=== PATIENT | male | born 1935 | race African-American/Black ===

== ENCOUNTER 2019-09-19 15:22 | Inpatient (IN) | payer MEDICARE ==
[~2019-09-19] VITALS: Ht 185.4 cm; Wt 73.5 kg
[2019-09-19] MEDS ORDERED: SODIUM CHLORIDE 0.9% 1000ML 1,000 ML IV STA ×3 (15:25→16:34)
--- NOTE | 2019-09-19 15:36 | NUR ---
WAS IN ED WHEN PT CAME INTO FACILITY, CALLED [facility], WAS TOLD THEY JUST ADMITTED HIM FROM [facility] ON 09-16 AND WAS AT [facility] PRIOR TO ADMITTING THERE. PLAN IS TO STABILIZE AND RETURN TO [facility]
[2019-09-19 16:14] LABS: BASOPHILS # (AUTO) 0.1 (0.0-0.1); BASOPHILS % 0.4 % (0.0-1.0); EOSINOPHILS % 0.2 % (0.0-6.0); HEMATOCRIT 34.4 % (38.2-49.6); LYMPHOCYTES # (AUTO) 2.6 (1.0-3.2); LYMPHOCYTES % 10.2 % (18.0-39.1); MEAN CORPUSCULAR HEMOGLOBIN 28.7 pg (28-32); MEAN CORPUSCULAR HGB CONC 29.1 g/dL (31-35); MEAN CORPUSCULAR VOLUME 98.6 fL (81-99); MONOCYTES # (AUTO) 1.8 (0.2-0.8); MONOCYTES % 7.1 % (4.4-11.3); NEUTROPHILS # (AUTO) 20.3 (2.1-6.9); NEUTROPHILS % 80.4 % (38.7-80.0); PLATELET COUNT 150 x10e3/uL (140-360); RED BLOOD COUNT 3.49 x10e6/uL (4.3-5.7); RED CELL DISTRIBUTION WIDTH 19.7 % (11.7-14.4)
[2019-09-19 16:23] LABS: INR 1.44; PROTHROMBIN TIME 18.5 seconds (11.9-14.5)
[2019-09-19 16:24] LABS: PARTIAL THROMBOPLASTIN TIME 48.7 seconds (23.8-35.5)
--- NOTE | 2019-09-19 16:30 | NUR ---
Changed ranjan hill # 6 before placed pt on ventilator.
[2019-09-19 16:33] LABS: ALANINE AMINOTRANSFERASE 26 IU/L (0-55); ALBUMIN 1.6 g/dL (3.5-5.0); ALBUMIN/GLOBULIN RATIO 0.2 (0.8-2.0); ALKALINE PHOSPHATASE 89 IU/L (40-150); ANION GAP 12.2 mmol/L (8-16); BLOOD UREA NITROGEN 73 mg/dL (7-26); BUN/CREATININE RATIO 60 (6-25); CALCIUM 10.3 mg/dL (8.4-10.2); CARBON DIOXIDE 32 mmol/L (22-29); CHLORIDE 121 mmol/L (98-107); CREATINE KINASE 162 IU/L (30-200); CREATININE, SERUM 1.21 mg/dL (0.72-1.25); EST GLOMERULAR FILTRATION RATE > 60 ML/MIN (60-); GLUCOSE 75 mg/dL (74-118); POTASSIUM 4.2 mmol/L (3.5-5.1)
[2019-09-19] MEDS ORDERED: VANCOMYCIN 1GM/NS 250 ML 250 ML IV STA (16:34)
[2019-09-19 16:37] LABS: SODIUM 161 mmol/L (136-145)
[2019-09-19 16:38] LABS: B-TYPE NATRIURETIC PEPTIDE2 92.1 pg/mL (0-100)
[2019-09-19 16:43] LABS: LEUKOCYTE ESTERASE ,URINE LARGE (NEGATIVE); NITRITE,URINE POSITIVE (NEGATIVE); PROTEIN,URINE DIPSTICK 2+ (NEGATIVE); URINE UROBILINOGEN 0.2 mg/dL (0.2 - 1)
[2019-09-19 16:44] LABS: BACTERIA,URINE MODERATE /HPF; BILIRUBIN,URINE NEGATIVE (NEGATIVE); CLARITY,URINE CLOUDY (CLEAR); COLOR,URINE YELLOW (YELLOW); KETONES,URINE NEGATIVE (NEGATIVE); WBC,URINE (MAN) >50 /HPF (0-5)
[2019-09-19] MEDS ORDERED: CEFEPIME HCL 1 GM VIAL IV SCH (16:45)
[2019-09-19] MEDS ORDERED: LACTATED RINGER'S 1,000 ML INJ STA (17:33)
[2019-09-19] MEDS: CEFEPIME 1GM/NS 0.9% 50 ML 50 ML IV SCH (17:41)
[2019-09-19 17:44] LABS: ABG HCO3 34 mmol/L (22-26); ABG PCO2 50 mmHg (35-45); ABG PH 7.45 (7.35-7.45)
--- NOTE | 2019-09-19 17:50 | NUR ---
per [facility] pt diet fibersource at 575 mL/hr
--- NOTE | 2019-09-19 18:21 | Diagnostic Imaging Report ---
EXAMINATION: CHEST SINGLE (PORTABLE) INDICATION: COMPARISON: None FINDINGS: AP view TUBES and LINES: Tracheostomy tube tube is in place. LUNGS/PLEURA: There are bilateral patchy opacities could represent multifocal pneumonia or edema.. There is a moderate right pleural effusion with associated atelectasis. HEART AND MEDIASTINUM: The cardiomediastinal silhouette is unremarkable. BONES AND SOFT TISSUES: No acute osseous lesion. Soft tissues are unremarkable. UPPER ABDOMEN: No free air under the diaphragm. IMPRESSION: 1. Bilateral patchy opacities could represent multifocal pneumonia or edema. 2. Moderate right pleural effusion with associated atelectasis. Signed by: Jah Salmon MD on 09/19/2019 6:17 PM
--- NOTE | 2019-09-19 19:36 | Consultation ---
DATE OF CONSULTATION: Pulmonary Critical Care Consultation CHIEF COMPLAINT: Leukocytosis, hypotension, and tachypnea in a patient with metastatic lung cancer. HISTORY OF PRESENT ILLNESS: The patient is an 83-year-old man. He has a history of lung cancer and that originated in the right upper lobe. He has associated brain metastases. He was treated with surgery and radiation. He has also had problems with recurrent seizures. He required admission to [facility] in July for status epilepticus. He was intubated. He was then treated with IV antibiotics for aspiration pneumonia. He eventually required a tracheostomy and PEG. He was subsequently sent to LTAC and then to SNF. He now comes from the intermediate facility with worsening dyspnea and low blood pressure. He has no chest pain. PAST SURGICAL HISTORY: 1. Status post feeding tube. 2. Status post tracheostomy. PAST MEDICAL HISTORY: 1. Metastatic lung cancer. 2. Recurrent seizure disorder. 3. Prior CVA. 4. COPD. 5. Aspiration pneumonia. SOCIAL HISTORY: The patient is not actively smoking. He is not an active drinker. He lives at the intermediate facility. FAMILY HISTORY: Family history is noncontributory. ALLERGIES: NO KNOWN DRUG ALLERGIES. REVIEW OF SYSTEMS: There was no reported fever. He did not have headache. He had altered mental status. He did not have neck pain. He was not describing any chest pain or nausea or vomiting. He has no leg edema. PHYSICAL EXAMINATION: VITAL SIGNS: The patient is tachycardiac in the 110 to 120 range. Blood pressure is 102/41 and the saturation is now 97%. He is on a pressure regulated volume control at a rate of 18 with a tidal volume of 400 and FiO2 of 45%. His PEEP is at 5. HEENT: Shows no facial swelling or erythema. He has a tracheostomy in good position. CARDIAC: Reveals tachycardia with normal S1 and S2. LUNGS: Auscultation of lungs reveals decreased breath sounds to bases. There is no wheezing. ABDOMEN: Soft and nontender. There is no rebound or guarding. EXTREMITIES: Shows no leg edema or calf tenderness. There is atrophy and muscle loss. NEUROLOGICAL: Shows the patient not respond well. LABORATORY DATA: White blood cell count is 25.26, hemoglobin is 10, and the platelet count is 150. Today's sodium is 161 and the BUN to creatinine ratio is 73 to 1.21. Lactic acid is 5.7 and the calcium is 10.3. Albumin is 1.6. Urinalysis shows greater than 50 white blood cells. IMPRESSION: 1. Urinary tract infection with septic shock, present on admission. 2. Hypotension and hypovolemia. 3. Acute kidney injury. 4. Hypernatremia. 5. Metastatic colon cancer. 6. Recurrent seizure disorder. PLAN: 1. The patient will receive IV fluids at 30 mL/kg. 2. Broad-spectrum antibiotics. 3. Await culture results. 4. Stat portable chest x-ray. 5. ABG. 6. Continue prior seizure medications. 7. Prognosis is very poor. 8. Try and clarify code status with family. Raman Swenson MD [facility]/MODL /[id number]
[2019-09-19] MEDS: SODIUM CHLORIDE 0.45% 1,000 ML IV SCH (20:55)
[2019-09-19 21:26] LABS: ANISOCYTOSIS SLIGHT; BAND NEUTROPHILS % (MANUAL) 6 %; HYPOCHROMASIA SLIGHT; LYMPHOCYTES % (MANUAL) 12 % (19-48); MONOCYTES % (MANUAL) 6 % (3.4-9.0); NEUTROPHILS % (MANUAL) 76 % (40-74); NUCLEATED RED BLOOD CELLS 1; PLATELET ESTIMATE ADEQUATE; PLATELET MORPHOLOGY COMMENT NORMAL; POIKILOCYTOSIS SLIG; RBC MORPHOLOGY COMMENT NORMAL
[2019-09-19 22:20] LABS: ALANINE AMINOTRANSFERASE 23 IU/L (0-55); ALBUMIN 1.4 g/dL (3.5-5.0); ALBUMIN/GLOBULIN RATIO 0.2 (0.8-2.0); ALKALINE PHOSPHATASE 82 IU/L (40-150); ANION GAP 8.2 mmol/L (8-16); BLOOD UREA NITROGEN 59 mg/dL (7-26); BUN/CREATININE RATIO 66 (6-25); CALCIUM 9.3 mg/dL (8.4-10.2); CARBON DIOXIDE 30 mmol/L (22-29); CHLORIDE 127 mmol/L (98-107); EST GLOMERULAR FILTRATION RATE > 60 ML/MIN (60-); GLUCOSE 93 mg/dL (74-118); POTASSIUM 3.2 mmol/L (3.5-5.1)
[2019-09-19 22:21] LABS: SODIUM 162 mmol/L (136-145)
--- NOTE | 2019-09-19 22:50 | NUR ---
Telephone report received from Dodie Mireles RN in ER.
[2019-09-19 23:00] VITALS: BP 95/74
--- NOTE | 2019-09-19 23:00 | NUR ---
Pt received to ICU room 193 via stretcher from ER. Trach to nicholas. Garcia to gravity. Restrains intact. Full skin assessment and full assessment completed, refer to documentation improvement specialist as needed. Bed in lowest and locked position, call light in reach of the pt.
[2019-09-19] MEDS ORDERED: BUDESONIDE0.5 GM IH (23:58)
[2019-09-19] MEDS ORDERED: DOCUSATE SODIU100 MG PEG (23:58)
[2019-09-19] MEDS ORDERED: CALCIUM CARBON500 MG PEG (23:58)
[2019-09-19] MEDS ORDERED: DULCOLAX SUPP10 MG RC (23:58)
[2019-09-19] MEDS ORDERED: ACETYLCYST100 MG/1 M IH (23:58)
[2019-09-19] MEDS ORDERED: ASCORBIC ACID500 MG PEG (23:58)
[2019-09-20] VITALS (25 sets, daily range): BP systolic 71–124; BP diastolic 38–85
--- NOTE | 2019-09-20 00:03 | Diagnostic Imaging Report ---
History:Altered Comparison studies:None Technique: Axial images were obtained from the skull base to the vertex. Coronal and sagittal images reconstructed from the axial data. Intravenous contrast: None Dose modulation, iterative reconstruction, and/or weight based adjustment of the mA/kV was utilized to reduce the radiation dose to as low as reasonably achievable. Findings: Limited study by motion artifact. Scalp/skull: Left occipital craniectomy changes with overlying mesh. Partial opacification of the left mastoid air cells and left sphenoid sinus. Opacification of the left sphenoid sinus with sclerotic bone changes. Extra-axial spaces: No masses. No fluid collections. Brain sulci: Moderately prominent. Ventricles: Moderate compensatory dilatation. No hydrocephalus. Parenchyma: Scattered hypodensities in the supratentorial white matter are small vessel ischemic changes. Cortical-based hypodensity at the bilateral posterior occipital lobes and left posterior cerebellum with associated volume loss. Chronic lacunar infarct at the right lateral thalamus. No masses, hemorrhage or acute cortical vascular insults. Sellar/suprasellar region: No abnormalities. Craniocervical junction: Patent foramen magnum. No Chiari one malformation. Incidental findings: Atherosclerotic calcifications in the carotid siphons and vertebral arteries . Impression: Limited study by motion artifact. No significant acute abnormalities. Chronic findings: 1. Moderate generalized volume loss. 2. Moderate supratentorial white matter small vessel ischemic changes. 3. Remote insults at the bilateral posterior occipital lobes. 4. Left occipital craniectomy with underlying encephalomalacia of the ipsilateral posterior cerebellum. 5. Chronic inflammatory changes of the left sphenoid sinus. Signed by: DR Ran Gordon M.D. on 09/20/2019 12:00 AM
[2019-09-20] MEDS ORDERED: GUAIFENESI100 MG/5 M PEG (00:05)
[2019-09-20] MEDS ORDERED: FAMOTIDINE20 MG PEG (00:05)
[2019-09-20] MEDS ORDERED: ENOXAPARIN40 MG/0.4 SC (00:05)
[2019-09-20] MEDS ORDERED: IPRAT-ALBUT 0.5-3 ML IH (00:05)
[2019-09-20] MEDS ORDERED: MULTI-VITAMIN1 EACH PEG (00:05)
[2019-09-20] MEDS ORDERED: GLYCOPYRROL PEG (00:05)
[2019-09-20] MEDS ORDERED: FUROSEMIDE40 MG PEG (00:05)
[2019-09-20] MEDS ORDERED: LEVETIRACETAM500 MG PEG (00:05)
[2019-09-20] MEDS ORDERED: VALPROIC A250 MG/5 M PEG (00:06)
[2019-09-20] MEDS ORDERED: QUETIAPINE FUMA25 MG PEG (00:06)
--- NOTE | 2019-09-20 04:38 | NUR ---
Nasal Flu swab collected at this time.
[2019-09-20 05:26] LABS: BASOPHILS # (AUTO) 0.1 (0.0-0.1); BASOPHILS % 0.3 % (0.0-1.0); HEMATOCRIT 25.4 % (38.2-49.6); HEMOGLOBIN 7.5 g/dL (14.0-18.0); LYMPHOCYTES # (AUTO) 1.6 (1.0-3.2); LYMPHOCYTES % 7.5 % (18.0-39.1); MEAN CORPUSCULAR HEMOGLOBIN 28.7 pg (28-32); MEAN CORPUSCULAR HGB CONC 29.5 g/dL (31-35); MEAN CORPUSCULAR VOLUME 97.3 fL (81-99); MONOCYTES # (AUTO) 1.7 (0.2-0.8); MONOCYTES % 7.8 % (4.4-11.3); NEUTROPHILS % 83.8 % (38.7-80.0); PLATELET COUNT 170 x10e3/uL (140-360); RED BLOOD COUNT 2.61 x10e6/uL (4.3-5.7); RED CELL DISTRIBUTION WIDTH 18.6 % (11.7-14.4)
[2019-09-20 05:45] LABS: ALANINE AMINOTRANSFERASE 19 IU/L (0-55); ALBUMIN 1.2 g/dL (3.5-5.0); ALBUMIN/GLOBULIN RATIO 0.3 (0.8-2.0); ALKALINE PHOSPHATASE 70 IU/L (40-150); ANION GAP 8.5 mmol/L (8-16); BLOOD UREA NITROGEN 50 mg/dL (7-26); BUN/CREATININE RATIO 64 (6-25); CALCIUM 8.5 mg/dL (8.4-10.2); CARBON DIOXIDE 28 mmol/L (22-29); CHLORIDE 126 mmol/L (98-107); CREATININE, SERUM 0.78 mg/dL (0.72-1.25); EST GLOMERULAR FILTRATION RATE > 60 ML/MIN (60-); GLUCOSE 75 mg/dL (74-118); POTASSIUM 3.5 mmol/L (3.5-5.1); SODIUM 159 mmol/L (136-145)
[2019-09-20] MEDS: CEFEPIME 1GM/NS 0.9% 50 ML 50 ML IV SCH (06:20)
[2019-09-20] MEDS: SODIUM CHLORIDE 0.45% 1,000 ML IV SCH ×2 (06:20→16:09)
[2019-09-20] MEDS ORDERED: NOREPINEPHRINE 8 MG/D5W 250 ML 250 ML ONE (07:45)
[2019-09-20] MEDS ORDERED: SODIUM CHLORIDE 0.9% 500ML 500 ML IV ONE (08:00)
[2019-09-20] MEDS: NOREPINEPHRINE INJ 4MG/4ML 8 MG in DEXTROSE 5% 250ML 250 ML IV PRN (08:15)
--- NOTE | 2019-09-20 12:39 | Operative Report ---
DATE OF PROCEDURE: SURGEON: Raman Swenson MD PROCEDURE: Central line placement under ultrasound guidance. PREOPERATIVE DIAGNOSIS: Urinary tract infection with septic shock. POSTOPERATIVE DIAGNOSIS: Urinary tract infection with septic shock ANESTHESIA: 1% lidocaine was used for local anesthesia. CONSENT: Consent was deemed emergent and based on the patient's septic shock and hypotension, the patient needed pressors. DESCRIPTION OF PROCEDURE: The patient was placed in a supine position. The right groin was prepped sterilely. A full length gown, full-length sterile drape, mask, and sterile gloves were used. The ultrasound machine was used to locate the right femoral vein. The skin was anesthetized with 1% lidocaine. The right femoral vein was then cannulated under direct visualization with a 16-gauge needle. A wire was placed through the needle. A dilator was used to dilate the skin. A triple-lumen catheter was then placed over the wire by the Seldinger technique. All the ports flushed. COMPLICATIONS: None. ESTIMATED BLOOD LOSS: Minimal. Raman Swenson MD [facility]/MODL /[id number]
--- NOTE | 2019-09-20 14:29 | NUR ---
Nutrition Intervention Note RD Recommendation(s) for Physician: -Continue Vital AF 1.2 @ goal rate of 50 mL/hr (provides 1440 kcal, 90 g protein, and 973 mL water) -Water flush per MD Plan of Care: RD following, monitoring for tolerance and adequacy Nutrition reason for involvement: Nutrition Risk Trigger MST [address] Assessment (09/20/19) Pt is a 83 year old male admitted with acute on chronic respiratory failure, hypernatremia, and septic shock. Pt has a tracheostomy and is currently mechanically ventilated. Vital AF 1.2 tube feedings were started with a goal rate of 50 mL/hr. Recommend to continue current tube feed as ordered. Unable to obtain weight history at this time and there are no previous weights in chart. Will continue to monitor. Principal Problems/Diagnoses: acute on chronic respiratory failure, hypernatremia, and septic shock PMH: metastatic lung cancer, recurrent seizure disorder, prior CVA, COPD, and aspiration pneumonia, feeding tube, and tracheostomy I/O: 900/250 GI: flat, soft, nontender abdomen Skin: unstageable sacral pressure ulcer, multiple suspected deep tissue injuries Labs: (09/20/19) Na 159, K 3.5, Cl 126, BUN 50, Cr 0.78, AST 35 Meds: norepinephrine, cefepime, NaCl @ 100 mL/hr Ht: 73 inches Wt: 157 lbs BMI: 20.7 kg/m2 IBW: 184 lbs Malnutrition Evaluation (09/20/19) Unable to assess. Will re-evaluate at follow-up as appropriate. Nutrition Prescription (Diet Order): Vital AF 1.2 @ goal rate of 50 mL/hr Estimated Nutritional Needs: 6599-6681 calories/day (20-25 kcal/kg CBW) 86-143 g protein/day (1.2-2 g pro/kg CBW) Diet Adequacy: Meeting calorie needs, Meeting protein needs with current tube feed order Tolerance: Tolerance pending Diet Education Needs Assessment: Diet education not indicated Nutrition Care Level: moderate Nutrition Diagnosis: Inadequate oral intake related to medical condition as evidenced by the pt needing mechanical ventilation and need for TF to meet energy and protein needs. Goal: Patient will meet 75-100% of estimated needs by follow up Progress: N/A Interventions: -EN: Composition, Rate, Route Monitoring/Evaluation: -Total energy intake, Total protein intake, Formula/Solution, Weight change Signed: Jennifer Sellers RD, LD
--- NOTE | 2019-09-20 16:55 | Progress Note ---
DATE: Pulmonary Critical Care Progress Note SUBJECTIVE: The patient is still not responding well. He remains on a mechanical ventilator. He had worsening hypotension overnight and had to be started on Levophed. He has received additional fluids, and his Levophed is now down is 3 mcg. PHYSICAL EXAMINATION: VITAL SIGNS: The patient is afebrile. The blood pressure is 102/72 and saturation is 100%. He is on a PRVC mode of ventilation at a rate of 18 with a tidal volume of 400. HEENT: Shows no facial swelling or erythema. CARDIAC: Reveals regular rate and rhythm with normal S1, S2. LUNGS: Auscultation of lungs shows decreased breath sounds at the bases. There is no wheezing. ABDOMEN: Soft, nontender. There is no rebound or guarding. EXTREMITIES: Show no leg edema or calf tenderness. There is no cyanosis or clubbing. SKIN: Shows no rashes. NEUROLOGIC: Shows the patient not be responding well. LABORATORY DATA: White blood cell count is 21.4, hemoglobin is 7.5, and platelet count is 170. BUN to creatinine ratio is 50:0.78. The lactic acid is 1.3. The sodium is 159. Albumin is 1.2. IMPRESSION: 1. Respiratory failure, acute on chronic. 2. Urinary tract infection with septic shock, present on admission. 3. Hypotension and hypovolemia. 4. Acute kidney injury. 5. Metastatic lung cancer. 6. Brain metastases. 7. Seizure disorder. PLAN: 1. Continue antibiotics and await culture results. 2. Continue intravenous fluids and free water. 3. Await culture results. 4. Repeat ABG. 5. Palliative Care consultation. 6. Prognosis remains very poor. 7. Case discussed with Internal Medicine, nursing staff, and Respiratory. Greater than 35 minutes in direct critical care time separate from any procedures performed. Raman Swenson MD [facility]/JOANNE /[id number]
--- NOTE | 2019-09-20 17:29 | NUR ---
WOUND CARE CONSULT FOR 83 YO MALE HX OF MUSCLE ATROPHY. INÉS 11 ON STRICT PUP STATUS AND INTERVENTIONS AND ALTERNATING PRESSURE MATTRESS. LABS: WBC-21.47 HGB-7.5 MICRO- URINE CULTURE / BLOOD CULTURE PENDING. MEDS: CEFEPIME HCL IV AND VANCOMYCIN HCL IV SKIN ASSESSMENT COMPLETE PATIENT PRESENTS WITH: 1)STAGE II PRESSURE ULCER TO SACRUM MEASURING 2 CM X 3 CM X 0.1 CM , AND 80% PINK GRANULATION, 20 % YELLOW SLOUGH AND NON BLANCHABLE DTI PERIWOUND AREA . MINIMAL SEROUSANGUINEOUS DRAINAGE. 2)DTI, DARK PURPLE NON BLANCHEABLE TO POSTERIOR SACRO GLUTEAL AREA; MEASURING 10CM X 14 CM WITH MINIMAL SEROUSANGUINEOUS DRAINAGE. 3)RIGHT 4TH TOE STAGE 1 PRESSURE ULCER MEASURING 0.5CM X 0.5CM. NON BLANCHABLE REDNESS PRESENT. NO DRAINAGE. 4)RIGHT 5TH TOE STAGE 1 PRESSURE ULCER, MEASURING 2CM X 0.8 CM X 0, NON BLANCHABLE REDNESS PRESENT. NO DRAINAGE. 5)RIGHT PROXIMAL LATERAL FOOT UNSTAGABLE ULCER MEASURING 1 CM X 4 CM ; NO DRAINAGE PRESENT. 6)RIGHT DISTAL LATERAL FOOR UNSTAGABLE ULCER MEASURING 1.5 CM X 3 CM; NO DRAINAGE PRESENT. 7)LEFT AXILLAR PINK BLANCHEABLE AREA MEASURING 1CM X 3 CM. 8)PT PRESENTS WITH MULTIPLE HEALING SCABS TO BILATERAL LOWER LEGS. RECOMMENDATIONS: NURSING TO CONTINUE TO MONITOR PATIENT AND TO FOLLOW STRICT PUP INTERVENTIONS NURSING TO CLEAN STAGE II PRESSURE POSTERIOR SACRUM WITH NORMAL SALINE, PAT DRY WITH 4X4 GAUZE, APPLY FIBRACOL TO OPEN WOUND BED, THEN APPLY VENELEX OINTMENT TO DTI AREA PERIWOUND AND COVER WITH ALLEVYN FOAM DRESSING DAILY AND NEEDED. NURSING TO CLEAN RIGHT 4TH AND 5TH TOE WITH NORMAL SALINE, PAT DRY WITH 4X4 GAUZE, PAINT WITH BETADINE, AND LEAVE OPEN TO AIR. NURSING TO CLEAN LATERAL PROXIMAL AND DISTAL UNSTABLE ULCERS TO RIGHT FOOT WITH NORMAL SALINE, PAT DRY WITH 4X4 GAUZE, PAINT WITH BETADINE, AND COVER WITH ALLEVYN FOAM. NURSING TO APPLY ALLEVYN FOAM TO BILATERAL HEELS DAILY TO RELIVE PRESSURE. NURSING TO CONTINUE TO ASSIST PATIENT NEEDED WITH MEALS AND NUTRITIONAL SUPPLEMENTS TO ENSURE PROPER REQUIREMENTS FOR HEALING NURSING TO CONTINUE TO OFFLOAD FEET AND HEELS NEEDED WITH PILLOW SUSPENSION WHEN IN BED. NURSING TO APPLY BILATERAL HEEL PROTECTORS WHILE IN BED. NURING TO APPLY LOTION TO BILATERAL LOWER LEGS. NURSING TO REPOSITION PATIENT SIDE TO SIDE Q2H AND PRN. NURSING TO CONSULT WOUND CARE NEEDED. Addendum: 09/20/19 at 1744 by Kaylee Patel RN Amended: Links added.
--- NOTE | 2019-09-20 18:20 | NUR ---
Dr. Shaila Swenson at bedside this morning to emergently place central line due to hypotension. NS bolus started. CVC placed in R femoral, per Dr. Shaila Swenson ok to use line. Levophed drip started. Lactic acid repeated. Tube feed orders given. ic designer custom came to assess wounds. Consult placed for palliative care per Dr. Ghazala Oconnell.
[2019-09-20] MEDS: MEROPENEM 1GM 100 ML IV SCH (21:03)
[2019-09-21] VITALS (25 sets, daily range): BP systolic 83–127; BP diastolic 41–101
[2019-09-21] MEDS ORDERED: VANCOMYCIN 1GM/NS 250 ML 250 ML IV ONE
[2019-09-21] MEDS ORDERED: DIATRIZOATE MEGL/DIATRIZOA SOD 30 ML BTL PO ONE (00:21)
[2019-09-21] MEDS: SODIUM CHLORIDE 0.45% 1,000 ML IV SCH (01:14)
--- NOTE | 2019-09-21 01:20 | Diagnostic Imaging Report ---
EXAM: Abdomen Radiograph 1 View(s) INDICATION: ^peg tube positon ^[id number] ^0000 COMPARISON: None FINDINGS: Severely limited study due to technique and motion artifact. The bowel gas pattern is nonspecific. A gastrostomy tube projects over the left abdomen. High density material projects over the abdominal left upper quadrant. Partially visualized bilateral lower lobe airspace disease with bilateral pleural effusions. IMPRESSION: Severely limited study due to technique and motion artifact. A gastrostomy tube projects over the left abdomen. High density material, likely contrast media, projects over the abdominal left upper quadrant; however, it is difficult to ascertain whether this material is within or external to the stomach due to the limitations of this examination. Signed by: Ever Chappell MD on 09/21/2019 1:17 AM
--- NOTE | 2019-09-21 02:29 | NUR ---
@2330 attempted to suction the pt, I discovered that the secretions from the trach has the same color and texture as the tube feed. held tube feed. notified Dr. Swenson, he said ok to hold feeding, received an order for ABG,VANCO 1g Q24HRS, and CXR. pt resting, VS stable will continue to monitor
[2019-09-21 05:56] LABS: BASOPHILS # (AUTO) 0.1 (0.0-0.1); BASOPHILS % 0.3 % (0.0-1.0); EOSINOPHILS # (AUTO) 0.2 (0.0-0.4); HEMATOCRIT 27.3 % (38.2-49.6); LYMPHOCYTES % 5.5 % (18.0-39.1); MEAN CORPUSCULAR HGB CONC 29.3 g/dL (31-35); MEAN CORPUSCULAR VOLUME 95.5 fL (81-99); MONOCYTES # (AUTO) 0.9 (0.2-0.8); MONOCYTES % 5.3 % (4.4-11.3); NEUTROPHILS # (AUTO) 15.4 (2.1-6.9); NEUTROPHILS % 87.2 % (38.7-80.0); PLATELET COUNT 177 x10e3/uL (140-360); RED BLOOD COUNT 2.86 x10e6/uL (4.3-5.7); RED CELL DISTRIBUTION WIDTH 18.7 % (11.7-14.4)
[2019-09-21 06:10] LABS: ALANINE AMINOTRANSFERASE 22 IU/L (0-55); ALBUMIN 1.2 g/dL (3.5-5.0); ALBUMIN/GLOBULIN RATIO 0.2 (0.8-2.0); ALKALINE PHOSPHATASE 96 IU/L (40-150); ANION GAP 9.7 mmol/L (8-16); BLOOD UREA NITROGEN 37 mg/dL (7-26); BUN/CREATININE RATIO 48 (6-25); CALCIUM 9.1 mg/dL (8.4-10.2); CARBON DIOXIDE 26 mmol/L (22-29); CHLORIDE 125 mmol/L (98-107); CREATININE, SERUM 0.77 mg/dL (0.72-1.25); EST GLOMERULAR FILTRATION RATE > 60 ML/MIN (60-); SODIUM 158 mmol/L (136-145)
[2019-09-21 06:19] LABS: GLUCOSE 57 mg/dL (74-118)
[2019-09-21 06:20] LABS: POTASSIUM 2.7 mmol/L (3.5-5.1)
--- NOTE | 2019-09-21 06:25 | Diagnostic Imaging Report ---
EXAMINATION: CHEST SINGLE (PORTABLE) INDICATION: ^Infiltrates ^[id number] ^0545 COMPARISON: 09/19/2019 FINDINGS: AP view TUBES and LINES: Unchanged tracheostomy tube. LUNGS: Unchanged bilateral airspace disease. PLEURA: Unchanged moderate right pleural effusion. Probable small left pleural effusion. Unchanged decreased lung markings of the right lateral lung with possible pleural line. HEART AND MEDIASTINUM: The cardiomediastinal silhouette is unchanged. Unchanged fullness of the central pulmonary vasculature. BONES AND SOFT TISSUES: No acute osseous lesion. Soft tissues are unremarkable. IMPRESSION: 1. Unchanged bilateral pulmonary airspace disease suggestive of pulmonary edema. Multifocal pneumonia may appear similar. 2. Unchanged moderate right pleural effusion. Unchanged decreased markings of the right lateral lung with questionable pleural line which may reflect a small pneumothorax. Consider lateral radiography for further evaluation. Signed by: Ever Chappell MD on 09/21/2019 6:22 AM
--- NOTE | 2019-09-21 06:47 | NUR ---
Notified Dr. Swenson about the Low potassium of 2.7, and Low Blood glucose of of 57. received an order for D51/2NS @ 100mL/hr. tube feed still on hold for possible aspiration MD aware. pt resting will continue to monitor
[2019-09-21] MEDS: DEXTROSE 5%/0.45% SOD CHL 1,000 ML IV SCH ×2 (07:06→15:30)
[2019-09-21 08:21] LABS: ANISOCYTOSIS SLIGHT; BAND NEUTROPHILS % (MANUAL) 4 %; EOSINOPHILS % (MANUAL) 1 % (0-7); LYMPHOCYTES % (MANUAL) 5 % (19-48); MONOCYTES % (MANUAL) 3 % (3.4-9.0); NEUTROPHILS % (MANUAL) 83 % (40-74); PLATELET ESTIMATE ADEQUATE; PLATELET MORPHOLOGY COMMENT NORMAL; RBC MORPHOLOGY COMMENT ABNORMAL
[2019-09-21] MEDS: BALSAM PERU/CASTOR OIL 60 GM OINT...G. TP SCH (08:55)
[2019-09-21] MEDS: MEROPENEM 1GM 100 ML IV SCH ×2 (08:55→21:07)
[2019-09-21] MEDS: HYDROCODONE BIT/ACETAMINOPHEN 2.5 MG/108MG PER 5 ML SOLUTION NG PRN (10:10)
[2019-09-21] MEDS ORDERED: POTASSIUM CHLORIDE 20MEQ/100ML 200 ML IV ONE (12:30)
[2019-09-21] MEDS ORDERED: DEPAKENE 500MG/10ML UDC PEG SCH (14:30)
[2019-09-21] MEDS: OYST-CAL-D 500MG TABLET PEG SCH (14:46)
[2019-09-21] MEDS: ASCORBIC ACID 500 MG TAB PEG SCH (14:46)
[2019-09-21] MEDS: LEVETIRACETAM 500 MG TAB PEG SCH (14:47)
[2019-09-21] MEDS: VALPROATE 250MG/5ML ORAL LIQ 5ml PEG SCH (14:54)
--- NOTE | 2019-09-21 15:14 | Progress Note ---
DATE: SUBJECTIVE: The patient remains on mechanical ventilator. He is on a PRVC at a rate of 16 with a tidal volume of 600. He continues on low-dose Levophed. He is not having fevers. PHYSICAL EXAMINATION: VITAL SIGNS: The blood pressure is 93/56 and saturation is 96%. He is on a PRVC at a rate of 16 with a tidal volume of 400 and FiO2 of 45%. HEENT: Shows no facial swelling or erythema. The patient has tracheostomy in place. The site looks clean. CARDIAC: Reveals regular rate and rhythm with normal S1, S2. LUNGS: Auscultation of lungs reveals rhonchorous breath sounds bilaterally. There is no wheezing. ABDOMEN: Soft, nontender. There is no rebound or guarding. EXTREMITIES: Show no leg edema or calf tenderness. LABORATORY DATA: White blood cell count is 17.6 and hemoglobin is 8. The platelet count is 177. The potassium is 2.7 and the sodium is 158. The BUN to creatinine ratio is 37 to 0.77. RADIOGRAPHIC DATA: Chest x-ray shows bilateral airspace disease. IMPRESSION: 1. Acute on chronic respiratory failure. 2. Urinary tract infection with septic shock, present on admission. 3. Acute kidney injury. 4. Metastatic lung cancer. 5. Brain metastases. 6. Seizure disorder. 7. Hypernatremia. PLAN: 1. Continue to give free water as well as intravenous volume. 2. Wean pressures. 3. Continue current antibiotics and await pressor results. 4. Continue mechanical ventilation for now. 5. The prognosis remains very poor. 6. Case discussed with Internal Medicine, nursing staff, and Respiratory. Greater than 35 minutes in direct critical care time. Raman Swenson MD [facility]/MODL /[id number]
--- NOTE | 2019-09-21 17:39 | NUR ---
Dr. Ghazala Oconnell gave orders for potassium replacement. Wound care done. Dr. Shaila Swenson gave orders to restart tube feeds at 10 ml/hr with 200 ml q4 hrs flushes. ABG results called to Dr. Shaila Swenson. Orders given for specialty bed, pt placed on bed. Will continue to monitor.
--- NOTE | 2019-09-21 18:58 | NUR ---
Pt went into a run of afib RVR with HR in 150's. Dr. Shaila Swenson informed orders given for echocardiogram and amiodarone protocol.
[2019-09-21] MEDS ORDERED: AMIODARONE HCL 150 MG/100 ML BAG IV ONE (19:00)
[2019-09-21] MEDS: AMIODARONE HCL 900 MG in DEXTROSE 5% 500ML 500 ML IV SCH (20:00)
[2019-09-21] MEDS: ENOXAPARIN SOD INJ 40 MG/0.4 ML SYR SC SCH (21:07)
[2019-09-21] MEDS: VANCOMYCIN 1GM/NS 250 ML 250 ML IV SCH (23:59)
[2019-09-22] VITALS (25 sets, daily range): BP systolic 75–131; BP diastolic 51–87
[2019-09-22] MEDS: AMIODARONE HCL 900 MG in DEXTROSE 5% 500ML 500 ML IV SCH (02:00)
[2019-09-22] MEDS: OYST-CAL-D 500MG TABLET PEG SCH ×2 (02:21→13:51)
[2019-09-22] MEDS: DEXTROSE 5%/0.45% SOD CHL 1,000 ML IV SCH (02:21)
[2019-09-22] MEDS: LEVETIRACETAM 500 MG TAB PEG SCH ×2 (02:21→13:51)
[2019-09-22] MEDS: ASCORBIC ACID 500 MG TAB PEG SCH ×2 (02:21→13:51)
[2019-09-22] MEDS: VALPROATE 250MG/5ML ORAL LIQ 5ml PEG SCH ×2 (02:21→13:51)
[2019-09-22 05:19] LABS: BASOPHILS % 0.3 % (0.0-1.0); EOSINOPHILS # (AUTO) 0.3 (0.0-0.4); EOSINOPHILS % 2.1 % (0.0-6.0); HEMOGLOBIN 7.5 g/dL (14.0-18.0); LYMPHOCYTES # (AUTO) 1.4 (1.0-3.2); LYMPHOCYTES % 8.9 % (18.0-39.1); MEAN CORPUSCULAR HEMOGLOBIN 28.4 pg (28-32); MEAN CORPUSCULAR VOLUME 94.7 fL (81-99); MONOCYTES # (AUTO) 1.1 (0.2-0.8); MONOCYTES % 6.9 % (4.4-11.3); NEUTROPHILS # (AUTO) 12.3 (2.1-6.9); NEUTROPHILS % 80.8 % (38.7-80.0); PLATELET COUNT 155 x10e3/uL (140-360); RED BLOOD COUNT 2.64 x10e6/uL (4.3-5.7); RED CELL DISTRIBUTION WIDTH 18.7 % (11.7-14.4)
[2019-09-22 05:46] LABS: ALANINE AMINOTRANSFERASE 20 IU/L (0-55); ALBUMIN 1.1 g/dL (3.5-5.0); ALBUMIN/GLOBULIN RATIO 0.2 (0.8-2.0); ALKALINE PHOSPHATASE 101 IU/L (40-150); BLOOD UREA NITROGEN 32 mg/dL (7-26); BUN/CREATININE RATIO 41 (6-25); CALCIUM 8.8 mg/dL (8.4-10.2); CARBON DIOXIDE 26 mmol/L (22-29); CHLORIDE 123 mmol/L (98-107); CREATININE, SERUM 0.78 mg/dL (0.72-1.25); EST GLOMERULAR FILTRATION RATE > 60 ML/MIN (60-); GLUCOSE 105 mg/dL (74-118); SODIUM 153 mmol/L (136-145)
[2019-09-22] MEDS ORDERED: D5/.45NS KCL 40MEQ **PREMIX BAG 1000ML IV SCH (06:45)
[2019-09-22] MEDS: MEROPENEM 1GM 100 ML IV SCH ×2 (08:05→20:38)
[2019-09-22] MEDS: BALSAM PERU/CASTOR OIL 60 GM OINT...G. TP SCH (08:06)
[2019-09-22 09:18] LABS: BAND NEUTROPHILS % (MANUAL) 3 %; EOSINOPHILS % (MANUAL) 1 % (0-7); LYMPHOCYTES % (MANUAL) 4 % (19-48); MONOCYTES % (MANUAL) 2 % (3.4-9.0); NEUTROPHILS % (MANUAL) 88 % (40-74); PLATELET ESTIMATE ADEQUATE
[2019-09-22 09:19] LABS: ANISOCYTOSIS SLIGHT; PLATELET MORPHOLOGY COMMENT NORMAL
[2019-09-22] MEDS: D5/.45NS KCL 40MEQ 1,000 ML IV SCH ×2 (09:22→19:03)
--- NOTE | 2019-09-22 11:01 | Progress Note ---
DATE: SUBJECTIVE: The patient is afebrile. He remains on mechanical ventilation. His hemodynamics have improved. PHYSICAL EXAMINATION: VITAL SIGNS: Stable. The blood pressure is 96/74 and pulse is 73. HEENT: Shows no facial swelling or erythema. There is a tracheostomy in good position. The patient is on a PRVC mode of ventilation. CARDIAC: Reveals regular rate and rhythm with normal S1 and S2. LUNGS: Auscultation of lungs reveals decreased breath sounds at the bases. There is no wheezing. ABDOMEN: Soft and nontender. There is no rebound or guarding. EXTREMITIES: Shows no leg edema or calf tenderness. There is no cyanosis or clubbing. SKIN: Shows no rashes. LABORATORY DATA: Sodium is 153 and the potassium is 3.0. The BUN to creatinine ratio is 32 to 0.79. White blood cell count is 15.2 and the hemoglobin is 7.5. The platelet count is 155. IMPRESSION: 1. Aspiration pneumonia with sepsis, present on admission. 2. [id number] respiratory failure. 3. Urinary tract infection. 4. Acute kidney injury. 5. Metastatic lung cancer. 6. Seizure disorder. 7. Brain metastases. 8. Hypernatremia. PLAN: 1. Continue free water. 2. Replace potassium. 3. Continue current antibiotics. ID will see the patient in consultation. 4. Family is scheduled to visit the patient tomorrow. 5. Prognosis remains very poor. Raman Swenson MD [facility]/MODL /[id number]
--- NOTE | 2019-09-22 11:31 | NUR ---
INFECTIOUS DISEASE CONSULT Thank you for asking me to see patient The patient is an 83-year-old man. He has a history of lung cancer and that originated in the right upper lobe. He has associated brain metastases. He was treated with surgery and radiation. He has also had problems with recurrent seizures. He required admission to [facility] in July for status epilepticus. He was intubated. He was then treated with IV antibiotics for aspiration pneumonia. He eventually required a tracheostomy and PEG. He was subsequently sent to LTAC and then to SNF. [facility] with worsening dyspnea and low blood pressure. He has no chest pain. PAST SURGICAL HISTORY: 1. Status post feeding tube. 2. Status post tracheostomy. PAST MEDICAL HISTORY: 1. Metastatic lung cancer. 2. Recurrent seizure disorder. 3. Prior CVA. 4. COPD. 5. Aspiration pneumonia. SOCIAL HISTORY: The patient is not actively smoking. He is not an active drinker. [facility]. FAMILY HISTORY: Family history is noncontributory. [id number]
[2019-09-22] MEDS: NOREPINEPHRINE INJ 4MG/4ML 8 MG in DEXTROSE 5% 250ML 250 ML IV PRN (12:11)
--- NOTE | 2019-09-22 12:16 | Consultation ---
DATE OF CONSULTATION: HISTORY OF PRESENT ILLNESS: Mr. Hardin is an 83-year-old male, comes in from a skilled care facility. The patient, who has a complicated medical history, has been recently in multiple admission. He does have underlying history of lung cancer with mets. The patient had surgery and radiation treatment. The patient was extremely ill, multiple admissions, had feeding tube, tracheostomy, seizure disorder from brain mets, CVA, COPD, comes in with altered mental status and shortness of breath. The patient was found to be septic. He was on antibiotic. He is currently doing slightly better. I was asked to see him. His urine culture showing yeast. His blood culture was negative. The patient is currently on meropenem, Keppra, and vancomycin. REVIEW OF SYSTEMS: Could not be obtained. PHYSICAL EXAMINATION: GENERAL: He is currently in the intensive care unit, noncommunicative. VITAL SIGNS: His vitals are stable. HEENT: Not icteric. NECK: Supple. CHEST: Few crackles. COR: S1 and S2. No S3, S4, or murmurs. ABDOMEN: Soft. Bowel sounds present. No tenderness. EXTREMITIES: No edema. SKIN: No rashes. LABORATORY DATA: White count on admission was 25. His sodium 153, potassium 3.0 with creatinine of 0.78. IMPRESSION: Sepsis, present on admission; aspiration pneumonia. He is currently on vancomycin and meropenem. Currently doing well. Prognosis is extremely poor. Lung cancer with mets to the brain. We will observe for seizure activity. The patient, who also has multiple admissions before. Agree with evaluating him for comfort care. Family is coming tomorrow to discuss the above. We will follow vancomycin trough. Clinically, he seems to be better. White count is better. Vital signs seems to be stable and his sepsis to be improving, so we will follow with you. MD [facility]/JOANNE /[id number]
[2019-09-22] MEDS: HYDROCODONE BIT/ACETAMINOPHEN 2.5 MG/108MG PER 5 ML SOLUTION NG PRN (13:52)
[2019-09-22] MEDS: AMIODARONE HCL 200 MG TAB PO SCH (17:36)
--- NOTE | 2019-09-22 18:47 | NUR ---
Per Dr. Shaila Swenson pt bridged from amiodarone drip to PO medication. Sputum culture ordered and sent to lab. Wound care performed. Dr. Oconnell planning to speak with daughter tomorrow about pt's prognosis. Will continue to monitor.
[2019-09-22] MEDS: ENOXAPARIN SOD INJ 40 MG/0.4 ML SYR SC SCH (20:38)
[2019-09-22] MEDS: VANCOMYCIN 1GM/NS 250 ML 250 ML IV SCH (23:46)
[2019-09-23] VITALS (16 sets, daily range): BP systolic 79–138; BP diastolic 57–114
[2019-09-23] MEDS: ASCORBIC ACID 500 MG TAB PEG SCH ×2 (02:37→12:35)
[2019-09-23] MEDS: VALPROATE 250MG/5ML ORAL LIQ 5ml PEG SCH ×2 (02:37→12:35)
[2019-09-23] MEDS: OYST-CAL-D 500MG TABLET PEG SCH ×2 (02:37→12:35)
[2019-09-23] MEDS: LEVETIRACETAM 500 MG TAB PEG SCH ×2 (02:37→12:35)
[2019-09-23] MEDS: D5/.45NS KCL 40MEQ 1,000 ML IV SCH ×2 (04:00→14:00)
[2019-09-23 05:43] LABS: BASOPHILS # (AUTO) 0.1 (0.0-0.1); BASOPHILS % 0.3 % (0.0-1.0); EOSINOPHILS # (AUTO) 0.4 (0.0-0.4); EOSINOPHILS % 1.9 % (0.0-6.0); HEMATOCRIT 26.4 % (38.2-49.6); HEMOGLOBIN 8.1 g/dL (14.0-18.0); LYMPHOCYTES # (AUTO) 2.1 (1.0-3.2); LYMPHOCYTES % 9.4 % (18.0-39.1); MEAN CORPUSCULAR HEMOGLOBIN 29.1 pg (28-32); MEAN CORPUSCULAR HGB CONC 30.7 g/dL (31-35); MONOCYTES # (AUTO) 1.6 (0.2-0.8); NEUTROPHILS % 79.9 % (38.7-80.0); PLATELET COUNT 174 x10e3/uL (140-360); RED BLOOD COUNT 2.78 x10e6/uL (4.3-5.7); RED CELL DISTRIBUTION WIDTH 18.7 % (11.7-14.4)
[2019-09-23 05:54] LABS: ALANINE AMINOTRANSFERASE 18 IU/L (0-55); ALBUMIN 1.1 g/dL (3.5-5.0); ALBUMIN/GLOBULIN RATIO 0.2 (0.8-2.0); ALKALINE PHOSPHATASE 119 IU/L (40-150); ANION GAP 7.8 mmol/L (8-16); BLOOD UREA NITROGEN 22 mg/dL (7-26); BUN/CREATININE RATIO 31 (6-25); CALCIUM 8.8 mg/dL (8.4-10.2); CARBON DIOXIDE 25 mmol/L (22-29); CHLORIDE 118 mmol/L (98-107); CREATININE, SERUM 0.71 mg/dL (0.72-1.25); EST GLOMERULAR FILTRATION RATE > 60 ML/MIN (60-); GLUCOSE 102 mg/dL (74-118); POTASSIUM 3.8 mmol/L (3.5-5.1); SODIUM 147 mmol/L (136-145)
[2019-09-23 07:36] LABS: EOSINOPHILS % (MANUAL) 1 % (0-7); LYMPHOCYTES % (MANUAL) 9 % (19-48); MONOCYTES % (MANUAL) 7 % (3.4-9.0); NEUTROPHILS % (MANUAL) 83 % (40-74)
[2019-09-23 07:40] LABS: ANISOCYTOSIS MODERATE; PLATELET ESTIMATE ADEQUATE; PLATELET MORPHOLOGY COMMENT FEW LARGE; RBC MORPHOLOGY COMMENT NORMAL
[2019-09-23 07:41] LABS: POLYCHROMASIA FEW
[2019-09-23] MEDS: AMIODARONE HCL 200 MG TAB PO SCH (09:58)
[2019-09-23] MEDS: BALSAM PERU/CASTOR OIL 60 GM OINT...G. TP SCH (09:58)
[2019-09-23] MEDS: MEROPENEM 1GM 100 ML IV SCH ×2 (09:58→21:00)
--- NOTE | 2019-09-23 10:40 | NUR ---
Dr Boudreaux made aware of consult.
[2019-09-23] MEDS ORDERED: ALBUMIN 25% 25GM 100ML 0.25 GM/ML BTL IV ONE (13:30)
[2019-09-23] MEDS ORDERED: ALBUMIN 25% 25GM 100ML 200 ML IV ONE (14:00)
--- NOTE | 2019-09-23 14:48 | NUR ---
PATIENT IN [facility] [id number] Sepsis, present on admission; aspiration pneumonia. He is currently on vancomycin and meropenem. Currently doing well. Prognosis is extremely poor.
--- NOTE | 2019-09-23 15:34 | NUR ---
WAS CALLED BY PALLIATIVE CARE WHOM SPOKE WITH DAUGHTER LARISSA ZELAYA. SHE TOLD HER I WOULD HAVE DOCTOR CALL HER AND DISCUSS PLAN OF CARE, CODE STATUS. TEXTED DR RAMOS AND ASKED HIM TO CALL THE DAUGHTER.
--- NOTE | 2019-09-23 15:36 | Progress Note ---
DATE: Pulmonary Critical Care Progress Note SUBJECTIVE: The patient is more awake. He has a low blood pressure and had to be started back on Levophed. He does not have any fevers. He remains on mechanical ventilation with a PRVC mode of ventilation. PHYSICAL EXAMINATION: VITAL SIGNS: The blood pressure is 106/72 and the pulse is 86. The patient is on PRVC with a tidal volume of 400 and FiO2 of 40%. His rate is set at 18, but he is breathing 30 times a minute. HEENT: Shows no facial swelling or erythema. He has a tracheostomy in good position. The site looks clean. There is no drainage. CARDIAC: Reveals regular rate and rhythm with normal S1 and S2. There are no murmurs or rubs heard. LUNGS: Auscultation of lungs reveals clear breath sounds bilaterally. There is no wheezing. ABDOMEN: Soft and nontender. There is no rebound or guarding. EXTREMITIES: Shows no leg edema or calf tenderness. There is no cyanosis or clubbing. SKIN: Shows no rashes. NEUROLOGICAL: Shows no focal abnormalities. LABORATORY DATA: White blood cell count of 22.5 and hemoglobin is 8.1. The platelet count is 174. The BUN to creatinine ratio is 22 to 0.71. Potassium is 3.8 and sodium is 147. The total protein is 6.2 and the albumin is 1.1. IMPRESSION: 1. Aspiration pneumonia with severe sepsis, present on admission. 2. Urinary tract infection. 3. Metastatic lung cancer. 4. Brain metastases. 5. Seizure disorder. 6. Acute kidney injury. 7. Gcwju-dv-tajvqwo respiratory failure. PLAN: 1. The patient will receive albumin 50 g now. 2. Wean Levophed. 3. Repeat ABG. 4. Continue current antibiotics. 5. Replace PICC line and remove femoral line. 6. Prognosis remains very poor because of the metastatic cancer and sepsis. 7. Case discussed with nursing, Respiratory, palliative care, and Internal Medicine. Raman Swenson MD [facility]/MODL /[id number]
[2019-09-23] MEDS: HYDROCODONE BIT/ACETAMINOPHEN 2.5 MG/108MG PER 5 ML SOLUTION NG PRN (16:41)
--- NOTE | 2019-09-23 18:02 | Progress Note ---
DATE: SUBJECTIVE: Mr. Hardin remains in intensive care unit, intubated, noncommunicative. OBJECTIVE: VITAL SIGNS: Stable. Afebrile. HEENT: Not icteric. NECK: Supple. CHEST: Few rhonchi. HEART: S1, S2. No S3, S4, or murmur. ABDOMEN: Soft. Bowel sounds present. EXTREMITIES: No edema. LABORATORY DATA: His white count 22.5, hemoglobin 8.1, and potassium 3.8. Protein 6.2, BUN 22. Blood cultures negative. His white count is 22.15 yesterday. MEDICATIONS: The patient is currently on Depakene, Keppra, meropenem, and vancomycin. IMPRESSION: 1. Pneumonia aspiration multilobar, healthcare-associated pneumonia. 2. Respiratory failure. 3. Lung cancer with metastases. 4. History of seizure disorder. 5. History of acute kidney injury. 6. Malnutrition. 7. Prognosis remains very poor. Continue antibiotic. Obtain vancomycin trough, which . We will follow. MD BASHIR Durham/JOANNE /[id number]
--- NOTE | 2019-09-23 19:20 | NUR ---
nurse was busy with a code charge nurse assisted picc nurse pt confused pulling arms cannot perform picc procedure due to pt being combative dr. rincon in ICU stated he would place a central line
[2019-09-23] MEDS: ENOXAPARIN SOD INJ 40 MG/0.4 ML SYR SC SCH (21:00)
[2019-09-24] VITALS (23 sets, daily range): BP systolic 81–130; BP diastolic 54–90
[2019-09-24] MEDS: VANCOMYCIN 1GM/NS 250 ML 250 ML IV SCH
[2019-09-24] MEDS: OYST-CAL-D 500MG TABLET PEG SCH ×2 (03:00→14:00)
[2019-09-24] MEDS: LEVETIRACETAM 500 MG TAB PEG SCH ×2 (03:00→14:00)
[2019-09-24] MEDS: VALPROATE 250MG/5ML ORAL LIQ 5ml PEG SCH (03:00)
[2019-09-24] MEDS: ASCORBIC ACID 500 MG TAB PEG SCH ×2 (03:00→14:00)
[2019-09-24 04:48] LABS: BASOPHILS % 0.2 % (0.0-1.0); EOSINOPHILS # (AUTO) 0.4 (0.0-0.4); EOSINOPHILS % 2.7 % (0.0-6.0); HEMATOCRIT 24.1 % (38.2-49.6); HEMOGLOBIN 7.3 g/dL (14.0-18.0); LYMPHOCYTES # (AUTO) 1.4 (1.0-3.2); LYMPHOCYTES % 8.6 % (18.0-39.1); MEAN CORPUSCULAR HEMOGLOBIN 28.3 pg (28-32); MEAN CORPUSCULAR HGB CONC 30.3 g/dL (31-35); MEAN CORPUSCULAR VOLUME 93.4 fL (81-99); MONOCYTES # (AUTO) 1.1 (0.2-0.8); NEUTROPHILS # (AUTO) 12.6 (2.1-6.9); NEUTROPHILS % 80.5 % (38.7-80.0); PLATELET COUNT 147 x10e3/uL (140-360); RED BLOOD COUNT 2.58 x10e6/uL (4.3-5.7); RED CELL DISTRIBUTION WIDTH 18.5 % (11.7-14.4)
[2019-09-24] MEDS: D5/.45NS KCL 40MEQ 1,000 ML IV SCH ×2 (05:00→17:57)
[2019-09-24 05:05] LABS: ALANINE AMINOTRANSFERASE 14 IU/L (0-55); ALBUMIN 1.5 g/dL (3.5-5.0); ALBUMIN/GLOBULIN RATIO 0.4 (0.8-2.0); ALKALINE PHOSPHATASE 82 IU/L (40-150); BLOOD UREA NITROGEN 13 mg/dL (7-26); BUN/CREATININE RATIO 21 (6-25); CARBON DIOXIDE 24 mmol/L (22-29); CHLORIDE 116 mmol/L (98-107); CREATININE, SERUM 0.61 mg/dL (0.72-1.25); EST GLOMERULAR FILTRATION RATE > 60 ML/MIN (60-); GLUCOSE 87 mg/dL (74-118); SODIUM 145 mmol/L (136-145)
[2019-09-24] MEDS: HYDROCODONE BIT/ACETAMINOPHEN 2.5 MG/108MG PER 5 ML SOLUTION NG PRN (06:54)
--- NOTE | 2019-09-24 09:45 | Diagnostic Imaging Report ---
EXAM: CHEST SINGLE (PORTABLE) DATE: 09/24/2019 5:00 AM INDICATION: Respiratory failure COMPARISON: 09/21/2019 FINDINGS/IMPRESSION: Tracheostomy cannula identified in stable position. Again noted are decreased lung markings overlying the apical/peripheral right lateral lung which was noted on prior examinations and may reflect skinfolds versus small pneumothorax. Findings are grossly unchanged from prior examinations. Consider further evaluation with lateral radiograph if clinically indicated. There is a grossly small to moderate right and small left-sided pleural effusion present. There are unchanged bilateral airspace opacities which may reflect edema or a multifocal infectious process. The cardiac mediastinal silhouette is stable in appearance. No acute osseous abnormality is identified. Signed by: Dr. Carlos Angeles MD on 09/24/2019 9:42 AM
[2019-09-24] MEDS: AMIODARONE HCL 200 MG TAB PO SCH (09:54)
[2019-09-24] MEDS: MEROPENEM 1GM 100 ML IV SCH ×2 (09:54→21:00)
[2019-09-24] MEDS: BALSAM PERU/CASTOR OIL 60 GM OINT...G. TP SCH (09:54)
--- NOTE | 2019-09-24 16:11 | Progress Note ---
DATE: SUBJECTIVE: The patient is still on mechanical ventilation. He is afebrile. He is off pressors. Dr. Oconnell spoke with his stepdaughter regarding hospice and she is considering it. PHYSICAL EXAMINATION: VITAL SIGNS: The blood pressure is 105/71 and saturation is 98%. HEENT: Shows no facial swelling or erythema. CARDIAC: Reveals regular rate and rhythm with normal S1 and S2. ABDOMEN: Soft and nontender. There is no rebound or guarding. EXTREMITIES: Shows no leg edema or calf tenderness. There is no cyanosis or clubbing. SKIN: Shows no rashes. NEUROLOGICAL: Shows no focal abnormalities. The patient is not responding appropriately. He seems a little agitated. LABORATORY DATA: White blood cell count 16.6 and the hemoglobin is 7.3. The platelet count is 147. BUN to creatinine ratio is normal. Albumin is 1.5. RADIOGRAPHIC DATA: Shows a moderate right pleural effusion. There are bilateral airspace opacities. IMPRESSION: 1. Metastatic lung cancer. 2. Aspiration pneumonia with severe sepsis. 3. Urinary tract infection. 4. Seizure disorder. 5. Acute kidney injury. 6. Brain metastases. 7. Uyztq-cr-mcdknaq respiratory failure. PLAN: 1. Continue current antibiotics. 2. Continue to monitor electrolytes, BUN, and creatinine. 3. Continue mechanical ventilation for now. 4. Family is considering hospice. MD BRITTANIE Black/LORIEL /[id number]
--- NOTE | 2019-09-24 17:41 | Progress Note ---
DATE: SUBJECTIVE: Mr. Hardin remains in the Intensive Care Unit, noncommunicative. OBJECTIVE: VITAL SIGNS: Stable. HEENT: Not icteric. NECK: Supple. CHEST: Few crackles bilateral. HEART: S1, S2. No S3, S4, or murmur. ABDOMEN: Soft. IMPRESSION: 1. Recurrent aspiration pneumonia from recurrent sepsis. 2. History of lung cancer with metastases. 3. History of acute kidney injury. 4. History of seizure disorder. 5. Malnutrition. 6. Prognosis remains poor, family is thinking of comfort care, agree with that. 7. Anemia. LABORATORY DATA: Reviewed. White count 15.56 with hemoglobin of 7.5. Sodium 145, potassium 4.0, and creatinine 0.6. He is currently on amiodarone, meropenem, and vancomycin, which were all started on September 20, continue until September 25, but agree with hospice and comfort care. MD BASHIR Durham/JOANNE /[id number]
--- NOTE | 2019-09-24 20:51 | Consultation ---
DATE OF CONSULTATION: Neurology Consultation HISTORY OF PRESENT ILLNESS: Mr. Hardin is an 83-year-old male with a history of lung cancer and associated brain metastases, status post craniotomy and status post surgical intervention. He presented with chronic respiratory failure and dyspnea as well as low blood pressure and hypotension. I was asked to see the patient for confusion, delirium, and neurocognitive issues. No evidence or reports of seizure activity. REVIEW OF SYSTEMS: Cannot be obtained due to clinical status. PHYSICAL EXAMINATION: VITAL SIGNS: Currently, he is tachycardic at 101. His blood pressure is 110/54, he is on pulse ox at about 98%. He is mechanically ventilated. GENERAL: His exam shows he is an awake and elderly, thin gentleman with diffuse muscle atrophy and muscle loss. HEENT: His eyes are looking around the room, but does not appear to be registering visual information. His pupils are reactive, however. Extraocular muscles are intact. Face appears symmetric. No nuchal rigidity. PULMONARY: Clear to auscultation. ABDOMEN: Increased tone and maybe slightly distended. EXTREMITIES: Reflexes were brisk, increased tone in upper and lower extremities including tremors, more prominent on the right than the left. Toes are upgoing bilaterally. He does not really follow commands, but response to even slight sensory stimulation in all four extremities in the face bilaterally. ASSESSMENT AND PLAN: The patient with metastatic lung cancer, possible history of a seizure disorder and brain metastases, delirium and confusion making underlying dementia worse. He is minimally responsive to the examiner, but responds outside stimulation pretty well. Question of possible seizure activity. I would recommend that we initiate or maintain Keppra at 1000 mg p.o. b.i.d. I am going to discontinue Depakote as that can contribute to delirium and agitation. He does have a clinical seizure, should not be an issue. The patient's neurocognitive status will have to monitor, it is likely being confounded and compounded by a metabolic and hypoxemic or infectious delirium. VAHE REED MD [facility]/MODL /[id number]
[2019-09-24] MEDS: ENOXAPARIN SOD INJ 40 MG/0.4 ML SYR SC SCH (21:00)
[2019-09-25] VITALS (25 sets, daily range): BP systolic 69–150; BP diastolic 29–138
[2019-09-25] MEDS: VANCOMYCIN 1GM/NS 250 ML 250 ML IV SCH (00:10)
[2019-09-25] MEDS: D5/.45NS KCL 40MEQ 1,000 ML IV SCH ×3 (01:00→15:42)
[2019-09-25] MEDS: ASCORBIC ACID 500 MG TAB PEG SCH ×2 (01:52→13:18)
[2019-09-25] MEDS: LEVETIRACETAM 500 MG TAB PEG SCH ×2 (01:52→13:17)
[2019-09-25] MEDS: OYST-CAL-D 500MG TABLET PEG SCH ×2 (01:52→13:18)
[2019-09-25] MEDS: AMIODARONE HCL 200 MG TAB PO SCH (08:11)
[2019-09-25] MEDS: BALSAM PERU/CASTOR OIL 60 GM OINT...G. TP SCH (08:11)
[2019-09-25] MEDS: MEROPENEM 1GM 100 ML IV SCH ×2 (08:11→21:55)
--- NOTE | 2019-09-25 11:45 | NUR ---
CALLED DAUGHTER TO SET UP TIME TO COME IN AND SEE PT, SHE WILL BE HERE AT 3PM CALLED ADMIN TO GET FORM TO FRONT TO GET APPROVAL.
--- NOTE | 2019-09-25 12:45 | Progress Note ---
DATE: SUBJECTIVE: Mr. Hardin remains in intensive care unit, noncommunicative on vent and pressors. Family is still taking hospice. We discussed the case with the attending. PHYSICAL EXAMINATION: GENERAL: He is noncommunicative. VITAL SIGNS: Stable, afebrile. HEENT: He is not icteric. NECK: Supple. CHEST: Few crackles. COR: S1 and S2. No S3, S4, or murmurs. ABDOMEN: Soft. IMPRESSION: Respiratory failure, sepsis, lung cancer with mets to the brain, status post craniotomy, status post radiation, postobstructive pneumonia probably aspiration pneumonia, . Continue antibiotic. Prognosis is extremely poor. Agree with hospice care. Continue antibiotic until family making decision. MD BASHIR Durham/JOANNE /[id number]
--- NOTE | 2019-09-25 15:51 | NUR ---
DAUGHTER LARISSA HERE TO SEE HER DAD, AGREED TO DNR, SPOKE WITH HER ABOUT CHOICES FOR HOSPICE COMPANIES. GAVE HER VANTAGE, [facility] AND [facility], SHE IS GOING TO SPEAK WITH [facility] AND LET ME KNOW CHOICE AND DECISION TOMORROW. LET DR RAMOS KNOW HER TIME LINE FOR DECISION.
--- NOTE | 2019-09-25 16:00 | Progress Note ---
DATE: SUBJECTIVE: The patient was weaned off Levophed. He remains on the PRVC mode of ventilation. He has some agitation. He is not having any fever. PHYSICAL EXAMINATION: VITAL SIGNS: The patient is afebrile. The blood pressure is 139/100 and saturation is 99%. He is on a PRVC at a rate of 18 and tidal volume of 400. His tracheostomy site looks clean. CARDIAC: Reveals regular rate and rhythm with normal S1 and S2. LUNGS: Auscultation of lungs reveals decreased breath sounds at the bases. There is no wheezing. ABDOMEN: Soft and nontender. There is no rebound or guarding. EXTREMITIES: Shows no leg edema or calf tenderness. There is no cyanosis or clubbing. SKIN: Shows no rashes. NEUROLOGICAL: Shows no focal abnormalities. LABORATORY DATA: BUN to creatinine ratio is normal. Other electrolytes are within normal limits. The albumin is 1.5. White blood cell count is 15.6 and the hemoglobin is 7.3. IMPRESSION: 1. Aspiration pneumonia and associated sepsis, present on admission. 2. Lung cancer with brain metastases. 3. Seizure disorder. 4. Moderate protein-calorie malnutrition. PLAN: 1. Family is coming to visit the patient today. 2. Family is considering hospice care. 3. Continue antibiotics. 4. Continue enteral feedings. Raman Swenson MD [facility]/MODL /[id number]
--- NOTE | 2019-09-25 16:34 | NUR ---
Nutrition Intervention Note RD Recommendation(s) for Physician: -Recommend Vital AF 1.2 @ goal rate of 50 mL/hr (provides 1440 kcal, 90 g protein, and 973 mL water) -Water flush per MD Plan of Care: RD following, monitoring for tolerance and adequacy Nutrition reason for involvement: follow up RD Assessment (09/25/19) Follow up. Pt remains mechanically ventilated. Pt is tolerating Vital AF 1.2 tube feedings at 20 mL/hr per RN. Recommend increasing tube feeding towards goal rate as medically appropriate. Hospice is being discussed per MD note. Will continue to monitor. (09/20/19) Pt is a 83 year old male admitted with acute on chronic respiratory failure, hypernatremia, and septic shock. Pt has a tracheostomy and is currently mechanically ventilated. Vital AF 1.2 tube feedings were started with a goal rate of 50 mL/hr. Recommend to continue current tube feed as ordered. Unable to obtain weight history at this time and there are no previous weights in chart. Will continue to monitor. Principal Problems/Diagnoses: acute on chronic respiratory failure, hypernatremia, and septic shock PMH: metastatic lung cancer, recurrent seizure disorder, prior CVA, COPD, and aspiration pneumonia, feeding tube, and tracheostomy I/O: 3125/5200 GI: flat, soft, nontender abdomen, last recorded BM 09/23 Skin: stage 2 sacral pressure ulcer, sacro gluteal DTI, right toe stage 1 pressure ulcer, right proximal lateral foot unstageable ulcer per wound care note on 09/19 Labs: (09/24) Na 145, K 4.0, Cl 116, BUN 13, Cr 0.61, Glu 87 (09/20/19) Na 159, K 3.5, Cl 126, BUN 50, Cr 0.78, AST 35 Meds: calcium carbonate, vitamin C, meropenem, vancomycin, norepinephrine, amiodarone, lovenox Ht: 73 inches Wt: 157 lbs BMI: 20.7 kg/m2 IBW: 184 lbs Malnutrition Evaluation (09/20/19) Unable to assess. Will re-evaluate at follow-up as appropriate. Nutrition Prescription (Diet Order): Vital AF 1.2 @ goal rate of 50 mL/hr and water flush of 200 mL q4hrs Estimated Nutritional Needs: 8175-6824 calories/day (20-25 kcal/kg CBW) 86-143 g protein/day (1.2-2 g pro/kg CBW) Diet Adequacy: Not meeting calorie needs, no meeting protein needs at current tube feeding rate Tolerance: Tolerating TF Diet Education Needs Assessment: Diet education not indicated Nutrition Care Level: moderate Nutrition Diagnosis: Inadequate oral intake related to medical condition as evidenced by the pt needing mechanical ventilation and need for TF to meet energy and protein needs. Goal: Patient will meet 75-100% of estimated needs by follow up Progress: goal not met Interventions: -EN: Composition, Rate, Route Monitoring/Evaluation: -Total energy intake, Total protein intake, Formula/Solution, Weight change Signed: Jennifer Sellers RD, LD
[2019-09-25] MEDS: ENOXAPARIN SOD INJ 40 MG/0.4 ML SYR SC SCH (21:55)
[2019-09-26] VITALS (26 sets, daily range): BP systolic 76–148; BP diastolic 48–116
[2019-09-26] MEDS: VANCOMYCIN 1GM/NS 250 ML 250 ML IV SCH (00:55)
[2019-09-26] MEDS ORDERED: NOREPINEPHRINE 8 MG/D5W 250 ML 250 ML ONE (01:08)
[2019-09-26] MEDS: ASCORBIC ACID 500 MG TAB PEG SCH ×2 (02:43→14:19)
[2019-09-26] MEDS: LEVETIRACETAM 500 MG TAB PEG SCH ×2 (02:43→14:19)
[2019-09-26] MEDS: OYST-CAL-D 500MG TABLET PEG SCH ×2 (02:43→14:19)
[2019-09-26] MEDS: AMIODARONE HCL 200 MG TAB PO SCH (08:32)
[2019-09-26] MEDS: MEROPENEM 1GM 100 ML IV SCH ×2 (08:32→20:52)
[2019-09-26] MEDS: BALSAM PERU/CASTOR OIL 60 GM OINT...G. TP SCH (08:32)
--- NOTE | 2019-09-26 10:48 | NUR ---
SPOKE WITH DAUGHTER AND DR RAMOS, SHE DOES NOT WANT TO WITHDRAW FROM [facility] AT THIS TIME, PT WILL RETURN TO SNF TOMORROW. SENDING CLINICALS.
[2019-09-26] MEDS: D5/.45NS KCL 40MEQ 1,000 ML IV SCH ×2 (11:43→20:52)
--- NOTE | 2019-09-26 12:53 | NUR ---
FAXED CLINICALS TO [facility] COMPLETED RTF AND PUT PACKET TOGETHER.
--- NOTE | 2019-09-26 13:25 | NUR ---
v: 96.1 86 120/77 s: confused, mildly agitated eomi, pupils sluggish face symmetric rrr mechanical ventilatory support abd tense increased tone in bue and ble dystonic vs chorioform movements in arms, possigly tardive type movements strength 4/5 in bue and ble A.P seizure - on aed delirium- infectious, and toxic encephalopathy. tx underlying metabolic dysfunction and provide supportive care no acute neuro interventions at this time
--- NOTE | 2019-09-26 14:34 | Progress Note ---
DATE: SUBJECTIVE: Mr. Hardin remains in intensive care unit, noncommunicative. The patient remains on ventilator. The family does not want to do comfort care, even though his prognosis is extremely poor. The patient, who have history of lung cancer with brain mets, seizure disorder, protein malnutrition, comes in with healthcare-associated aspiration pneumonia. Clinically seems to be a little better. Colonization was gram negative. His white count came down to 15.5 with hemoglobin of 7.3. PHYSICAL EXAMINATION: GENERAL: He is intubated, noncommunicative. VITAL SIGNS: Stable. HEENT: Not icteric. NECK: Supple. CHEST: Few crackles. COR: S1 and S2. No S3, S4, or murmur. ABDOMEN: Soft. IMPRESSION: 1. Aspiration pneumonia, healthcare-associated pneumonia, clinically getting better. Continue with IV antibiotic as ordered. The plan for him to go to skilled care facility. He is currently on meropenem. Continue with meropenem at 500 IV q.8. Can discontinue vancomycin and to finish 14 days. 2. Seizure disorder. 3. Lung cancer with metastasis. 4. Prognosis remains poor. 5. We will follow. MD BASHIR Durham/JOANNE /[id number]
--- NOTE | 2019-09-26 17:40 | Progress Note ---
DATE: Pulmonary Critical Care Progress Note SUBJECTIVE: The patient continues to have purulent phlegm. He is off Levophed. He was placed on trach collar trial today. He is tolerating it for about half an hour. Stepdaughter met with hospice yesterday. Although, she will allow the patient to be DNR, she does not want hospice at this time. PHYSICAL EXAMINATION: VITAL SIGNS: The patient is afebrile. The blood pressure is 90/50 and the saturation is 97%. He is on a T-piece breathing 30 times a minute. HEENT: Shows no facial swelling or erythema. CARDIAC: Reveals regular rate and rhythm with normal S1 and S2. There are no murmurs or rubs heard. LUNGS: Auscultation of lungs reveals rhonchorous breath sounds bilaterally. There is no wheezing. ABDOMEN: Soft, nontender. There is no rebound or guarding. EXTREMITIES: Show no leg edema or calf tenderness. There is no cyanosis or clubbing. SKIN: Shows no rashes. NEUROLOGICAL: Shows the patient not to respond. He has some abnormal limb movements. He appears agitated. IMPRESSION: 1. Metastatic lung cancer with brain metastases. 2. Acute on chronic respiratory failure. 3. Aspiration pneumonia. 4. Moderate protein-calorie malnutrition. 5. Acute kidney injury that has resolved. 6. Anemia. 7. Atrial fibrillation. PLAN: 1. Complete antibiotics. 2. Trach collar trials as tolerated. 3. Arrangements are being made to transfer patient back to [facility]. 4. Prognosis remains very poor. 5. Continue anti-seizure regimen. 6. Case discussed with Nursing, Case Management, Respiratory and Internal Medicine. 7. Greater than 35 minutes in direct critical care time. Raman Swenson MD [facility]/LORIEL /[id number]
[2019-09-26] MEDS: ENOXAPARIN SOD INJ 40 MG/0.4 ML SYR SC SCH (20:52)
[2019-09-27] VITALS (8 sets, daily range): BP systolic 77–98; BP diastolic 51–74
[2019-09-27] MEDS: VANCOMYCIN 1GM/NS 250 ML 250 ML IV SCH (00:36)
[2019-09-27] MEDS: LEVETIRACETAM 500 MG TAB PEG SCH (02:15)
[2019-09-27] MEDS: OYST-CAL-D 500MG TABLET PEG SCH (02:15)
[2019-09-27] MEDS: ASCORBIC ACID 500 MG TAB PEG SCH (03:06)
--- NOTE | 2019-09-27 09:07 | NUR ---
CUSTODIAL FACILITY DISCHARGE INFORMATION PATIENT HAS BEEN ACCEPTED TO: NAME: [facility] ADDRESS: [id number] [facility] ACCEPTING CONSULTANT DIETITIAN: JONAH PISANO MD: RICHARD ROOM: 402 NURSE CALL REPORT TO: [phone] IMM SIGNED AND OBTAINED (if applicable): IMM THE FOLLOWING DOCUMENTS MUST ACCOMPANY PATIENT FOR TRANSFER: COPIED CHART: PACKET
[2019-09-27] MEDS: MEROPENEM 1GM 100 ML IV SCH (11:01)
[2019-09-27] MEDS: AMIODARONE HCL 200 MG TAB PO SCH (11:01)
[2019-09-27] MEDS: BALSAM PERU/CASTOR OIL 60 GM OINT...G. TP SCH (11:02)
[2019-09-27] MEDS: D5/.45NS KCL 40MEQ 1,000 ML IV SCH (11:02)
--- NOTE | 2019-09-27 11:12 | Progress Note ---
DATE: SUBJECTIVE: The patient tolerated trach collar for about an hour yesterday. He is back on mechanical ventilation. He still does not respond. He has some abnormal neurological movements. [facility]. PHYSICAL EXAMINATION: VITAL SIGNS: The patient is afebrile. The blood pressure is 90/60. Saturation is 96%. HEENT: Shows no facial swelling or erythema. CARDIAC: Reveals regular rate and rhythm with normal S1, S2. LUNGS: Auscultation of lungs shows decreased breath sounds at the bases. There is no wheezing. ABDOMEN: Soft, nontender. There is a feeding tube in place. There is no leg edema or calf tenderness. IMPRESSION: 1. Wzmqw-po-ftvxsqv respiratory failure. 2. Metastatic lung cancer with brain metastases. 3. Aspiration pneumonia. 4. Moderate protein-calorie malnutrition. 5. Acute kidney injury that has resolved. 6. Anemia. 7. Atrial fibrillation. PLAN: 1. Complete antibiotics. 2. Trach collar trials as tolerated. 3. Continue antiseizure regimen. 4. Prognosis remains poor. The family has agreed to DNR, but does not want hospice. Raman Swenson MD [facility]/JOANNE /[id number]
== END 2019-09-27 12:22 | DRG 870 ==
LOC: ER 15:22 → ERHOLD 16:51 → ICU 23:00
PROC: 5A1955Z Respiratory Ventilation, Greater than 96 Consecutive Hours (ICD-10-PCS; principal; 2019-09-19)
PROC: 02HV33Z Insertion of Infusion Device into Superior Vena Cava, Percutaneous Approach (ICD-10-PCS; 2019-09-19)
PROC: B548ZZA Ultrasonography of Superior Vena Cava, Guidance (ICD-10-PCS; 2019-09-19)
PROC: 3E043XZ Introduction of Vasopressor into Central Vein, Percutaneous Approach (ICD-10-PCS; 2019-09-19)
PROC: 02HV33Z Insertion of Infusion Device into Superior Vena Cava, Percutaneous Approach (ICD-10-PCS; 2019-09-19)
PROC: B548ZZA Ultrasonography of Superior Vena Cava, Guidance (ICD-10-PCS; 2019-09-19)
DX: A41.9 Sepsis, unspecified organism (principal); L89.154 Pressure ulcer of sacral region, stage 4; J69.0 Pneumonitis due to inhalation of food and vomit; R65.21 Severe sepsis with septic shock; J96.21 Acute and chronic respiratory failure with hypoxia; B37.1 Pulmonary candidiasis; G92 Toxic encephalopathy; N17.9 Acute kidney failure, unspecified; E87.0 Hyperosmolality and hypernatremia; C18.9 Malignant neoplasm of colon, unspecified; N30.01 Acute cystitis with hematuria; C34.11 Malignant neoplasm of upper lobe, right bronchus or lung; C79.31 Secondary malignant neoplasm of brain; C78.5 Secondary malignant neoplasm of large intestine and rectum; E44.0 Moderate protein-calorie malnutrition; E86.1 Hypovolemia; G40.909 Epilepsy, unspecified, not intractable, without status epilepticus; G13.1 Other systemic atrophy primarily affecting central nervous system in neoplastic disease; F03.90 Unspecified dementia, unspecified severity, without behavioral disturbance, psychotic disturbance, mood disturbance, and anxiety; Z93.1 Gastrostomy status; Z93.0 Tracheostomy status; D63.8 Anemia in other chronic diseases classified elsewhere; Z86.73 Personal history of transient ischemic attack (TIA), and cerebral infarction without residual deficits; I50.9 Heart failure, unspecified; L89.156 Pressure-induced deep tissue damage of sacral region; L89.891 Pressure ulcer of other site, stage 1; L89.890 Pressure ulcer of other site, unstageable; I48.91 Unspecified atrial fibrillation
CPT/HCPCS: 36415; 36600; 70450; 71045; 74018; 80053; 81001; 82550; 82553; 82805; 82948; 83605; 83880; 84484; 85025; 85610; 85730; 87040; 87070; 87086; 87186; 87205; 87400; 87635; 92950; 93005; 93306; 94002; 94003; 99251; 99285; J0692; J1650; J3370; J3480; J7030; J7040; J7060; J7121; P9047

== ENCOUNTER 2019-10-14 05:34 | Inpatient (IN) | payer MEDICARE, OTHER ==
[~2019-10-14] VITALS: Ht 185.4 cm; Wt 73.5 kg
[~2019-10-14 05:34] MED LIST: ACETYLCYST100 MG/1 M IH; ASCORBIC ACID500 MG PEG; BUDESONIDE0.5 GM IH; CALCIUM CARBON500 MG PEG; DOCUSATE SODIU100 MG PEG; DULCOLAX SUPP10 MG RC; ENOXAPARIN40 MG/0.4 SC; FAMOTIDINE20 MG PEG; FUROSEMIDE40 MG PEG; GLYCOPYRROL PEG; GUAIFENESI100 MG/5 M PEG; IPRAT-ALBUT 0.5-3 ML IH; LEVETIRACETAM500 MG PEG; MULTI-VITAMIN1 EACH PEG; QUETIAPINE FUMA25 MG PEG; VALPROIC A250 MG/5 M PEG
--- NOTE | 2019-10-14 05:37 | NUR ---
[facility] at this time
--- OUTSIDE RECORDS SUMMARY | 2019-10-14 05:37 | XMS REPORT | Continuity of Care Document ---
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 06/20/2019 06/22/2019 [facility] Hemoptysis 06/20/2019 06/22/2019 [facility] Bronchiectasis 06/20/2019 06/22/2019 [facility] Cough 06/2006/22/2019 [facility] COUGH Active 06/20/2019 [facility] SEIZURE Active 08/01/2018 [facility] NEW ONSET SEIZURE Active 08/01/2018 [facility] Discharge Diagnosis: Back pain 05/11/2014 05/13/2014 [facility] 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 [facility] HEMPTYMS Active 04/25/2012 [facility] 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 [facility] Cataracts Resolved Problem 05/02/2012 [facility] Craniotomy Resolved Problem 05/02/2012 [facility] GERD - Gastro-esophageal reflux disease Active Problem 05/02/2012 [facility] Hemoptysis Active Problem 05/02/2012 [facility] Hypertension Active Problem 05/02/2012 [facility] Knee replacement Resolved Problem 05/02/2012 [facility] 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 [facility] Bilateral cataracts (disorder) Resolved Problem 05/2019 [facility] [place] Craniotomy (procedure) Resolved Problem 06/22/2019 [facility] [place] Gastroesophageal reflux disease (disorder) Active Problem 06/22/2019 [facility] Hemoptysis (finding) Active Problem 06/22/2019 [facility] [place] Hypertensive disorder, systemic arterial (disorder) Active Problem 06/22/2019 [facility] Arthroplasty of knee (procedure) Resolved Problem 05/2019 [facility], [place] HEMOPTYSIS NOS Active [facility] UNSPECIFIED CONVULSIONS Active [facility] Medications Medication Details Route Status Patient Instructions Ordering Provider Order Date Source cefdinir 300 MG Oral Capsule 3 00 mg = 1 cap, PO, Q12H, X 7 day, # 14 cap, 0 Refill(s), Pharmacy: [facility] Active 08/09/2018 [facility] azithromycin 500 mg oral tablet 500 mg = 1 tab, PO, Daily, X 7 day, # 7 tab, 0 Refill(s), Pharmacy: [facility] Active 08/09/2018 [facility] doxycycline hyclate 150 MG Oral Tablet 150 mg = 1 tab, PO, BID, X 7 day, # 14 tab, 0 Refill(s), Pharmacy: [facility] Active 08/09/2018 [facility] vancomycin 1 g/150 mL-NaCl 0.9% intravenous solution 1,500 mg, IV, Q12H, # 2 ea, 0 Refill(s) Active 08/08/2018 [facility] Piperacillin 3000 MG / tazobactam 375 MG Injection [Zosyn] 3.375 gm, IV, Q8H, X 1 day, # 3 ea, 0 Re fill(s), Pharmacy: [facility] No Longer Active 08/08/2018 [facility] vancomycin + Sodium Chloride 0.9% IV 250 mL 2001 mg: infuse over 2.5 hours For adult patients only: Round to nearest 250 mg per Medical Staff approval MEDICATION WASTE Product Size: 1000 mg Product Wasted: ___ mg Inactive 08/07/2018 [facility] Zosyn + Sodium Chloride 0.9% IV 100 mL Notes: (Same as: Zosyn) Dosing based on Piperacillin component MEDICATION WASTE Product Size: 3375 mg Product Wasted: ___ mg No Longer Active 08/07/2018 [facility] Zosyn Notes: (Same as: Zosyn) Dosing based on Piperacillin component MEDICATION WASTE Product Size: 3375 mg Product Wasted: ___ mg Inactive 08/06/2018 [facility] Vancomycin Pharmacy Dosing + Sodium Chlo ride 0.9% IV 500 mL 2001 mg: infuse over 2.5 hours For ron lt patients only: Round to nearest 250 mg per Medical Staff approval MEDICATION WASTE Product Size: 1000 mg Product Wasted: ___ mg Inactive 08/06/2018 [facility] Vancomycin 2001 mg: infuse ov er 2.5 hours For adult patients only: Round to nearest 250 mg per Medical Staff approval No Longer Active 08/06/2018 [facility] normal saline 0.9% IV 1,000 mL 1,000 mL, Rate: 100 ml/hr, Infuse over: 10 hr, Route: IV, Dosing Weight 122 kg, Total Volume: 1,000, Start date: 08/06/18 11:36:00 CDT, Duration: 30 day, Stop date: 09/05/18 11:35:00 CDT, 2.57, m2 No Longer Active 08/06/2018 [facility] clopidogrel 75 mg oral tablet 75 mg = 1 tab, PO, Daily, # 30 tab, 1 Refill(s), Pharmacy: [facility] Active 08/06/2018 [facility] atorvastatin 40 mg oral tablet 40 mg = 1 tab, PO, Bedtime, # 30 tab, 1 Refill(s), Pharmacy: [facility] Active 08/06/2018 [facility] Aspirin 81 MG Enteric Coated Tablet 81 mg = 1 tab, PO, Daily, # 30 tab, 2 Refill(s), Pharmacy: [facility] Active 08/06/2018 [facility] Levetiracetam 1000 MG Oral Tablet [Keppra] 1,000 mg = 1 tab, PO, BID, # 60 tab, 1 Refill(s), Pharmacy: [facility] Active 08/06/2018 [facility] cefdinir 300 MG Oral Capsule 3 00 mg = 1 cap, PO, Q12H, X 7 day, # 14 cap, 0 Refill(s), Pharmacy: [facility] No Longer Active 08/06/2018 [facility] azithromycin 500 mg oral tablet 500 mg = 1 tab, PO, Daily, X 7 day, # 7 tab, 0 Refill(s), Pharmacy: [facility] No Longer Active 08/06/2018 [facility] Levofloxacin Notes: (Same as:Shaila espinal) Inactive 08/06/2018 [facility] Acetaminophen Notes: Do not ex ceed 4 gm/day. (Same as: Tylenol) No Longer Active 08/06/2018 [facility] Keppra 1,000 mg, 100 mL, Route : IVPB, Drug form: INJ, Q12H, Dosing Weight 122, kg, Start date: 08/05/18 20:55:00 CDT, Duration: 30 day, Stop date: 09/04/18 9:00:00 CDT No Longer Active 08/06/2018 [facility] Lasix Notes: (Same as: Lasix) MEDICATION WASTE Product Size: 40 mg Product Wasted: ___ mg Inactive 08/04/2018 [facility] Saline Flush 0.9% Notes: (Same as: BD Posiflush) No Longer Active 08/04/2018 [facility] Levetiracetam 1000 MG Oral Tablet [Keppra] Notes: (Same as:Keppra) No Longer Active 08/04/2018 [facility] Saline Flush 0.9% Notes: (Same as: BD Posiflush) No Longer Active 08/03/2018 [facility] Aspirin 81 MG Enteric Coated Tablet Notes: Do not crush or chew. (Same As: Ecotrin) No Longer Active 08/03/2018 [facility] Plavix Notes: (Same As: Plavix) No Longer Active 08/03/2018 [facility] Haldol Notes: (Same as: Haldol) Inactive 08/03/2018 [facility] Trazodone Notes: (Same As: Tye yrel) Inactive 08/03/2018 [facility] atorvastatin Notes: (Same as: Lipitor) No Longer Active 08/03/2018 [facility] Plavix Notes: (Same As: Plavix) Inactive 08/02/2018 [facility] Levetiracetam 1,000 mg, 100 mL , Route: IVPB, Drug form: INJ, Q12H, Dosing Weight 122, kg, Start date: 08/02/18 9:00:00 CDT, Duration: 30 day, Stop date: 08/31/18 21:00:00 CDT No Longer Active 08/02/2018 [facility] D5NS 1,000 mL 1,000 mL, Rate: 100 ml/hr, Infuse over: 10 hr, Route: IV, Dosing Weight 122 kg, Total Volume: 1,000, Start date: 08/02/18 5:02:00 CDT, Duration: 30 day, Stop date: 09/01/18 5:01:00 CDT, 2.57, m2 No Longer Active 08/02/2018 [facility] Aspirin Notes: Refrigerate. No Longer Active 08/01/2018 [facility] normal saline 0.9% IV 1,000 mL 1,000 mL, Rate: 75 ml/hr, Infuse over: 13.3 hr, Route: IV, Dosing Weight 122.727 kg, Total Volume: 1,000, Start date: 08/01/18 18:14:00 CDT, Duration: 30 day, Stop date: 08/31/18 18:13:00 CDT, 2.58, m2 No Longer Active 08/01/2018 [facility] Glucagon 1 mg, Route: IM, Drug form: PDR/INJ, PRN, Dosing Weight 122.727, kg, PRN Blood Glucose Results, Start date: 08/01/18 18:08:00 CDT, Duration: 30 day, Stop date: 08/31/18 18:07:00 CDT No Longer Active 08/01/2018 [facility] Dextrose 50% Syringe 25 gm, 50 mL, Route: IVP, Drug Form: INJ, Dosing Weight 122.727, kg, PRN, PRN Blood Glucose Results, Start date: 08/01/18 18:08:00 CDT, Duration: 30 day, Stop date: 08/31/18 18:07:00 CDT No Longer Active 08/01/2018 [facility] Keppra Notes: Same as Keppra Mix with 100 mL NS, LR or D5W MEDICATION WASTE Product Size: 500 mg Product Wasted: ___ mg Inactive 08/01/2018 [facility] Lorazepam Notes: (Same as: Byron morgan) Inactive 08/01/2018 [facility] Saline Flush 0.9% Notes: (Same as: BD Posiflush) No Longer Active 08/01/2018 [facility] Sodium Chloride 0.9% (Bolus) IV 1,000 mL, 1,000 ml/hr, Infuse Over: 1 hr, Route: IV, 1,000, Drug form: INJ, ONCE, Priority: STAT, Dosing Weight 122.727 kg, Start date: 08/01/18 12:26:00 CDT, Stop date: 08/01/18 12:26:00 CDT Inactive 08/01/2018 [facility] Protonix 40 mg, 1 tab, Route: PO, Drug form: ECTAB, Daily, Dosing Weight 75.909, kg, Start date: 04/30/12 9:00:00, Duration: 30 day, Stop date: 05/29/12 9:00:00 PO No Longer Active [place] 04/30/2012 [facility] lisinopril 10 mg, 1 tab, Route : PO, Drug form: TAB, Daily, Dosing Weight 75.909, kg, Start date: 04/30/12 9:00:00, Duration: 30 day, Stop date: 05/29/12 9:00:00 PO No Longer Active [place] 04/30/2012 [facility] Protonix 40 mg oral enteric coated tablet 40 mg, 1 tab, PO, Daily, 30 tab, Substitution Allowed, ECTAB PO On Hold Chance n 04/28/2012 [facility] lisinopril 10 mg oral tablet 1 0 mg, 1 tab, PO, Daily, 30 tab, Substitution Allowed, TAB PO On Hold [facility] n 04/28/2012 [facility] Allergies, Adverse Reactions, Alerts Substance Category Reaction Severity Reaction type Status Date Reported Comments Source NKFA Assertion Food allergy Active [facility] No Known Medication Allergies Assertion Drug aller gy [facility] Immunizations Immunization Date Given Site Status Last Updated Comments Source pneumococcal 13-valent vaccine 08/07/2018 Not Given [facility] Results Order Name Results Value Reference Range Date Interpretation Comments Source CHEM PANEL Glucose Lvl 85 70 - 99 06/20/2019 [facility] CHEM PANEL BUN 8 7 - 22 06/20/2019 [facility] CHEM PANEL Creatinine Lvl 0.58 0.50 - 1.40 06/20/2019 [facility] CHEM PANEL Sodium Lvl 140 135 - 145 06/20/2019 [facility] CHEM PANEL Potassium Lvl 3.6 3.5 - 5.1 06/20/2019 [facility] CHEM PANEL Chloride Lvl 103 95 - 109 06/20/2019 [facility] CHEM PANEL CO2 33 24 - 32 06/20/2019 [facility] CHEM PANEL Calcium Lvl 9.4 8.5 - 10.5 06/20/2019 [facility] PANEL Total Protein 8.6 6.4 - 8.4 06/20/2019 [facility] CHEM PANEL Albumin Lvl 2.8 3.5 - 5.0 06/20/2019 [facility] CHEM PANEL ALT 10 0 - 65 06/20/2019 [facility] CHEM PANEL AST 16 0 - 37 06/20/2019 [facility] CHEM PANEL Alk Phos 81 39 - 136 06/20/2019 [facility] CHEM PANEL Bili Total 0.7 0.2 - 1.3 06/20/2019 [facility] CHEM PANEL AGAP 7.6 10.0 - 20.0 06/20/2019 [facility] CHEM PANEL B/C Ratio 14 6 - 25 06/20/2019 [facility] PANEL Globulin 5.8 2.7 - 4.2 06/20/2019 [facility] CHEM PANEL A/G Ratio 0.5 0.7 - 1.6 06/20/2019 [facility] CHEM PANEL eGFR 111 06/20/2019 Result Comment: The eGFR is calculated using the CKD-EPI formula. In most young, healthy individuals the eGFR will be >90 mL/min/1.73m2. The eGFR declines with age. An eGFR of 60-89 may be normal in some populations, particularly the elderly, for whom the CKD-EPI formula has not been extensively validated. Use of the eGFR is not recommended in the following populations:

Individuals with unstable creatinine concentrations, including patients and those with serious co-morbid conditions.

Patients with extremes in muscle mass or diet.

The data above are obtained from the National Kidney Disease Education Program (NKDEP) which additionally recommends that when the eGFR is used in patients with extremes of body mass index for purposes of drug dosing, the eGFR should be multiplied by the estimated BMI. [facility] HEMATOLOGY WBC 8.7 3.7 - 10.4 06/20/2019 [facility] HEMATOLOGY RBC 4.00 4.70 - 6.10 06/20/2019 [facility] HEMATOLOGY Hgb 11.6 14.0 - 18.0 06/20/2019 [facility] HEMATOLOGY Hct 35.5 42.0 - 54.0 06/20/2019 [facility] HEMATOLOGY MCV 88.9 80.0 - 94.0 06/20/2019 [facility] MCH 29.1 27.0 - 31.0 06/20/2019 [facility] MCHC 32.8 32.0 - 36.0 06/20/2019 [facility] RDW 15.4 11.5 - 14.5 06/20/2019 [facility] Platelet 255 133 - 450 06/20/2019 [facility] MPV 8.4 7.4 - 10.4 06/20/2019 [facility] PT 14.0 12.0 - 14.7 06/20/2019 [facility] HEMATOLOGY INR 1.08 0.85 - 1.17 06/20/2019 [facility] Segs 69.4 45.0 - 75.0 06/20/2019 [facility] Lymphocytes 17.1 20.0 - 40.0 06/20/2019 [facility] HEMATOLOGY Monocytes 10.1 2.0 - 12.0 06/20/2019 [facility] HEMATOLOGY Eosinophils 2.4 0.0 - 4.0 06/20/2019 [facility] HEMATOLOGY Basophils 1.0 0.0 - 1.0 06/20/2019 [facility] Neutrophils # 6.0 1.5 - 8.1 06/20/2019 [facility] Lymphocytes # 1.5 1.0 - 5.5 06/20/2019 [facility] Monocytes # 0.9 0.0 - 0.8 06/20/2019 [facility] HEMATOLOGY Eosinophils # 0.2 0.0 - 0.5 06/20/2019 [facility] Basophils # 0.1 0.0 - 0.2 06/20/2019 [facility] CHEM PANEL B/C Ratio 43 6 - 25 08/07/2018 [facility] CHEM PANEL Globulin 4.7 2.7 - 4.2 08/07/2018 [facility] CHEM PANEL AGAP 9.8 10.0 - 20.0 08/07/2018 [facility] CHEM PANEL A/G Ratio 0.5 0.7 - 1.6 08/07/2018 [facility] CHEM PANEL eGFR 82 08/07/2018 Result Comment: The eGFR is calculated using the CKD-EPI formula. In most young, healthy individuals the eGFR will be >90 mL/min/1.73m2. The eGFR declines with age. An eGFR of 60-89 may be normal in some populations, particularly the elderly, for whom the CKD-EPI formula has not been extensively validated. Use of the eGFR is not recommended in the following populations:

Individuals with unstable creatinine concentrations, including patients and those with serious co-morbid conditions.

Patients with extremes in muscle mass or diet.

The data above are obtained from the National Kidney Disease Education Program (NKDEP) which additionally recommends that when the eGFR is used in patients with extremes of body mass index for purposes of drug dosing, the eGFR should be multiplied by the estimated BMI. [facility] 75 0 - 37 08/07[facility] ALT 37 0 - 65 08/07/2018 [facility] CHEM PANEL Bili Total 2.3 0.2 - 1.3 08/07/2018 [facility] CHEM PANEL Alk Phos 68 39 - 136 08/07/2018 [facility] CO2 25 24 - 32 08/07/2018 [facility] Chloride Lvl 115 95 - 109 08/07/2018 [facility] Potassium Lvl 3.8 3.5 - 5.1 08/07/2018 [facility] Albumin Lvl 2.2 3.5 - 5.0 08/07/2018 [facility] CHEM PANEL Total Protein 6.9 6.4 - 8.4 08/07/2018 [facility] Calcium Lvl 8.6 8.5 - 10.5 08/07/2018 [facility] BUN 43 7 - 22 08/07/2018 [facility] Sodium Lvl 146 135 - 145 08/07/2018 [facility] CHEM PANEL Creatinine Lvl 1.00 0.50 - 1.40 08/07/2018 [facility] CHEM PANEL Glucose Lvl 81 70 - 99 08/07/2018 [facility] HEMATOLOGY MPV 10.2 7.4 - 10.4 08/07/2018 [facility] HEMATOLOGY Platelet 122 133 - 450 08/07/2018 [facility] HEMATOLOGY RBC 4.05 4.70 - 6.10 08/07/2018 [facility] HEMATOLOGY Hgb 12.5 14.0 - 18.0 08/07/2018 [facility] HEMATOLOGY MCH 30.8 27.0 - 31.0 08/07/2018 [facility] HEMATOLOGY MCV 92.3 80.0 - 94.0 08/07/2018 [facility] Hct 37.4 42.0 - 54.0 08/07/2018 [facility] MCHC 33.4 32.0 - 36.0 08/07/2018 [facility] HEMATOLOGY RDW 13.8 11.5 - 14.5 08/07/2018 [facility] WBC 17.6 3.7 - 10.4 08/07/2018 [facility] Lymphocytes 8.0 20.0 - 40.0 08/07/2018 [facility] HEMATOLOGY Segs 68.0 45.0 - 75.0 08/07/2018 [facility] HEMATOLOGY Bands 11.0 0.0 - 11.0 08/07/2018 [facility] Atypical Lymphs 0.0 <=0.0 % 08/07/2018 [facility] Monocytes 13.0 2.0 - 12.0 08/07/2018 [facility] Plt Morph Brittany l (08/07/18 9:46 AM) 08/07/2018 [facility] RBC Morph Brittany l (08/07/18 9:46 AM) 08/07/2018 [facility] Hypochrom 1+ (08/07/18 9:46 AM) None Seen 08/07/2018 [facility] Neutrophils # 13.9 1.5 - 8.1 08/07/2018 [facility] Monocytes # 2.3 0.0 - 0.8 08/07/2018 [facility] Lymphocytes # 1.4 1.0 - 5.5 08/07/2018 [facility] CHEM PANEL Lactic Acid Lvl 1.5 0.5 - 2.2 08/07/2018 [facility] CHEM PANEL Lactic Acid Lvl 2.9 0.5 - 2.2 08/07/2018 [facility] CHEM PANEL Lactic Acid Lvl 3.3 0.5 - 2.2 08/06/2018 [facility] CHEM PANEL Procalcitonin Lvl 43.12 0.00 - 0.10 08/06/2018 Result Comment: Critical Result(s) anayeli ott at 08/06/2018 13:49 by kr. Read back OK. [facility] MOLECULAR DIAGNOSTIC mecA Methicilli n Resistance Not Detected (08/06/18 10:10 AM) Not Detected 08/06/2018 [facility] MOLECULAR DIAGNOSTIC vanB Vancomycin Resistance Not Detected (08/06/18 10:10 AM) Not Detected 08/06/2018 [facility] DIAGNOSTIC Joanna Vancomycin Resistance Not Detected (08/06/18 10:10 AM) Not Detected 08/06/2018 [facility] DIAGNOSTIC Streptococcus s pp. Not Detected (08/06/18 10:10 AM) Not Detected 08/06/2018 [facility] MOLECULAR DIAGNOSTIC Listeria spp. Not Detected (08/06/18 10:10 AM) Not Detected 08/06/2018 [facility] DIAGNOSTIC S. pyogenes Not Detected (08/06/18 10:10 AM) Not Detected 08/06/2018 [facility] DIAGNOSTIC S. pneumoniae Not Detected (08/06/18 10:10 AM) Not Detected 08/06/2018 [facility] DIAGNOSTIC S. agalactiae Not Detected (08/06/18 10:10 AM) Not Detected 08/06/2018 [facility] DIAGNOSTIC Staphylococcus spp. Detected *ABN* (08/06/18 10:10 AM) Not Detected 08/06/2018 [facility] DIAGNOSTIC E. faecium Not Detected (08/06/18 10:10 AM) Not Detected 08/06/2018 [facility] DIAGNOSTIC E. faecalis Not Detected (08/06/18 10:10 AM) Not Detected 08/06/2018 [facility] DIAGNOSTIC S. epidermidis Not Detected (08/06/18 10:10 AM) Not Detected 08/06/2018 [facility] DIAGNOSTIC S. aureus Not Detected (08/06/18 10:10 AM) Not Detected 08/06/2018 [facility] DIAGNOSTIC S. anginosus gr p Not Detected (08/06/18 10:10 AM) Not Detected 08/06/2018 [facility] DIAGNOSTIC S. lugdunensis Not Detected (08/06/18 10:10 AM) Not Detected 08/06/2018 [facility] CHEM PANEL Phosphorus 3.0 2.5 - 4.5 08/06/2018 [facility] CHEM PANEL Globulin 5.0 2.7 - 4.2 08/06/2018 [facility] CHEM PANEL B/C Ratio 29 6 - 25 08/06/2018 [facility] CHEM PANEL A/G Ratio 0.5 0.7 - 1.6 08/06/2018 [facility] CHEM PANEL AGAP 13.0 10.0 - 20.0 08/06/2018 [facility] CHEM PANEL eGFR 53 08/06/2018 Result Comment: The eGFR is calculated using the CKD-EPI formula. In most young, healthy individuals the eGFR will be >90 mL/min/1.73m2. The eGFR declines with age. An eGFR of 60-89 may be normal in some populations, particularly the elderly, for whom the CKD-EPI formula has not been extensively validated. Use of the eGFR is not recommended in the following populations:

Individuals with unstable creatinine concentrations, including patients and those with serious co-morbid conditions.

Patients with extremes in muscle mass or diet.

The data above are obtained from the National Kidney Disease Education Program (NKDEP) which additionally recommends that when the eGFR is used in patients with extremes of body mass index for purposes of drug dosing, the eGFR should be multiplied by the estimated BMI. [facility] CHEM PANEL BUN 42 7 - 22 08/06/2018 [facility] Creatinine Lvl 1.44 0.50 - 1.40 08/06/2018 [facility] CHEM PANEL Sodium Lvl 139 135 - 145 08/06/2018 [facility] CHEM PANEL Potassium Lvl 4.0 3.5 - 5.1 08/06/2018 [facility] CHEM PANEL Chloride Lvl 106 95 - 109 08/06/2018 [facility] CHEM PANEL Glucose Lvl 110 70 - 99 08/06/2018 [facility] CHEM PANEL Calcium Lvl 8.8 8.5 - 10.5 08/06/2018 [facility] CHEM PANEL CO2 24 24 - 32 08/06/2018 [facility] Albumin Lvl 2.6 3.5 - 5.0 08/06/2018 [facility] CHEM PANEL Total Protein 7.6 6.4 - 8.4 08/06/2018 [facility] CHEM PANEL AST 34 0 - 37 08/06/2018 [facility] ALT 13 0 - 65 08/06/2018 [facility] Alk Phos 76 39 - 136 08/06/2018 [facility] CHEM PANEL Bili Total 2.3 0.2 - 1.3 08/06/2018 [facility] Magnesium Lvl 2.1 1.8 - 2.4 08/06/2018 [facility] HEMATOLOGY RBC Morph Brittany l (3/18/19 4:04 AM) 08/06/2018 [facility] HEMATOLOGY Atypical Lymphs 0.0 <=0.0 % 08/06/2018 [facility] HEMATOLOGY Plt Morph Brittany l (08/06/18 4:04 AM) 08/06/2018 [facility] HEMATOLOGY Myelocytes 3.0 <=0.0 % 08/06/2018 [facility] HEMATOLOGY Monocytes 8.0 2.0 - 12.0 08/06/2018 [facility] [facility] HEMATOLOGY Metamyelocytes 1.0 0.0 - 1.0 08/06/2018 [facility] Monocytes # 1.2 0.0 - 0.8 08/06/2018 [facility] HEMATOLOGY Segs 55.0 45.0 - 75.0 08/06/2018 [facility] HEMATOLOGY Bands 25.0 0.0 - 11.0 08/06/2018 [facility] Lymphocytes 8.0 20.0 - 40.0 08/06/2018 [facility] Neutrophils # 12.2 1.5 - 8.1 08/06/2018 [facility] Lymphocytes # 1.2 1.0 - 5.5 08/06/2018 [facility] HEMATOLOGY Platelet 137 133 - 450 08/06/2018 [facility] HEMATOLOGY MPV 10.0 7.4 - 10.4 08/06/2018 [facility] HEMATOLOGY MCV 93.3 80.0 - 94.0 08/06/2018 [facility] Hct 45.3 42.0 - 54.0 08/06/2018 [facility] MCHC 33.0 32.0 - 36.0 08/06/2018 [facility] MCH 30.8 27.0 - 31.0 08/06/2018 [facility] HEMATOLOGY RDW 14.1 11.5 - 14.5 08/06/2018 [facility] HEMATOLOGY Hgb 15.0 14.0 - 18.0 08/06/2018 [facility] HEMATOLOGY RBC 4.86 4.70 - 6.10 08/06/2018 [facility] WBC 15.2 3.7 - 10.4 08/06/2018 [facility] CHEM PANEL Phosphorus 3.5 2.5 - 4.5 08/04/2018 [facility] CHEM PANEL Magnesium Lvl 1.9 1.8 - 2.4 08/04/2018 [facility] CHEM PANEL eGFR 94 08/04/2018 Result Comment: The eGFR is calculated using the CKD-EPI formula. In most young, healthy individuals the eGFR will be >90 mL/min/1.73m2. The eGFR declines with age. An eGFR of 60-89 may be normal in some populations, particularly the elderly, for whom the CKD-EPI formula has not been extensively validated. Use of the eGFR is not recommended in the following populations:

Individuals with unstable creatinine concentrations, including patients and those with serious co-morbid conditions.

Patients with extremes in muscle mass or diet.

The data above are obtained from the National Kidney Disease Education Program (NKDEP) which additionally recommends that when the eGFR is used in patients with extremes of body mass index for purposes of drug dosing, the eGFR should be multiplied by the estimated BMI. [facility] CHEM PANEL Total Protein 8.0 6.4 - 8.4 08/04/2018 [facility] CHEM PANEL Albumin Lvl 3.0 3.5 - 5.0 08/04/2018 [facility] CHEM PANEL A/G Ratio 0.6 0.7 - 1.6 08/04/2018 [facility] CHEM PANEL Globulin 5.0 2.7 - 4.2 08/04/2018 [facility] CHEM PANEL ALT 21 0 - 65 08/04/2018 [facility] CHEM PANEL AST 14 0 - 37 08/04/2018 [facility] CHEM PANEL Bili Total 0.9 0.2 - 1.3 08/04/2018 [facility] CHEM PANEL Alk Phos 88 39 - 136 08/04/2018 [facility] CHEM PANEL Chloride Lvl 105 95 - 109 08/04/2018 [facility] CHEM PANEL CO2 27 24 - 32 08/04/2018 [facility] CHEM PANEL Creatinine Lvl 0.86 0.50 - 1.40 08/04/2018 [facility] CHEM PANEL Potassium Lvl 3.9 3.5 - 5.1 08/04/2018 [facility] CHEM PANEL Sodium Lvl 138 135 - 145 08/04/2018 [facility] CHEM PANEL BUN 9 7 - 22 08/04/2018 [facility] CHEM PANEL Glucose Lvl 92 70 - 99 08/04/2018 [facility] CHEM PANEL AGAP 9.9 10.0 - 20.0 08/04/2018 [facility] CHEM PANEL B/C Ratio 10 6 - 25 08/04/2018 [facility] CHEM PANEL Calcium Lvl 8.5 8.5 - 10.5 08/04/2018 [facility] HEMATOLOGY Segs 70.1 45.0 - 75.0 08/04/2018 [facility] HEMATOLOGY Basophils # 0.1 0.0 - 0.2 08/04/2018 [facility] HEMATOLOGY Eosinophils # 0.2 0.0 - 0.5 08/04/2018 [facility] HEMATOLOGY Monocytes # 1.1 0.0 - 0.8 08/04/2018 [facility] HEMATOLOGY Lymphocytes # 1.1 1.0 - 5.5 08/04/2018 [facility] Neutrophils # 5.8 1.5 - 8.1 08/04/2018 [facility] Basophils 0.8 0.0 - 1.0 08/04/2018 [facility] Lymphocytes 13.5 20.0 - 40.0 08/04/2018 [facility] HEMATOLOGY Eosinophils 2.1 0.0 - 4.0 08/04/2018 [facility] Monocytes 13.5 2.0 - 12.0 08/04/2018 [facility] HEMATOLOGY Hct 39.9 42.0 - 54.0 08/04/2018 [facility] HEMATOLOGY Hgb 13.6 14.0 - 18.0 08/04/2018 [facility] HEMATOLOGY RBC 4.35 4.70 - 6.10 08/04/2018 [facility] MCH 31.3 27.0 - 31.0 08/04/2018 [facility] MCV 91.8 80.0 - 94.0 08/04/2018 [facility] HEMATOLOGY WBC 8.3 3.7 - 10.4 08/04/2018 [facility] RDW 13.7 11.5 - 14.5 08/04/2018 [facility] HEMATOLOGY Platelet 133 133 - 450 08/04/2018 [facility] MCHC 34.1 32.0 - 36.0 08/04/2018 [facility] MPV 9.9 7.4 - 10.4 08/04/2018 [facility] URINE AND STOOL UA WBC 4 0 - 5 08/03/2018 [facility] URINE AND STOOL UA Sq Epi None Seen (08/03/18 1:02 PM) Few 08/03/2018 [facility] URINE AND STOOL UA Bacteria Occasional /HPF None Seen /HPF 08/03/2018 [facility] URINE AND STOOL UA RBC <1 0 - 2 [facility] Color Yellow *NA* (08/03/18 1:02 PM) Yellow 08/03/2018 [facility] URINE AND STOOL UA pH 8.0 5.0 - 8.0 08/03/2018 [facility] URINE AND STOOL UA Protein Negative (08/03/18 1:02 PM) Negative 08/03/2018 [facility] URINE AND STOOL UA Spec Grav 1.009 <=1.030 08/03/2018 [facility] URINE AND STOOL UA Turbidity Slight *ABN* (08/03/18 1:02 PM) Clear 08/03/2018 [facility] URINE AND STOOL UA Nitrite Negative (08/03/18 1:02 PM) Negative 08/03/2018 [facility] URINE AND STOOL UA Leuk Est Negative (08/03/18 1:02 PM) Negative 08/03/2018 [facility] URINE AND STOOL UA Urobilinogen <=1.0 mg/dL 0.1 - 1.0 08/03/2018 Result Comment: performed on multistix by nm [facility] URINE AND STOOL UA Ketones Negative *NA* (08/03/18 1:02 PM) Negative 08/03/2018 [facility] URINE AND STOOL UA Glucose Negative *NA* (08/03/18 1:02 PM) Negative 08/03/2018 [facility] URINE AND STOOL UA Bili Negative *NA* (08/03/18 1:02 PM) Negative 08/03/2018 [facility] URINE AND STOOL UA Blood Negative (08/03/18 1:02 PM) Negative 08/03/2018 [facility] CHEM PANEL Magnesium Lvl 1.9 1.8 - 2.4 08/03/2018 [facility] CHEM PANEL Phosphorus 3.7 2.5 - 4.5 08/03/2018 [facility] HEMATOLOGY Eosinophils 4.1 0.0 - 4.0 08/03/2018 [facility] HEMATOLOGY Basophils 0.9 0.0 - 1.0 08/03/2018 [facility] HEMATOLOGY Basophils # 0.1 0.0 - 0.2 08/03/2018 [facility] HEMATOLOGY Eosinophils # 0.3 0.0 - 0.5 08/03/2018 [facility] LIPIDS CHD Risk 2.90 4.00 - 7.30 08/03/2018 [facility] LIPIDS VLDL 10 08/03/2018 [facility] LIPIDS LDL (Calculated) 64 <=99 mg/dL 08/03/2018 [facility] LIPIDS HDL 39 >=61 mg/dL 08/03/2018 [facility] LIPIDS Chol 113 <=199 mg/dL 08/03/2018 [facility] LIPIDS Trig 51 <=149 mg/dL 08/03/2018 [facility] SPECIAL CHEMISTRY Hgb A1C 5.2 <=5.6 % 08/03/2018 [facility] DRUG SCREEN UDS Note See Note *NA* (08/01/18 4:20 PM) 08/01/2018 [facility] DRUG SCREEN U Amph Scr Nega tive *NA* (08/01/18 4:20 PM) Negative 08/01/2018 [facility] DRUG SCREEN U Cannab Scr Nega tive *NA* (08/01/18 4:20 PM) Negative 08/01/2018 [facility] DRUG SCREEN U Opiate Scr Nega tive *NA* (08/01/18 4:20 PM) Negative 08/01/2018 [facility] DRUG SCREEN U Renita Scr Nega tive *NA* (08/01/18 4:20 PM) Negative 08/01/2018 [facility] DRUG SCREEN U Cocaine Scr Nega tive *NA* (08/01/18 4:20 PM) Negative 08/01/2018 [facility] DRUG SCREEN U Benzodiaz Scr Nega tive *NA* (08/01/18 4:20 PM) Negative 08/01/2018 [facility] DRUG SCREEN U Phencyclidine Scr Nega tive *NA* (08/01/18 4:20 PM) Negative 08/01/2018 [facility] URINE AND STOOL UA Nitrite Negative (08/01/18 4:20 PM) Negative 08/01/2018 [facility] URINE AND STOOL UA Leuk Est Negative (08/01/18 4:20 PM) Negative 08/01/2018 [facility] URINE AND STOOL UA Bili Negative *NA* (08/01/18 4:20 PM) Negative 08/01/2018 [facility] URINE AND STOOL UA Blood Small *ABN* (08/01/18 4:20 PM) Negative 08/01/2018 [facility] URINE AND STOOL UA Urobilinogen <=1.0 mg/dL 0.1 - 1.0 08/01/2018 [facility] URINE AND STOOL UA Hyal Cast 1 0 - 2 08/01/2018 [facility] URINE AND STOOL UA Mucus Few /LPF None Seen /LPF 08/01/2018 [facility] URINE AND STOOL UA WBC 1 0 - 5 08/01/2018 [facility] URINE AND STOOL UA RBC <1 0 - 2 08/01/2018 [facility] URINE AND STOOL UA Sq Epi None Seen (08/01/18 4:20 PM) Few 08/01/2018 [facility] URINE AND STOOL UA Bacteria Occasional /HPF None Seen /HPF 08/01/2018 [facility] URINE AND STOOL UA Ketones Negative *NA* (08/01/18 4:20 PM) Negative 08/01/2018 [facility] URINE AND STOOL UA Protein Negative (08/01/18 4:20 PM) Negative 08/01/2018 [facility] URINE AND STOOL UA Glucose Negative *NA* (08/01/18 4:20 PM) Negative 08/01/2018 [facility] URINE AND STOOL UA Turbidity Clear (08/01/18 4:20 PM) Clear 08/01/2018 [facility] URINE AND STOOL UA Spec Grav 1.008 <=1.030 08/01/2018 [facility] URINE AND STOOL UA pH 8.0 5.0 - 8.0 08/01/2018 [facility] URINE AND STOOL UA Color STRAW 08/01/2018 [facility] CARDIAC ENZYMES Total CK 161 12 - 191 08/01/2018 [facility] CARDIAC ENZYMES Troponin-I <0.02 0.00 - 0.40 08/01/2018 [facility] CHEM PANEL Ammonia 59.0 <=45.0 uMol/L 08/01/2018 [facility] HEMATOLOGY Basophils 0.8 0.0 - 1.0 08/01/2018 [facility] HEMATOLOGY Eosinophils 1.4 0.0 - 4.0 08/01/2018 [facility] HEMATOLOGY Basophils # 0.1 0.0 - 0.2 08/01/2018 [facility] HEMATOLOGY Eosinophils # 0.1 0.0 - 0.5 08/01/2018 [facility] HEMATOLOGY INR 1.04 0.85 - 1.17 08/01/2018 [facility] HEMATOLOGY PT 13.4 12.0 - 14.7 08/01/2018 [facility] HEMATOLOGY PTT 35.2 22.9 - 35.8 08/01/2018 [facility] TOXICOLOGY Ethanol Lvl <3.0 mg/dL 08/01/2018 [facility] TOXICOLOGY Etoh (%) <0.003 % 08/01/2018 [facility] HEMATOLOGY Segs 62.5 45.0 - 75.0 04/30/2012 Normal [facility] HEMATOLOGY Eosinophils 1.2 0.0 - 4.0 04/30/2012 Normal [facility] HEMATOLOGY Monocytes 11.5 2.0 - 12.0 04/30/2012 Normal [facility] HEMATOLOGY Lymphocytes 24.1 20.0 - 40.0 04/30/2012 Normal [facility] HEMATOLOGY Segs-Bands # 3.6 1.5 - 8.1 04/30/2012 Normal [facility] HEMATOLOGY Basophils 0.7 0.0 - 1.0 04/30/2012 Normal [facility] HEMATOLOGY Lymphocytes # 1.4 1.0 - 5.5 04/30/2012 Normal [facility] HEMATOLOGY Monocytes # 0.7 0.0 - 0.8 04/30/2012 Normal [facility] HEMATOLOGY Eosinophils # 0.1 0.0 - 0.5 04/30/2012 Normal [facility] HEMATOLOGY Basophils # 0.0 0.0 - 0.2 04/30/2012 Normal [facility] HEMATOLOGY PT 13.4 12.0 - 14.7 04/30/2012 Normal [facility] HEMATOLOGY PTT 36.7 22.9 - 35.8 04/30/2012 [facility] <sup>2</sup>Interpretive Data: Heparin T herapeutic Range: 57 - 92 Seconds [facility] HEMATOLOGY INR 1.00 0.85 - 1.17 04/30/2012 Normal <sup>1</sup>Interpretive Data: RECOMMEND ED RANGES FOR PROTIME INR:
2.0-3.0 for most medical and surgical thromboembolic states.
2.5-3.5 for artificial heart valves and recurrent embolism.

INR SHOULD BE USED ONLY FOR PATIENTS ON STABLE ANTICOAGULANT THERAPY. [facility] HEMATOLOGY Platelet 130 133 - 450 04/30/2012 LOW [facility] HEMATOLOGY MPV 10.3 7.4 - 10.4 04/30/2012 Normal [facility] HEMATOLOGY RDW 14.6 11.5 - 14.5 04/30/2012 [facility] HEMATOLOGY Hct 38.3 42.0 - 54.0 04/30/2012 [facility] HEMATOLOGY RBC 3.97 4.70 - 6.10 04/30/2012 [facility] HEMATOLOGY MCV 96.4 80.0 - 94.0 04/30/2012 [facility] HEMATOLOGY Hgb 12.6 14.0 - 18.0 04/30/2012 [facility] HEMATOLOGY MCH 31.6 27.0 - 31.0 04/30/2012 [facility] HEMATOLOGY MCHC 32.8 32.0 - 36.0 04/30/2012 [facility] HEMATOLOGY WBC 5.8 3.7 - 10.4 04/30/2012 Normal [facility] Pathology Reports No Data Provided for This Section Diagnostic Reports Report Value Date Source Chest Pulmonary Embolism CTA Radiation Dose CTDIVOL = 0 (mGy): DLP = 816.02 (mGy-cm) PROCEDURE INFORMATION: Exam: CT Angiography Chest With Contrast Exam date and time: 06/20/2019 6:30 PM Age: 83 years old Clinical indication: /cough, hemoptysis, lung cancer TECHNIQUE: Imaging protocol: Computed tomographic angiography of the chest with intravenous contrast. 3D rendering: MIP and/or 3D reconstructe d images were created by the technologist. Total DLP: 816.02 mGy-cm Radiation optimization: All CT scans at this facility use at least one of these dose optimization techniques: automated exposure control; mA and/or kV adjustment per patient size (includes targeted exams where dose is matched to clinical indication); or iterative reconstruction. Contrast material: OMNI 350; Contrast volume: 100 ml; Contrast route: IV; COMPARISON: CHEST 1VIEW DX 06/20/2019 5:35 PM FINDINGS: Pulmonary arteries: Normal. No pulmonary emboli. Aorta: Thoracic aorta contains atherosclerotic calcifications. No aortic aneurysm. No aortic dissection. Lungs: Lungs show emphysema with right apical bulla and left apical blebs. Right upper lobe posterior segment shows nonspecific bronchiectasis with adjacent parenchymal opacities. Right lower lobe apical segment shows nonspecific consolidation with bronchiectasis. Pleural space: Unremarkable. No pneumothorax. No pleural effusion. Heart: Coronary arteries contain extensive atherosclerotic calcifications. No cardiomegaly. No pericardial effusion. Lymph nodes: Unremarkable. No enlarged lymph nodes. Bones/joints: Unremarkable. No acute fracture. Soft tissues: Incompletely imaged 2.3 x 2.1 cm left renal cortical hypodense lesion shows 8 Hounsfield units average density, compatible with fluid attenuation. IMPRESSION: No acute findings. Emphysema with right apical bulla and left apical blebs. Right upper lobe posterior segment shows nonspecific bronchiectasis with adjacent parenchymal opacities. Right lower lobe apical segment shows nonspecific consolidation with bronchiectasis. Overall findings may be related to post treatment changes. Imaging findings do not exclude residual or recurrent disease. Please correlate with patient history and clinical exam. Noah Philippe MD On 06/20/2019 19:28:19; [id number] 06/20/2019 [facility] 1view DX PROCEDURE INFOR MATION: Exam: XR Chest, 1 View Exam date and time: 06/20/2019 5:35 PM Age: 83 years old Clinical indication: /cough, hemoptysis TECHNIQUE: Imaging protocol: XR of the chest Views: 1 view. COMPARISON: CHEST 1VIEW DX 08/06/2018 2:01 PM FINDINGS: Lungs: There are stable cavitary changes with interstitial scarring in the right apex. If there is clinical concern for fungal infection of a cavity, chest CT may be performed for further assessment. Mild interstitial pulmonary edema. Pleural space: Unremarkable. No pleural effusion. No pneumothorax. Heart/Mediastinum: No cardiomegaly. Bones/joints: Unremarkable. IMPRESSION: 1. Stable cavitary changes with intersti tial scarring in the right apex as detailed above. 2. Mild interstitial pulmonary edema. Victor Hugo Hanson MD On 06/20/2019 17:51:00; [id number] 06/20/2019 [facility] 1view DX Clinical Indica tion: - rule out pneumonia. Comparison: 08/04/2018 FINDINGS: AP chest radiograph was obtained. MEDIASTINUM: The cardiac silhouette is normal in size. The aorta is unremarkable. LUNGS: Reticular opacities in the right perihilar region are unchanged. Right apical blebs. Increased alveolar infiltrate in the right lower lobe. No pleural effusion. OTHER: No acute osseous abnormalities. IMPRESSION: Increased alveolar infiltrate in the right lung base, concerning for pneumonia. SL: [id number] 08/06/2018 [facility] 1view DX Patient Name: Tyrel MAGANA WHITE : 1935; Age: 82 years y/o Male MR: [id number] Study: Chest 1view DX 08/04/2018 10:01 AM CDT Ordering Physician: Salvador Person MD Comparison: Chest radiograph 08/01/2018 Clinical Indication: - short of breath Findings: Stable appearance of the lungs with emphysematous changes most prominent at the right apex. Architectural distortion in the right suprahilar region. No new consolidation or pleural effusion. The cardiac silhouette is within normal limits. Tortuous thoracic aorta. No acute osseous abnormalities. IMPRESSION: Emphysematous changes of the lungs with stable right suprahilar architectural distortion. CT of the chest with contrast is recommended for further evaluation. SL: [id number] 08/04/2018 [facility] Esophagus BA swallow function video DX (Total DAP Gy/cm2). The fluoroscopic time was (K= mGy). One spot image. MODIFIED BARIUM SWALLOW: HISTORY: Stroke, coughing with swallowing. FINDINGS: The patient swallowed multiple various barium laced consistencies with fluoroscopic visualization in the lateral projection. The fluoroscopic time was 2.2 minutes (11.07 mGy). The oral phase was delayed, possibly in part due to cognitive factors. There was a significant delay in initiation of the swallowing reflex, with pooling in the vallecula and subsequent overflow into the pyriform sinuses before swallowing. Thin liquid: Aspiration with delayed cough reflex with the cup swallow. [place]: No aspiration or penetration. Honey: Not done Pudding: No aspiration or penetration. Solid: Attempted, but patient spit out without swallowing See the Speech Pathologist's report for additional comments. MISTY [id number] 08/02/2018 [facility] Brain/Neck CTA EXAM: CTA BRAIN EXAM: CTA NECK DATE: 08/02/2018 9:44 CDT INDICATION: - seizure, possible occipital hypodensity COMPARISON: CT from 08/01/2018 TECHNIQUE: Rapid acquisition spiral CT images of the brain and neck were obtained between the aortic arch and the cranial vertex during intravenous infusion of iodinated contrast for the purposes of CT angiography. 3-D CT angiographic images are created using MIP technique at the acquisition workstation. The source images are also presented for interpretation. IV contrast: 100 mL of intravenous Omnipaque CT imaging performed at this location utilizes radiation dose optimization techniques which include one or more of the following: -Automated exposure control -Adjustment of the mA and/or kV accordin g to patient size -Use of iterative reconstruction Coresonic ue CT Radiation Dose DLP 102 mGy-cm FINDINGS: NECK CTA: Aortic arch: The great vessels originate from the aortic arch in the standard configuration. There are moderate atheromatous calcifications in the aortic arch and at the origin of the vessels without stenosis. The vertebral artery origins are patent bilaterally. Carotid arteries: The common carotid arteries are patent. There are moderate atheromatous changes in the right carotid bulb with approximately 20% short segmental stenosis involving the proximal internal carotid artery. The right external carotid artery is unremarkable. On the left, there are dense atheromatous calcifications in the left carotid bulb with approximately 50% stenosis at the origin of the internal carotid artery. Approximately a centimeter from the origin, there are atheromatous calcifications spanning 1.5 cm of the vessel resulting in 65-70 % focal stenosis. The left external carotid artery is unremarkable.. There is no evidence of vascular injury. Vertebral arteries: Codominant vertebral arteries. Mild atheromatous calcifications without stenosis in the neck. Extensive emphysematous changes are seen in the lung apices. There is right perihilar scarring and traction bronchiectasis to be correlated with prior imaging and treatment history. Partially visualized mild degenerative changes in the cervical spine. Chronic left sphenoid sinusitis. BRAIN CTA: Significant atheromatous calcifications in the intracranial internal carotid arteries without stenosis. The arteries are unremarkable. The anterior commuting arteries unremarkable. There are moderate atheromatous changes with irregularities bilateral vertebral arteries. There is focal 60-70% stenosis of the left V4 segment vertebral artery. A short segment dissection of the proximal basilar artery is seen with moderate stenosis. The rest of the basilar arteries unremarkable. The photographer apprentice, superior cerebellar arteries, anterior inferior cerebellar arteries and posterior Left occipital craniotomy with encephalomalacia in the left cerebellum and small focal hypodensity in the right occipital lobe The deep cerebral veins and major venous sinuses are normal. The brain parenchyma and other incidental structures are unremarkable. IMPRESSION: CTA of the neck: 1. Diffuse atherosclerotic changes. 2. A 20% short segment stenosis at the o rigin of the right internal carotid artery. 3. A 50% stenosis at the origin of the l eft internal carotid artery and a focal 65-70 % stenosis of the proximal internal carotid artery approximately 1.5 cm from the origin. 4. Codominant vertebral arteries without stenosis. 5. Extensive emphysematous changes in th e lung apices with scarring and atelectasis in the right perihilar region. Correlation with prior thoracic imaging and treatment history recommended. CTA of the [place]: Moderate atheromatous changes in bilateral vertebral arteries. A focal 65-70% stenosis of the V4 segment left vertebral artery. 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 Left occipital craniotomy and encephalomalacia in the left cerebellum. Chronic left sphenoid sinusitis. (All qualitative and quantitative assess ments of carotid bifurcation and proximal internal carotid artery stenosis are made referencing the distal internal carotid artery {NASCET criteria}.) 08/02/2018 [facility] Chest 1view DX Clinical Indica tion: - seizure, weakness; Comparison: 05/24/2004 FINDINGS: AP chest. Emphysema, most prominent in the right apex. Architectural distortion in the right upper lung, possibly scarring however recommend CT chest to further evaluate for spiculated lung mass. Mild left base atelectasis. Normal heart size. Aortic arch calcification. No acute osseous abnormality. IMPRESSION: 1. Emphysema, most prominent in the righ t apex. 2. Architectural distortion in the right upper lung, possibly scarring however recommend CT chest to further evaluate for spiculated lung mass. 3. Mild left base atelectasis. SL: [id number] 08/01/2018 [facility] Brain wo contrast CT Clinical Indication: - seizures Comparison: CT head dated 05/11/2014 TECHNIQUE: CT images were obtained from the foramen magnum to the vertex without the use of intravenous contrast on a multidetector CT. Coronal and sagittal reconstructions were obtained. CT imaging performed at this location utilizes radiation dose optimization techniques which include one or more of the following: -Automated exposure control -Adjustment of the mA and/or kV accordin g to patient size -Use of iterative reconstruction technRenovagen ue CT Radiation Dose DLP 2016 mGy-cm FINDINGS: BRAIN PARENCHYMA: There is been interval development of small hypodensities in the right greater than left occipital lobes. Stable appearance of a moderate size region of encephalomalacia and gliosis in the left cerebellar hemisphere. Diffuse cerebral volume loss is noted, appropriate for age. Periventricular and deep white matter hypodensities are noted, consistent with sequelae of chronic microvascular ischemia. There are no focal mass lesions on this noncontrast head CT. There is no mass effect, midline shift or edema. There are no intra-axial or extra-axial fluid collections, intraventricular or intraparenchymal hemorrhage. The pineal, sellar, brainstem, cerebellum and skull base regions appear unremarkable. Intracranial vascular calcifications are noted. VENTRICLES: The lateral ventricles, third and fourth ventricles appear unremarkable for age. The basilar cisterns are normal. ORBITS, MASTOIDS AND PARANASAL SINUSES: Status post left lens replacement. Near complete opacification of the left sphenoid sinus is noted. The visualized orbits and paranasal sinuses are unremarkable. The mastoid air cells are clear. SKULL: Remote cranioplasty changes are noted in the left suboccipital region. If there is further concern for intracranial pathology or acute stroke, MRI of the brain may be performed for complete assessment. IMPRESSION: 1. Interval development of small right greater than left hypodensities within the occipital lobes. Differential includes age indeterminant ischemic insult versus PRES in the appropriate clinical situation. 2. No intracranial hemorrhage or signif icant mass effect. 3. Sequelae of moderate chronic microva scular ischemia. 4. Stable moderate size region of encep halomalacia and gliosis in the left cerebellar hemisphere. These findings were discussed with Dr. Merritt at 1:58 PM on 08/01/2017; he expressed understanding. ----- SL: CAT 08/01/2018 [facility] Spine lumbar wo contrast MRI M RI OF THE LUMBAR SPINE DATE: 05/11/2014 at 7:28 p.m. Comparison studies: CT 05/11/2014 at 4:01 p.m. CLINICAL HISTORY: Backache, history lung cancer. Technique: Limited sagittal MR imaging was performed utilizing T1 and T2 weighting. FINDINGS: The lumbar vertebrae are intact and in normal anatomic alignment. Spondylitic changes noted with anterior marginal osteophytes and fatty endplate change at L3-L4 and L4-L5. There are no marrow replacing lesions to suggest osseous metastasis. There is a severe degree of congenital spinal canal stenosis so-called 'short pedicles.' T11-T12 to L2-L3: The intervertebral discs are well-maintained demonstrating normal height and hydration. There are no disc bulges or disc protrusions. There is no compromise of the spinal canal or neural foramina. L3-L4: There is diminished T2 signal within the intervertebral disc consistent disc degeneration and desiccation. There is a mild disc bulge indenting the ventral thecal sac combining with facet and ligamentum flavum hypertrophy and congenital canal stenosis to cause severe stenosis of the spinal canal, and moderate right, and mild left-sided neural foraminal stenosis. L4-L5: There is diminished T2 signal within the intervertebral disc consistent disc degeneration and desiccation. There is a disc bulge combining with facet and ligamentum flavum hypertrophy and congenital canal stenosis to cause severe stenosis of the spinal canal, and mild to moderate bilateral neural foraminal stenosis. L5-S1: The intervertebral disc is well maintained demonstrating normal height and hydration. There is no disc bulge or disc protrusion. There is no compromise of the spinal canal or neural foramina. The signal within the lower thoracic spinal cord is normal. IMPRESSION: 1. Limited study, no evidence of lumbar metastasis. 2. 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 3. Disc bulge at L3-L4 combining with fa cet and ligamentum flavum hypertrophy to cause severe stenosis spinal canal, moderate right comment mild left-sided neural foraminal stenosis. 4. Disc bulge at L4-L5 combining facet a nd ligamentum flavum hypertrophy to cause severe stenosis spinal canal, and mild to moderate bilateral neural foraminal stenosis. 05/11/2014 [facility] Spine lumbar wo contrast CT EX AM: CT thoracic spine without contrast. EXAM: CT lumbar spine without contrast DATE:2014-05-11 15:32:00 INDICATION: Weakness COMPARISON: CT chest 05/19/2004 Additional data: Patient has history of lung cancer and brain cancer. TECHNIQUE: Axial images of the thoracic and lumbar spine were obtained without IV contrast. FINDINGS: At least moderate lower cervical, thoracic and lumbar spine degenerative disc disease are present. No acute fracture or dislocation is seen. L3-L4 and L4-L5 discs are slightly prominent. Coarse trabeculae is seen at the pelvis, likely secondary to osteopenia. Right hilar mass is again seen, measuring 2.2 cm compared to 3.3 cm previously. There are bronchiectasis with septal thickening in the adjacent lung. Pulmonary emphysema has worsened compared to recent CT, with large the line in the right lung apex. Multiple mediastinal lymph nodes are seen, measuring subcentimeter in size. There are extensive coronary and aortic calcifications. Dense plaques are seen at the origin of superior mesenteric artery. A left renal cyst is identified in 2.3 cm. Numerous diverticuli are present in the partially visualized abdomen. IMPRESSION: 1. No acute fracture or malalignment see n, midsternum defect on the sagittal view likely artifact secondary patient motion. 2. Degenerative disc disease in the lowe r cervical, thoracic and lumbar spine. Mild prominence of the L3-L4 and L4-L5 discs is age indeterminant. MR can be obtained if needed. 3. Fusion of the bilateral SI joints can be secondary to sacroiliitis. 4. Right hilar mass, likely corresponds into patient's known lung cancer. There is bronchiectasis with septal thickening which can be secondary to treatment. Pulmonary emphysema slightly worsened compared to previous exam. 5. Extensive vascular calcifications and coronary calcifications. 6. Left renal cyst. 05/11/2014 [facility] Spine thoracic wo contrast CT EXAM: CT thoracic spine without contrast. EXAM: CT lumbar spine without contrast DATE:2014-05-11 15:32:00 INDICATION: Weakness COMPARISON: CT chest 05/19/2004 Additional data: Patient has history of lung cancer and brain cancer. TECHNIQUE: Axial images of the thoracic and lumbar spine were obtained without IV contrast. FINDINGS: At least moderate lower cervical, thoracic and lumbar spine degenerative disc disease are present. No acute fracture or dislocation is seen. L3-L4 and L4-L5 discs are slightly prominent. Coarse trabeculae is seen at the pelvis, likely secondary to osteopenia. Right hilar mass is again seen, measuring 2.2 cm compared to 3.3 cm previously. There are bronchiectasis with septal thickening in the adjacent lung. Pulmonary emphysema has worsened compared to recent CT, with large the line in the right lung apex. Multiple mediastinal lymph nodes are seen, measuring subcentimeter in size. There are extensive coronary and aortic calcifications. Dense plaques are seen at the origin of superior mesenteric artery. A left renal cyst is identified in 2.3 cm. Numerous diverticuli are present in the partially visualized abdomen. IMPRESSION: 1. No acute fracture or malalignment see n, midsternum defect on the sagittal view likely artifact secondary patient motion. 2. Degenerative disc disease in the lowe r cervical, thoracic and lumbar spine. Mild prominence of the L3-L4 and L4-L5 discs is age indeterminant. MR can be obtained if needed. 3. Fusion of the bilateral SI joints can be secondary to sacroiliitis. 4. Right hilar mass, likely corresponds into patient's known lung cancer. There is bronchiectasis with septal thickening which can be secondary to treatment. Pulmonary emphysema slightly worsened compared to previous exam. 5. Extensive vascular calcifications and coronary calcifications. 6. Left renal cyst. 05/11/2014 [facility] Consultation Notes No Data Provided for This Section Discharge Summaries No Data Provided for This Section History and Physicals No Data Provided for This Section Vital Signs Vital Sign Value Date Comments Source Systolic (mm Hg) 132 06/21/2019 [facility] Diastolic (mm Hg) 79 06/21/2019 [facility] Respitory Rate 16 06/21/2019 [facility] Heart Rate 95 06/21/2019 [facility] Temperature Oral (F) 98 F 06/21/2019 [facility] Heart Rate 96 06/20/2019 [facility] Respitory Rate 20 06/20/2019 [facility] Systolic (mm Hg) 142 06/20/2019 [facility] Diastolic (mm Hg) 94 06/20/2019 [facility] Systolic (mm Hg) 136 06/20/2019 [facility] Diastolic (mm Hg) 98 06/20/2019 [facility] Heart Rate 94 06/20/2019 [facility] Respitory Rate 17 06/20/2019 [facility] Temperature Oral (F) 98.1 F 06/20/2019 [facility] Height 193.04 cm 06/20/2019 [facility] BMI Calculated 21.96 06/20/2019 [facility] Weight 81.818 06/20/2019 [facility] Systolic (mm Hg) 123 08/07/2018 [facility] Diastolic (mm Hg) 77 08/07/2018 [facility] Respitory Rate 16 08/07/2018 [facility] Heart Rate 66 08/07/2018 [facility] Temperature Oral (F) 98.1 F 08/07/2018 [facility] Heart Rate 65 08/07/2018 [facility] Temperature Oral (F) 98.2 F 08/07/2018 [facility] Respitory Rate 16 08/07/2018 [facility] Systolic (mm Hg) 112 08/07/2018 [facility] Diastolic (mm Hg) 61 08/07/2018 [facility] Heart Rate 81 08/07/2018 [facility] Temperature Oral (F) 98.2 F 08/07/2018 [facility] Respitory Rate 17 08/07/2018 [facility] Systolic (mm Hg) 113 08/07/2018 [facility] Diastolic (mm Hg) 65 08/07/2018 [facility] Weight 122 08/02/2018 [facility] Weight 122.727 08/01/2018 [facility] BMI Calculated 32.93 08/01/2018 [facility] Height 193.04 cm 08/01/2018 [facility] Respitory Rate 18 05/12/2014 [facility] Temperature Oral (F) 98.3 F 05/12/2014 [facility] Diastolic (mm Hg) 100 05/12/2014 [facility] Systolic (mm Hg) 145 05/12/2014 [facility] Systolic (mm Hg) 119 05/12/2014 [facility] Diastolic (mm Hg) 79 05/12/2014 [facility] Temperature Oral (F) 98.0 F 05/12/2014 [facility] Respitory Rate 18 05/12/2014 [facility] Diastolic (mm Hg) 83 05/11/2014 [facility] Systolic (mm Hg) 138 05/11/2014 [facility] Heart Rate 72 05/11/2014 [facility] Respitory Rate 18 05/11/2014 [facility] Temperature Oral (F) 98.4 F 05/11/2014 [facility] Weight 91.818 05/11/2014 [facility] Diastolic (mm Hg) 94 04/30/2012 [facility] Systolic (mm Hg) 124 04/30/2012 [facility] Respitory Rate 16 04/30/2012 [facility] Heart Rate 78 04/30/2012 [facility] Systolic (mm Hg) 129 04/30/2012 [facility] Respitory Rate 18 04/30/2012 [facility] Diastolic (mm Hg) 88 04/30/2012 [facility] Systolic (mm Hg) 126 04/30/2012 [facility] Respitory Rate 18 04/30/2012 [facility] Diastolic (mm Hg) 89 04/30/2012 [facility] Heart Rate 70 04/30/2012 [facility] Height 193.04 cm 04/28/2012 [facility] Weight 75.909 04/28/2012 [facility] Encounters Location Location Details Encounter Type Encounter Number Reason For Visit Attending Provider ADM Date DC Date Status Source Verónica BUNNY [id number] KATIA TELLO 04/30/2012 04/30/2012 Active [facility] [id number] Rocco Jalloh 05/11/2014 05/12/2014 [facility] Inpatient [id number] Salvador Person 08/01/2018 08/07/2018 [facility] Emergency [id number] Allyson SepulvedaBrady 06/20/2019 06/21/2019 [facility] Procedures Procedure Code Date Perfomer Comments Source Bronchoscopy [id number] 04/30/2012 [facility] Bronchoscopy [id number] 04/30/2012 [facility] Cataract surgery [id number] 03/28/2012 [facility] Cataract surgery [id number] 03/28/2012 [facility] Craniotomy [id number] 04/27/2007 [facility] Craniotomy [id number] 04/27/2007 [facility] Knee replacement [id number] [facility] Knee replacement [id number] [facility] d Assessment and Plan Assessment and Plan Date Source Extracted from:Title: Progress Note Comp jessica * Author: Salvador Person MD Date: 08/07/18 Impression and Plan new onest seizure new CVA - based on history and clinically patient has a CVA hx of brain 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 hypertension sepsis lactic acidosis pneumonia sepsis due to above resolving day 2/3 IV vanco/zotsn, then complete 7 more days of po doxycylcine/cefdinir c/w all current medicaiotns PT/OT DC for SNF once bed available and can complete one more day of IV abx at facility dvt ppx Extracted from:Title: Discharge Summary * Author: Salvador Person MD Date: 08/07/18 Discharge Information new onest seizure new CVA - based on history and clinically patient has a CVA hx of brain 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 hypertension sepsis lactic acidosis pneumonia sepsis due to above resolving Discharge Plan Discharge Summary Plan Discharge Status: improved. Discharge instructions given: to patient. Discharge disposition: discharge to senior care facility. Prescriptions: e prescribed. Orders time spent > 35 minutes. Extracted from:Title: TELENEUROLOGY CONSULTATION NOTE Author: Liya Hassan MD Date: 08/02/18 TELENEUROLOGY CONSULTATION NOTE: CC: seizures HPI: Details are limited due to patient mental status and no family reacheable 82 yo with h/o lung cancer with metastas is to the brain s/p resection, and HTN, presents with the above complaints. He reportedly had a seizure at home with family the night before presentation, then while at his doctor's appointment he had another seizures and was sent to the ED. In the ED, he was stuporous and not following commands initially, but gradually improved to following commands. This morning, he is alert, disoriented to year and place, answers birthdate correctly, and following commands. His baseline is unknown. PMH: per HPI MEDS: Per list: lisinopril EXAM: Vitals Tmp(F) Pulse BP RR SpO2 FIO2 08/02 03:54 97.9 88 137/75 - - 98 --- 08/01 22:08 98 91 163/100 16 92 --- 08/01 20:09 98.0 88 129/93 1 5 100 --- 08/01 18:55 ---- 84 164/110 12 --- --- 08/01 17:52 ---- 86 156/89 1 4 --- --- 24 Hr Tmax: 98F (36.67c) at 08/01 22:08 Vital Signs are the last 5 in the past 48 hours. Alert, oriented to person, birthdate, not place or year, follows commands, answers some questions, also starts talking about things that are unrelated to the current conversation Language is fluent Mild dysarthria, poor dentition Can count fingers, but appears to have poor vision No gaze abnormality RUE: no drift RLE: no drift LUE: no drift LLE: no drift NIH Stroke Scale (NIHSS) 0 1a. Level of Consciousness; 0-alert 1-dr holly 2-stupor 3-comatose 1 1b. LOC Questions month and age; 0-both 1-one 2-neither 0 1c. LOC Commands open/close eyes, shoe associate/r elease non-paretic hand; 0-both 1-one 2-neither 0 2. Best Gaze; 0-nl 1-partial 2-forced ga ze 1 3. Visual Graham; 0-No visual loss. 1-Pa rtial hemianopia 2-Complete 3-Bilateral 0 4. Facial Palsy; 0-none 1-minor 2-partia l 3-complete 0 5. Motor - R arm; 0-No drift 1-Drift 2-S ome antigravity 3-No antigravity 4-No movement 0 6. Motor - R leg; 0-No drift 1-Drift 2-S ome antigravity 3-No antigravity 4-No movement 0 7. Motor - L arm; 0-No drift 1-Drift 2-S ome antigravity 3-No antigravity 4-No movement 0 8. Motor - L leg; 0-No drift 1-Drift 2-S ome antigravity 3-No antigravity 4-No movement 0 9. Limb Ataxia; 0 absent 1 - 1limb 2 - 2 limbs 0 10. Sensory; 0-nl 1-partial loss 2-dense loss 0 11. Best Language; 0-nl 1-mild/mod 2-sev ere 3-mute 1 12. Dysarthria; 0-nl 1-mild/mod 2-severe x-untestable 0 13. Extinction and Inattention (formerly Neglect); 0-none 1-partial 2-complete TOTAL SCORE 3 Pre-Morbid modified Anthony Scale score: unknown DIAGNOSTIC TESTING: Brain wo contrast CT 08/01/2018 13:46 Impression: 1. Interval development of small right greater than left hypodensities within the occipital lobes. Differential includes age indeterminant ischemic insult versus PRES in the appropriate clinical situation. 2. No intracranial hemorrhage or signif icant mass effect. 3. Sequelae of moderate chronic microva scular ischemia. 4. Stable moderate size region of encep halomalacia and gliosis in the left cerebellar hemisphere. Chest 1view DX 08/01/2018 13:37 Impression: 1. Emphysema, most prominent in the righ t apex. 2. Architectural distortion in the right upper lung, possibly scarring however recommend CT chest to further evaluate for spiculated lung mass. 3. Mild left base atelectasis. NH4: 59 Platelets: 106 IMPRESSION: Details are limited due to patient mental status and no family reacheable 82 yo with h/o lung cancer with metastas is to the brain s/p resection, and HTN, presents with the above complaints. He reportedly had a seizure at home with family the night before presentation, then while at his doctor's appointment he had another seizures and was sent to the ED. In the ED, he was stuporous and not following commands initially, but gradually improved to following commands. This morning, he is alert, disoriented to year and place, answers birthdate correctly, and following commands. His baseline is unknown. First-time seizures Possible hypodensity on CT Elevated ammonia Normal renal function HTN RECOMMENDATIONS: -Continue Keppra 500mg BID, switch to PO when safely taking PO -No MRI due to hardware unable to be pranav ared. -CTA brain/neck to evaluate vasculature -Daily aspirin if no contraindication -If patient does not have an established Neurologist, can follow up with Dr. Anibal Lombardo [facility] Neurology [id number] [facility] Dr. Altman [address] [place] [id number] -Follow up with Oncologist Liya Hassan MD (TC) Vascular Neurology Technical Developer of Neurology Call Center: [phone] Addendum by Liya Hassan MD on 08/02/2018 14:35 Brain/Neck CTA 08/02/2018 12:26 Impression: CTA of the neck: 1. Diffuse atherosclerotic changes. 2. A 20% short segment stenosis at the o rigin of the right internal carotid artery. 3. A 50% stenosis at the origin of the l eft internal carotid artery and a focal 65-70 % stenosis of the proximal internal carotid artery approximately 1.5 cm from the origin. 4. Codominant vertebral arteries without stenosis. 5. Extensive emphysematous changes in th e lung apices with scarring and atelectasis in the right perihilar region. Correlation with prior thoracic imaging and treatment history recommended. CTA of the [place]: Moderate atheromatous changes in bilateral vertebral arteries. A focal 65-70% stenosis of the V4 segment left vertebral artery. 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 Left occipital craniotomy and encephalomalacia in the left cerebellum. Chronic left sphenoid sinusitis. Significant intracranial atherosclerosis, posterior circulation more affected, concern for small proximal basilar dissection Possible occipital infarct -No surgical intervention or anticoagula tion indicated -Aspirin, Plavix, statin -Correction to Neurology follow informat ion: [place] [facility] follow up, have patient/family call [phone] or email [email or web address] for vascular/stroke appointment. 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 Extracted from:Title: General Admission H&P * Author: Salvador Person MD Date: 08/01/18 Impression and Plan possible seizure possible CVA hx of brain mets from primary lung cancer hypertension place in observation IV keppra given in ER, neurology cosnulted MRI Brain ordered, patient does have a metal plate, will need clearance reconicle home medications IVF with normals saline, NPO for now dvt ppx venodynes while in bed 08/07/2018 [facility] Plan of Care No Data Provided for This Section Social History Social History Date Source Social History TypeResponse Smoking Status Never smoker; Exposure to Tobacco Smoke None; Cigarette Smoking Last 365 Days Yes; Reg Smoking Cessation Counseling Yes entered on: 06/20/19 06/21/2019 [facility] Social History TypeResponse Smoking Status Never smoker, Exposure to Tobacco Smoke None, Cigarette Smoking Last 365 Days Yes, Reg Smoking Cessation Counseling Yes 05/11/2014 [facility] Family History No Data Provided for This Section Advance Directives No Data Provided for This Section Functional Status No Data Provided for This Section
--- OUTSIDE RECORDS SUMMARY | 2019-10-14 05:37 | XMS REPORT | Summary of Care ---
Author [facility] Address Unknown Phone Unavailable Encounter FELICIA Stewart(ANNEMARIE) [id number] Date(s): 06/20/19 - 06/20/19 [facility] [address] [place] [address]- [facility] [phone] Encounter Diagnosis History of lung cancer (Discharge Diagnosis) - 06/20/19 Hemoptysis (Discharge Diagnosis) - 06/20/19 Bronchiectasis (Discharge Diagnosis) - 06/20/19 Cough (Discharge Diagnosis) - 06/20/19 Discharge Disposition: Home or Self Care Attending Physician: Allyson Arnold MD Vital Signs 1 2 3 Most recent to oldest [Reference Range]: 193.04 cm (06/20/19 4:55 PM) Height 98 DegF (06/20/19 7:50 PM) 98.1 DegF (06/20/19 4:55 PM) Temperature Oral [96.4-99.1 DegF] 132/79 mmHg (06/20/19 7:50 PM) 142/94 mmHg *HI* (06/20/19 5:45 PM) 136/98 mmHg (06/20/19 4:55 PM) Blood Pressure [90-140/60-90 mmHg] 16 BRMIN (06/20/19 7:50 PM) 20 BRMIN (06/20/19 5:45 PM) 17 BRMIN (06/20/19 4:55 PM) Respiratory Rate [14-20 BRMIN] 95 bpm (06/20/19 7:50 PM) 96 bpm (06/20/19 5:45 PM) 94 bpm (06/20/19 4:55 PM) Peripheral Pulse Rate [60-100 bpm] 81.818 kg (06/20/19 4:55 PM) Weight 21.96 m2 (06/20/19 4:55 PM) Body Mass Index Problem List Condition Effective Dates Status Health Status Informan t Cancer of Resolved respiratory system(Confirmed) Cataracts(Confirmed) Resolved Craniotomy(Confirmed Resolved ) GERD - Active Gastro-esophageal reflux disease(Confirmed) Hemoptysis(Confirmed Active ) Hypertension(Confirm Active ed) Knee Resolved replacement(Confirme d) Allergies, Adverse Reactions, Alerts No Known Medication Allergies Substance Reaction Severity Status NKFA Active Medications No data available for this section Results Most recent to 1 oldest [Reference Range]: Neutrophils # 6.0 K/CMM [1.5-8.1 K/CMM] (06/20/19 5:40 PM) Lymphocytes # 1.5 K/CMM [1.0-5.5 K/CMM] (06/20/19 5:40 PM) Monocytes # [0.0-0.8 0.9 K/CMM K/CMM] *HI* (06/20/19 5:40 PM) Eosinophils # 0.2 K/CMM [0.0-0.5 K/CMM] (06/20/19 5:40 PM) Basophils # [0.0-0.2 0.1 K/CMM K/CMM] (06/20/19 5:40 PM) eGFR 111 mL/min/1.73m2 1 *NA* (06/20/19 5:40 PM) A/G Ratio [0.7-1.6] 0.5 *LOW* (06/20/19 5:40 PM) Albumin Lvl [3.5-5.0 2.8 g/dL g/dL] *LOW* (06/20/19 5:40 PM) Alk Phos [39-136 81 unit/L unit/L] (06/20/19 5:40 PM) ALT [0-65 unit/L] 10 unit/L (06/20/19 5:40 PM) AGAP [10.0-20.0 7.6 mEq/L mEq/L] *LOW* (06/20/19 5:40 PM) AST [0-37 unit/L] 16 unit/L (06/20/19 5:40 PM) B/C Ratio [6-25] 14 (06/20/19 5:40 PM) Basophils [0.0-1.0 1.0 % %] (06/20/19 5:40 PM) BUN [7-22 mg/dL] 8 mg/dL (06/20/19 5:40 PM) Calcium Lvl 9.4 mg/dL [8.5-10.5 mg/dL] (06/20/19 5:40 PM) Chloride Lvl [95-109 103 mEq/L mEq/L] (06/20/19 5:40 PM) CO2 [24-32 mEq/L] 33 mEq/L *HI* (06/20/19 5:40 PM) Creatinine Lvl 0.58 mg/dL [0.50-1.40 mg/dL] (06/20/19 5:40 PM) Eosinophils [0.0-4.0 2.4 % %] (06/20/19 5:40 PM) Globulin [2.7-4.2 5.8 g/dL g/dL] *HI* (06/20/19 5:40 PM) Glucose Lvl [70-99 85 mg/dL mg/dL] (06/20/19 5:40 PM) Hct [42.0-54.0 %] 35.5 % *LOW* (06/20/19 5:40 PM) Hgb [14.0-18.0 g/dL] 11.6 g/dL *LOW* (06/20/19 5:40 PM) INR [0.85-1.17] 1.08 (06/20/19 5:40 PM) Potassium Lvl 3.6 mEq/L [3.5-5.1 mEq/L] (06/20/19 5:40 PM) Lymphocytes 17.1 % [20.0-40.0 %] *LOW* (06/20/19 5:40 PM) MCH [27.0-31.0 pg] 29.1 pg (06/20/19 5:40 PM) MCHC [32.0-36.0 32.8 g/dL g/dL] (06/20/19 5:40 PM) MCV [80.0-94.0 fL] 88.9 fL (06/20/19 5:40 PM) Monocytes [2.0-12.0 10.1 % %] (06/20/19 5:40 PM) MPV [7.4-10.4 fL] 8.4 fL (06/20/19 5:40 PM) Sodium Lvl [135-145 140 mEq/L mEq/L] (06/20/19 5:40 PM) Platelet [133-450 255 K/CMM K/CMM] (06/20/19 5:40 PM) Segs [45.0-75.0 %] 69.4 % (06/20/19 5:40 PM) Total Protein 8.6 g/dL [6.4-8.4 g/dL] *HI* (06/20/19 5:40 PM) PT [12.0-14.7 14.0 seconds seconds] (06/20/19 5:40 PM) RBC [4.70-6.10 4.00 M/CMM M/CMM] *LOW* (06/20/19 5:40 PM) RDW [11.5-14.5 %] 15.4 % *HI* (06/20/19 5:40 PM) Bili Total [0.2-1.3 0.7 mg/dL mg/dL] (06/20/19 5:40 PM) WBC [3.7-10.4 K/CMM] 8.7 K/CMM (06/20/19 5:40 PM) 1Result Comment: The eGFR is calculated using the [...] from the National Kid[employer] Disease Education Program ( NKDEP) which additionally recommends that when the eGFR is used in patients with extremes of body mass index for purposes of drug dosing, the eGFR should be mul tiplied by the estimated BMI. Immunizations Not Given Vaccine Date Status Refusal Reason pneumococcal 13-valent vaccine 08/07/18 Not Given Patient Refuses Procedures Procedure Date Related Diagnosis Body Site Status Bronchoscopy 04/30/12 Completed Cataract surgery 03/28/12 Completed Craniotomy 04/27/07 Completed Knee replacement Completed Social History Social History Type Response Smoking Status Never smoker; Exposure to T obacco Smoke None; Cigarette Smoking Last 365 Days Yes; Reg Smoking Cessation Utility Locator ing Yes entered on: 06/20/19 Assessment and Plan No data available for this section
--- OUTSIDE RECORDS SUMMARY | 2019-10-14 05:38 | XMS REPORT | Summary of Care ---
Author [facility] Address Unknown Phone Unavailable Encounter FELICIA Stewart(ANNEMARIE) [id number] Date(s): 08/01/18 - 08/07/18 [facility] [address] [place] [address]- [facility] [phone] Discharge Disposition: Group Home Facility Attending Physician: Salvador Person MD Admitting Physician: Salvador Person MD Vital Signs 1 2 3 Most recent to oldest [Reference Range]: 193.04 cm (08/01/18 12:10 PM) Height 98.1 DegF (08/07/18 11:34 AM) 98.2 DegF (08/07/18 7:16 AM) 98.2 DegF (08/07/18 3:42 AM) Temperature Oral [96.4-99.1 DegF] 123/77 mmHg (08/07/18 11:34 AM) 112/61 mmHg (08/07/18 7:16 AM) 113/65 mmHg (08/07/18 3:42 AM) Blood Pressure [90-140/60-90 mmHg] 16 BRMIN (08/07/18 11:34 AM) 16 BRMIN (08/07/18 7:16 AM) 17 BRMIN (08/07/18 3:42 AM) Respiratory Rate [14-20 BRMIN] 66 bpm (08/07/18 11:34 AM) 65 bpm (08/07/18 7:16 AM) 81 bpm (08/07/18 3:42 AM) Peripheral Pulse Rate [60-100 bpm] 122 kg (08/01/18 11:34 PM) 122.727 kg (08/01/18 12:10 PM) Weight 32.93 m2 (08/01/18 12:10 PM) Body Mass Index Problem List Condition Effective Dates Status Health Status Informan t Cancer of Resolved respiratory system(Confirmed) Cataracts(Confirmed) Resolved Craniotomy(Confirmed Resolved ) GERD - Active Gastro-esophageal reflux disease(Confirmed) Hemoptysis(Confirmed Active ) Hypertension(Confirm Active ed) Knee Resolved replacement(Confirme d) Allergies, Adverse Reactions, Alerts Substance Reaction Severity Status NKFA Active NKDA Active Medications acetaminophen 650 mg, 2 tab, Route: PO, Drug form: TAB, Q4H, Dosing Weight 122, kg, PRN For Te mp > 100.4 F, Start date: 08/06/18 8:32:00 CDT, Duration: 30 day, Stop date: 09/05/18 8:31:00 CDT Notes: Do not exceed 4 gm/day. (Same as: Tylenol) Start Date: 08/06/18 Stop Date: 08/07/18 Status: Discontinued aspirin 300 mg, 1 supp, Route: GA, Drug form: SUPP, ONCE, Dosing Weight 122.727, kg, Sta rt date: 08/01/18 18:14:00 CDT, Stop date: 08/01/18 18:14:00 CDT Notes: Refrigerate. Start Date: 08/01/18 Stop Date: 08/02/18 Status: Completed aspirin 81 mg tablet, enteric coated 81 mg, 1 tab, Route: PO, Drug form: ECTAB, Daily, Dosing Weight 122, kg, Start d ate: 08/03/18 9:00:00 CDT, Duration: 30 day, Stop date: 09/01/18 9:00:00 CDT Notes: Do not crush or chew.(Same As: Ecotrin) Start Date: 08/03/18 Stop Date: 08/07/18 Status: Discontinued aspirin 81 mg tablet, enteric coated 81 mg = 1 tab, PO, Daily, # 30 tab, 2 Refill(s), Pharmacy: [id number] Start Date: 08/06/18 Stop Date: 11/04/18 Status: Ordered atorvastatin 40 mg, 1 tab, Route: PO, Drug form: TAB, Bedtime, Dosing Weight 122, kg, Start d ate: 08/02/18 21:00:00 CDT, Duration: 30 day, Stop date: 08/31/18 21:00:00 CDT Notes: (Same as: Lipitor) Start Date: 08/02/18 Stop Date: 08/07/18 Status: Discontinued atorvastatin 40 mg oral tablet 40 mg = 1 tab, PO, Bedtime, # 30 tab, 1 Refill(s), Pharmacy: [facility] [id number] Start Date: 08/06/18 Stop Date: 10/05/18 Status: Ordered azithromycin 500 mg oral tablet 500 mg = 1 tab, PO, Daily, X 7 day, # 7 tab, 0 Refill(s), Pharmacy: [place] [id number] Start Date: 08/09/18 Stop Date: 08/16/18 Status: Ordered azithromycin 500 mg oral tablet 500 mg = 1 tab, PO, Daily, X 7 day, # 7 tab, 0 Refill(s), Pharmacy: [place] [id number] Start Date: 08/06/18 Stop Date: 08/07/18 Status: Discontinued cefdinir 300 mg oral capsule 300 mg = 1 cap, PO, Q12H, X 7 day, # 14 cap, 0 Refill(s), Pharmacy: [facility] Start Date: 08/06/18 Stop Date: 08/07/18 Status: Discontinued cefdinir 300 mg oral capsule 300 mg = 1 cap, PO, Q12H, X 7 day, # 14 cap, 0 Refill(s), Pharmacy: [place] [id number] Start Date: 08/09/18 Stop Date: 08/16/18 Status: Ordered clopidogrel 75 mg oral tablet 75 mg = 1 tab, PO, Daily, # 30 tab, 1 Refill(s), Pharmacy: [facility] 271 Start Date: 08/06/18 Stop Date: 10/05/18 Status: Ordered D5NS 1,000 mL 1,000 mL, Rate: 100 ml/hr, Infuse over: 10 hr, Route: IV, Dosing Weight 122 kg, Total Volume: 1,000, Start date: 08/02/18 5:02:00 CDT, Duration: 30 day, Stop da te: 09/01/18 5:01:00 CDT, 2.57, m2 Start Date: 08/02/18 Stop Date: 08/04/18 Status: Discontinued Dextrose 50% Syringe 25 gm, 50 mL, Route: IVP, Drug Form: INJ, Dosing Weight 122.727, kg, PRN, PRN Bl ood Glucose Results, Start date: 08/01/18 18:08:00 CDT, Duration: 30 day, Stop d ate: 08/31/18 18:07:00 CDT Start Date: 08/01/18 Stop Date: 08/07/18 Status: Discontinued Dextrose 50% Syringe 12.5 gm, 25 mL, Route: IVP, Drug Form: INJ, Dosing Weight 122.727, kg, PRN, PRN Blood Glucose Results, Start date: 08/01/18 18:08:00 CDT, Duration: 30 day, Stop date: 08/31/18 18:07:00 CDT Start Date: 08/01/18 Stop Date: 08/07/18 Status: Discontinued doxycycline hyclate 150 mg oral tablet 150 mg = 1 tab, PO, BID, X 7 day, # 14 tab, 0 Refill(s), Pharmacy: [id number] Start Date: 08/09/18 Stop Date: 08/16/18 Status: Ordered glucagon 1 mg, Route: IM, Drug form: PDR/INJ, PRN, Dosing Weight 122.727, kg, PRN Blood G lucose Results, Start date: 08/01/18 18:08:00 CDT, Duration: 30 day, Stop date: 08/31/18 18:07:00 CDT Start Date: 08/01/18 Stop Date: 08/07/18 Status: Discontinued Haldol 2.5 mg, 0.5 mL, Route: IM, Drug form: INJ, ONCE, Dosing Weight 122, kg, PRN Agit ation, Priority: NOW, Start date: 08/02/18 22:47:00 CDT Notes: (Same as: Haldol) Start Date: 08/02/18 Stop Date: 08/02/18 Status: Completed Keppra 1,000 mg, 100 mL, Route: IVPB, Drug form: INJ, Q12H, Dosing Weight 122, kg, Star t date: 08/05/18 20:55:00 CDT, Duration: 30 day, Stop date: 09/04/18 9:00:00 CDT Start Date: 08/05/18 Stop Date: 08/07/18 Status: Discontinued Keppra + Sodium Chloride 0.9% IV 100 mL 1,500 mg, Route: IV, ONCE, Dosing Weight 122.727, kg, Start date: 08/01/18 14:08 :00 CDT, Stop date: 08/01/18 14:08:00 CDT Notes: Same as KeppraMix with 100 mL NS, LR or D5W MEDICATION WASTE Prod uct Size: 500 mgProduct Wasted: ___ mg Start Date: 08/01/18 Stop Date: 08/01/18 Status: Completed Keppra 1000 mg oral tablet 1,000 mg = 1 tab, PO, BID, # 60 tab, 1 Refill(s), Pharmacy: [facility] [phone] Start Date: 08/06/18 Stop Date: 10/05/18 Status: Ordered Keppra 1000 mg oral tablet 1,000 mg, 2 tab, Route: PO, Drug form: TAB, Q12H, Dosing Weight 122, kg, Start d ate: 08/03/18 21:00:00 CDT, Duration: 30 day, Stop date: 09/02/18 9:00:00 CDT Notes: (Same as:Keppra) Start Date: 08/03/18 Stop Date: 08/05/18 Status: Discontinued Lasix 40 mg, 4 mL, Route: IVP, Drug form: INJ, ONCE, Dosing Weight 122, kg, Start date : 08/04/18 10:00:00 CDT, Stop date: 08/04/18 10:00:00 CDT Notes: (Same as: Lasix) MEDICATION WASTE Product Size: 40 mgProduct Was jj: ___ mg Start Date: 08/04/18 Stop Date: 08/04/18 Status: Completed levETIRAcetam 1,000 mg, 100 mL, Route: IVPB, Drug form: INJ, Q12H, Dosing Weight 122, kg, Star t date: 08/02/18 9:00:00 CDT, Duration: 30 day, Stop date: 08/31/18 21:00:00 CDT Start Date: 08/02/18 Stop Date: 08/03/18 Status: Discontinued levofloxacin 750 mg, 150 mL, Route: IVPB, Drug form: SOLN, [id number], Dosing Weight 122, kg, Cr Cl > 49 ml/min, Start date: 08/06/18 9:00:00 CDT, Duration: 7 day, Stop date: 08/12/18 9:00:00 CDT, ABX Indication: Pneumonia Notes: (Same as:Levaquin) Start Date: 08/06/18 Stop Date: 08/06/18 Status: Discontinued LORazepam 1 mg, 0.5 mL, Route: IVP, Drug form: INJ, ONCE, Dosing Weight 122.727, kg, Prior ity: STAT, Start date: 08/01/18 12:26:00 CDT, Stop date: 08/01/18 12:26:00 CDT Notes: (Same as: Ativan) Start Date: 08/01/18 Stop Date: 08/01/18 Status: Completed normal saline 0.9% IV 1,000 mL 1,000 mL, Rate: 100 ml/hr, Infuse over: 10 hr, Route: IV, Dosing Weight 122 kg, Total Volume: 1,000, Start date: 08/06/18 11:36:00 CDT, Duration: 30 day, Stop d ate: 09/05/18 11:35:00 CDT, 2.57, m2 Start Date: 08/06/18 Stop Date: 08/07/18 Status: Discontinued normal saline 0.9% IV 1,000 mL 1,000 mL, Rate: 75 ml/hr, Infuse over: 13.3 hr, Route: IV, Dosing Weight 122.727 kg, Total Volume: 1,000, Start date: 08/01/18 18:14:00 CDT, Duration: 30 day, S top date: 08/31/18 18:13:00 CDT, 2.58, m2 Start Date: 08/01/18 Stop Date: 08/04/18 Status: Discontinued Plavix 75 mg, 1 tab, Route: PO, Drug form: TAB, Daily, Dosing Weight 122, kg, Start key e: 08/03/18 9:00:00 CDT, Duration: 30 day, Stop date: 09/01/18 9:00:00 CDT Notes: (Same As: Plavix) Start Date: 08/03/18 Stop Date: 08/07/18 Status: Discontinued Plavix 75 mg, 1 tab, Route: PO, Drug form: TAB, ONCE, Dosing Weight 122, kg, Priority: NOW, Start date: 08/02/18 14:17:00 CDT, Stop date: 08/02/18 14:17:00 CDT Notes: (Same As: Plavix) Start Date: 08/02/18 Stop Date: 08/02/18 Status: Completed Saline Flush 0.9% 10 mL, Route: IVP, Drug Form: INJ, Dosing Weight 122.727, kg, PRN, PRN Line Flus h, Start date: 08/01/18 12:26:00 CDT, Duration: 30 day, Stop date: 08/31/18 12:2 5:00 CDT Notes: (Same as: BD Posiflush) Start Date: 08/01/18 Stop Date: 08/07/18 Status: Discontinued Saline Flush 0.9% 10 ml, Route: IVP, Drug Form: INJ, Dosing Weight 122, kg, PRN, PRN Line Flush, S tart date: 08/03/18 10:46:00 CDT, Duration: 30 day, Stop date: 09/02/18 10:45:00 CDT Notes: (Same as: BD Posiflush) Start Date: 08/03/18 Stop Date: 08/07/18 Status: Discontinued Saline Flush 0.9% 10 ml, Route: IVP, Drug Form: INJ, Dosing Weight 122, kg, Q12H, Start date: 07/20 10/07 21:00:00 CDT, Duration: 30 day, Stop date: 09/02/18 9:00:00 CDT Notes: (Same as: BD Posiflush) Start Date: 08/03/18 Stop Date: 08/07/18 Status: Discontinued Sodium Chloride 0.9% (Bolus) IV 1,000 mL, 1,000 ml/hr, Infuse Over: 1 hr, Route: IV, 1,000, Drug form: INJ, ONCE , Priority: STAT, Dosing Weight 122.727 kg, Start date: 08/01/18 12:26:00 CDT, S top date: 08/01/18 12:26:00 CDT Start Date: 08/01/18 Stop Date: 08/01/18 Status: Completed trazodone 100 mg, 1 tab, Route: PO, Drug form: TAB, ONCE, Dosing Weight 122, kg, PRN Pain Score 4-6, Priority: NOW, Start date: 08/02/18 21:12:00 CDT Notes: (Same As: Ivonne) Start Date: 08/02/18 Stop Date: 08/02/18 Status: Completed vancomycin + Sodium Chloride 0.9% IV 250 mL 1,500 mg, Route: IVPB, [id number], Start date: 08/07/18 4:00:00 CDT, Duration: 5 da y, Stop date: 08/11/18 16:00:00 CDT, ABX Indication: Pneumonia Notes: TIME CRITICAL MEDICATION(Same As: Vancocin)Infusion rate< 1000 mg: infuse over 1 [id number] - 1500 mg: infuse over 1.5 [id number] - 2000 mg: infuse over 2 hours> 2001 mg: infuse over 2.5 hoursFor adult patients only: Round to nearest 250 mg per Medical Staff approval MEDICATION WASTE Product Size: 1000 mgProduct Wasted: ___ mg Start Date: 08/07/18 Stop Date: 08/07/18 Status: Discontinued vancomycin 1 g/150 mL-NaCl 0.9% intravenous solution 1,500 mg, IV, Q12H, # 2 ea, 0 Refill(s) Start Date: 08/08/18 Stop Date: 08/09/18 Status: Ordered Vancomycin Pharmacy Dosing 1 ea, Route: MISC, Drug form: INJ, ONCALL, Dosing Weight 122, kg, Start date: 14:00:00 CDT, Duration: 5 day, Stop date: 08/11/18 13:59:00 CDT, Pharmacy to dose, ABX Indication: Other (specify in Comments) Notes: TIME CRITICAL MEDICATIONMix with NS 250ml ADVInfusion rate< 1000 mg: infuse over 1 [id number] - 1500 mg: infuse over 1.5 [id number] - 2000 mg: infuse over 2 hours> 2001 mg: infuse over 2.5 hoursFor adult patients only: Round to nearest 250 mg per Medical Staff approval Start Date: 08/06/18 Stop Date: 08/07/18 Status: Discontinued Vancomycin Pharmacy Dosing + Sodium Chloride 0.9% IV 500 mL 2,500 mg, Route: IVPB, ONCE, Start date: 08/06/18 16:00:00 CDT, Stop date: 08/06 16:00:00 CDT, ABX Indication: Other (specify in Comments) Notes: TIME CRITICAL MEDICATION(Same As: Vancocin)Infusion rate< 1000 mg: infuse over 1 [id number] - 1500 mg: infuse over 1.5 [id number] - 2000 mg: infuse over 2 hours> 2001 mg: infuse over 2.5 hoursFor adult patients only: Round to nearest 250 mg per Medical Staff approval MEDICATION WASTE Product Size: 1000 mgProduct Wasted: ___ mg Start Date: 08/06/18 Stop Date: 08/06/18 Status: Completed Zosyn + Sodium Chloride 0.9% IV 100 mL 3.375 gm, Route: IVPB, [id number], Dosing Weight 122, kg, CrCl >= 20 ml/min infuse over 4 hours, Start date: 08/06/18 17:01:00 CDT, Duration: 5 day, Stop date: 08/11/18 9:01:00 CDT, ABX Indication: Pneumonia Notes: (Same as: Zosyn)Dosing based on Piperacillin component MEDICATION WA EKATERINA Product Size: 3375 mgProduct Wasted: ___ mg Start Date: 08/06/18 Stop Date: 08/06/18 Status: Discontinued Zosyn + Sodium Chloride 0.9% IV 100 mL 3.375 gm, Route: IVPB, [id number], Dosing Weight 122, kg, CrCl >= 20 ml/min infuse over 4 hours, Start date: 08/06/18 20:00:00 CDT, Duration: 5 day, Stop date: 08/11/18 12:00:00 CDT, ABX Indication: Pneumonia Notes: (Same as: Zosyn)Dosing based on Piperacillin component MEDICATION WA EKATERINA Product Size: 3375 mgProduct Wasted: ___ mg Start Date: 08/06/18 Stop Date: 08/07/18 Status: Discontinued Zosyn 3.375 g intravenous injection 3.375 gm, IV, Q8H, X 1 day, # 3 ea, 0 Refill(s), Pharmacy: [id number] Start Date: 08/08/18 Stop Date: 08/09/18 Status: Completed Results ELECTROLYTES 1 2 3 Most recent to oldest [Reference Range]: 146 mEq/L *HI* (08/07/18 9:46 AM) 139 mEq/L (08/06/18 4:04 AM) 138 mEq/L (08/04/18 5:34 AM) Sodium Lvl [135-145 mEq/L] 3.8 mEq/L (08/07/18 9:46 AM) 4.0 mEq/L (08/06/18 4:04 AM) 3.9 mEq/L (08/04/18 5:34 AM) Potassium Lvl [3.5-5.1 mEq/L] 115 mEq/L *HI* (08/07/18 9:46 AM) 106 mEq/L (08/06/18 4:04 AM) 105 mEq/L (08/04/18 5:34 AM) Chloride Lvl [95-109 mEq/L] 25 mEq/L (08/07/18 9:46 AM) 24 mEq/L (08/06/18 4:04 AM) 27 mEq/L (08/04/18 5:34 AM) CO2 [24-32 mEq/L] 9.8 mEq/L *LOW* (08/07/18 9:46 AM) 13.0 mEq/L (08/06/18 4:04 AM) 9.9 mEq/L *LOW* (08/04/18 5:34 AM) AGAP [10.0-20.0 mEq/L] CHEM PANEL 1 2 3 Most recent to oldest [Reference Range]: 1.00 mg/dL (08/07/18 9:46 AM) 1.44 mg/dL *HI* (08/06/18 4:04 AM) 0.86 mg/dL (08/04/18 5:34 AM) Creatinine Lvl [0.50-1.40 mg/dL] 82 mL/min/1.73m2 1 *NA* (08/07/18 9:46 AM) 53 mL/min/1.73m2 2 *NA* (08/06/18 4:04 AM) 94 mL/min/1.73m2 3 *NA* (08/04/18 5:34 AM) eGFR 43 mg/dL *HI* (08/07/18 9:46 AM) 42 mg/dL *HI* (08/06/18 4:04 AM) 9 mg/dL (08/04/18 5:34 AM) BUN [7-22 mg/dL] 43 *HI* (08/07/18 9:46 AM) 29 *HI* (08/06/18 4:04 AM) 10 (08/04/18 5:34 AM) B/C Ratio [6-25] 81 mg/dL (08/07/18 9:46 AM) 110 mg/dL *HI* (08/06/18 4:04 AM) 92 mg/dL (08/04/18 5:34 AM) Glucose Lvl [70-99 mg/dL] 6.9 g/dL (08/07/18 9:46 AM) 7.6 g/dL (08/06/18 4:04 AM) 8.0 g/dL (08/04/18 5:34 AM) Total Protein [6.4-8.4 g/dL] 2.2 g/dL *LOW* (08/07/18 9:46 AM) 2.6 g/dL *LOW* (08/06/18 4:04 AM) 3.0 g/dL *LOW* (08/04/18 5:34 AM) Albumin Lvl [3.5-5.0 g/dL] 4.7 g/dL *HI* (08/07/18 9:46 AM) 5.0 g/dL *HI* (08/06/18 4:04 AM) 5.0 g/dL *HI* (08/04/18 5:34 AM) Globulin [2.7-4.2 g/dL] 0.5 *LOW* (08/07/18 9:46 AM) 0.5 *LOW* (08/06/18 4:04 AM) 0.6 *LOW* (08/04/18 5:34 AM) A/G Ratio [0.7-1.6] 8.6 mg/dL (08/07/18 9:46 AM) 8.8 mg/dL (08/06/18 4:04 AM) 8.5 mg/dL (08/04/18 5:34 AM) Calcium Lvl [8.5-10.5 mg/dL] 3.0 mg/dL (08/06/18 4:04 AM) 3.5 mg/dL (08/04/18 5:34 AM) 3.7 mg/dL (08/03/18 3:26 AM) Phosphorus [2.5-4.5 mg/dL] 2.1 mg/dL (08/06/18 4:04 AM) 1.9 mg/dL (08/04/18 5:34 AM) 1.9 mg/dL (08/03/18 3:26 AM) Magnesium Lvl [1.8-2.4 mg/dL] 37 unit/L (08/07/18 9:46 AM) 13 unit/L (08/06/18 4:04 AM) 21 unit/L (08/04/18 5:34 AM) ALT [0-65 unit/L] 75 unit/L *HI* (08/07/18 9:46 AM) 34 unit/L (08/06/18 4:04 AM) 14 unit/L (08/04/18 5:34 AM) AST [0-37 unit/L] 68 unit/L (08/07/18 9:46 AM) 76 unit/L (08/06/18 4:04 AM) 88 unit/L (08/04/18 5:34 AM) Alk Phos [39-136 unit/L] 2.3 mg/dL *HI* (08/07/18 9:46 AM) 2.3 mg/dL *HI* (08/06/18 4:04 AM) 0.9 mg/dL (08/04/18 5:34 AM) Bili Total [0.2-1.3 mg/dL] 59.0 uMol/L *HI* (08/01/18 1:14 PM) Ammonia [<=45.0 uMol/L] 1.5 mMol/L (08/06/18 11:27 PM) 2.9 mMol/L *HI* (08/06/18 7:09 PM) 3.3 mMol/L *HI* (08/06/18 4:47 PM) Lactic Acid Lvl [0.5-2.2 mMol/L] 43.12 ng/mL 4 *CRIT* (08/06/18 10:19 AM) Procalcitonin Lvl [0.00-0.10 ng/mL] 1Result Comment: The eGFR is calculated using [...] be mul tiplied by the estimated BMI. 2Result Comment: The eGFR is calculated using the [...] be mul tiplied by the estimated BMI. 3Result Comment: The eGFR is calculated using the [...] be mul tiplied by the estimated BMI. 4Result Comment: Critical Result(s) called to rickey ott at 08/06/2018 13:49 by kr. Read back OK. CARDIAC ENZYMES 1 2 3 Most recent to oldest [Reference Range]: 161 unit/L (08/01/18 1:14 PM) Total CK [12-191 unit/L] <0.02 ng/mL (08/01/18 1:14 PM) Troponin-I [0.00-0.40 ng/mL] LIPIDS 1 2 3 Most recent to oldest [Reference Range]: 2.90 *LOW* (08/03/18 3:26 AM) CHD Risk [4.00-7.30] 113 mg/dL (08/03/18 3:26 AM) Chol [<=199 mg/dL] 51 mg/dL (08/03/18 3:26 AM) Trig [<=149 mg/dL] 39 mg/dL *LOW* (08/03/18 3:26 AM) HDL [>=61 mg/dL] 64 mg/dL (08/03/18 3:26 AM) LDL (Calculated) [<=99 mg/dL] 10 *NA* (08/03/18 3:26 AM) VLDL SPECIAL CHEMISTRY 1 2 3 Most recent to oldest [Reference Range]: 5.2 % (08/03/18 3:26 AM) Hgb A1C [<=5.6 %] DRUG SCREEN 1 2 3 Most recent to oldest [Reference Range]: Negative *NA* (08/01/18 4:20 PM) U Amph Scr [Negative] Negative *NA* (08/01/18 4:20 PM) U Renita Scr [Negative] Negative *NA* (08/01/18 4:20 PM) U Benzodiaz Scr [Negative] Negative *NA* (08/01/18 4:20 PM) U Cannab Scr [Negative] Negative *NA* (08/01/18 4:20 PM) U Cocaine Scr [Negative] Negative *NA* (08/01/18 4:20 PM) U Opiate Scr [Negative] Negative *NA* (08/01/18 4:20 PM) U Phencyclidine Scr [Negative] See Note *NA* (08/01/18 4:20 PM) UDS Note TOXICOLOGY 1 2 3 Most recent to oldest [Reference Range]: <0.003 % (08/01/18 1:14 PM) Etoh (%) <3.0 mg/dL (08/01/18 1:14 PM) Ethanol Lvl URINE AND STOOL 1 2 3 Most recent to oldest [Reference Range]: Slight *ABN* (08/03/18 1:02 PM) Clear (08/01/18 4:20 PM) UA Turbidity [Clear] Yellow *NA* (08/03/18 1:02 PM) UA Color [Yellow] STRAW *NA* (08/01/18 4:20 PM) UA Color 8.0 (08/03/18 1:02 PM) 8.0 (08/01/18 4:20 PM) UA pH [5.0-8.0] 1.009 (08/03/18 1:02 PM) 1.008 (08/01/18 4:20 PM) UA Spec Grav [<=1.030] Negative *NA* (08/03/18 1:02 PM) Negative *NA* (08/01/18 4:20 PM) UA Glucose [Negative] Negative (08/03/18 1:02 PM) Small *ABN* (08/01/18 4:20 PM) UA Blood [Negative] Negative *NA* (08/03/18 1:02 PM) Negative *NA* (08/01/18 4:20 PM) UA Ketones [Negative] Negative (08/03/18 1:02 PM) Negative (08/01/18 4:20 PM) UA Protein [Negative] <=1.0 mg/dL 1 (08/03/18 1:02 PM) <=1.0 mg/dL *NA* (08/01/18 4:20 PM) UA Urobilinogen [0.1-1.0 mg/dL] Negative *NA* (08/03/18 1:02 PM) Negative *NA* (08/01/18 4:20 PM) UA Bili [Negative] Negative (08/03/18 1:02 PM) Negative (08/01/18 4:20 PM) UA Leuk Est [Negative] Negative (08/03/18 1:02 PM) Negative (08/01/18 4:20 PM) UA Nitrite [Negative] 4 /HPF (08/03/18 1:02 PM) 1 /HPF (08/01/18 4:20 PM) UA WBC [0-5 /HPF] <1 /HPF (08/03/18 1:02 PM) <1 /HPF (08/01/18 4:20 PM) UA RBC [0-2 /HPF] Occasional /HPF *NA* (08/03/18 1:02 PM) Occasional /HPF *NA* (08/01/18 4:20 PM) UA Bacteria [None Seen /HPF] None Seen (08/03/18 1:02 PM) None Seen (08/01/18 4:20 PM) UA Sq Epi [Few] 1 /LPF (08/01/18 4:20 PM) UA Hyal Cast [0-2 /LPF] Few /LPF *NA* (08/01/18 4:20 PM) UA Mucus [None Seen /LPF] 1Result Comment: performed on multistix by nm HEMATOLOGY 1 2 3 Most recent to oldest [Reference Range]: 17.6 K/CMM *HI* (08/07/18 9:46 AM) 15.2 K/CMM *HI* (08/06/18 4:04 AM) 8.3 K/CMM (08/04/18 5:34 AM) WBC [3.7-10.4 K/CMM] 4.05 M/CMM *LOW* (08/07/18 9:46 AM) 4.86 M/CMM (08/06/18 4:04 AM) 4.35 M/CMM *LOW* (08/04/18 5:34 AM) RBC [4.70-6.10 M/CMM] 12.5 g/dL *LOW* (08/07/18 9:46 AM) 15.0 g/dL (08/06/18 4:04 AM) 13.6 g/dL *LOW* (08/04/18 5:34 AM) Hgb [14.0-18.0 g/dL] 37.4 % *LOW* (08/07/18 9:46 AM) 45.3 % (08/06/18 4:04 AM) 39.9 % *LOW* (08/04/18 5:34 AM) Hct [42.0-54.0 %] 92.3 fL (08/07/18 9:46 AM) 93.3 fL (08/06/18 4:04 AM) 91.8 fL (08/04/18 5:34 AM) MCV [80.0-94.0 fL] 30.8 pg (08/07/18 9:46 AM) 30.8 pg (08/06/18 4:04 AM) 31.3 pg *HI* (08/04/18 5:34 AM) MCH [27.0-31.0 pg] 33.4 g/dL (08/07/18 9:46 AM) 33.0 g/dL (08/06/18 4:04 AM) 34.1 g/dL (08/04/18 5:34 AM) MCHC [32.0-36.0 g/dL] 13.8 % (08/07/18 9:46 AM) 14.1 % (08/06/18 4:04 AM) 13.7 % (08/04/18 5:34 AM) RDW [11.5-14.5 %] 10.2 fL (08/07/18 9:46 AM) 10.0 fL (08/06/18 4:04 AM) 9.9 fL (08/04/18 5:34 AM) MPV [7.4-10.4 fL] 122 K/CMM *LOW* (08/07/18 9:46 AM) 137 K/CMM (08/06/18 4:04 AM) 133 K/CMM (08/04/18 5:34 AM) Platelet [133-450 K/CMM] 68.0 % (08/07/18 9:46 AM) 55.0 % (08/06/18 4:04 AM) 70.1 % (08/04/18 5:34 AM) Segs [45.0-75.0 %] 11.0 % (08/07/18 9:46 AM) 25.0 % *HI* (08/06/18 4:04 AM) Bands [0.0-11.0 %] 8.0 % *LOW* (08/07/18 9:46 AM) 8.0 % *LOW* (08/06/18 4:04 AM) 13.5 % *LOW* (08/04/18 5:34 AM) Lymphocytes [20.0-40.0 %] 0.0 % (08/07/18 9:46 AM) 0.0 % (08/06/18 4:04 AM) Atypical Lymphs [<=0.0 %] 13.0 % *HI* (08/07/18 9:46 AM) 8.0 % (08/06/18 4:04 AM) 13.5 % *HI* (08/04/18 5:34 AM) Monocytes [2.0-12.0 %] 2.1 % (08/04/18 5:34 AM) 4.1 % *HI* (08/03/18 3:26 AM) 1.4 % (08/01/18 1:14 PM) Eosinophils [0.0-4.0 %] 0.8 % (08/04/18 5:34 AM) 0.9 % (08/03/18 3:26 AM) 0.8 % (08/01/18 1:14 PM) Basophils [0.0-1.0 %] 1.0 % (08/06/18 4:04 AM) Metamyelocytes [0.0-1.0 %] 3.0 % *HI* (08/06/18 4:04 AM) Myelocytes [<=0.0 %] 13.9 K/CMM *HI* (08/07/18 9:46 AM) 12.2 K/CMM *HI* (08/06/18 4:04 AM) 5.8 K/CMM (08/04/18 5:34 AM) Neutrophils # [1.5-8.1 K/CMM] 1.4 K/CMM (08/07/18 9:46 AM) 1.2 K/CMM (08/06/18 4:04 AM) 1.1 K/CMM (08/04/18 5:34 AM) Lymphocytes # [1.0-5.5 K/CMM] 2.3 K/CMM *HI* (08/07/18 9:46 AM) 1.2 K/CMM *HI* (08/06/18 4:04 AM) 1.1 K/CMM *HI* (08/04/18 5:34 AM) Monocytes # [0.0-0.8 K/CMM] 0.2 K/CMM (08/04/18 5:34 AM) 0.3 K/CMM (08/03/18 3:26 AM) 0.1 K/CMM (08/01/18 1:14 PM) Eosinophils # [0.0-0.5 K/CMM] 0.1 K/CMM (08/04/18 5:34 AM) 0.1 K/CMM (08/03/18 3:26 AM) 0.1 K/CMM (08/01/18 1:14 PM) Basophils # [0.0-0.2 K/CMM] Normal (08/07/18 9:46 AM) Normal (08/06/18 4:04 AM) RBC Morph 1+ (08/07/18 9:46 AM) Hypochrom [None Seen] Normal (08/07/18 9:46 AM) Normal (08/06/18 4:04 AM) Plt Morph 13.4 seconds (08/01/18 1:14 PM) PT [12.0-14.7 seconds] 1.04 (08/01/18 1:14 PM) INR [0.85-1.17] 35.2 seconds (08/01/18 1:14 PM) PTT [22.9-35.8 seconds] MOLECULAR DIAGNOSTIC 1 2 3 Most recent to oldest [Reference Range]: Not Detected (08/06/18 10:10 AM) S. aureus [Not Detected] Not Detected (08/06/18 10:10 AM) S. epidermidis [Not Detected] Not Detected (08/06/18 10:10 AM) S. lugdunensis [Not Detected] Not Detected (08/06/18 10:10 AM) S. anginosus grp [Not Detected] Not Detected (08/06/18 10:10 AM) S. agalactiae [Not Detected] Not Detected (08/06/18 10:10 AM) S. pneumoniae [Not Detected] Not Detected (08/06/18 10:10 AM) S. pyogenes [Not Detected] Not Detected (08/06/18 10:10 AM) E. faecalis [Not Detected] Not Detected (08/06/18 10:10 AM) E. faecium [Not Detected] Detected *ABN* (08/06/18 10:10 AM) Staphylococcus spp. [Not Detected] Not Detected (08/06/18 10:10 AM) Streptococcus spp. [Not Detected] Not Detected (08/06/18 10:10 AM) Listeria spp. [Not Detected] Not Detected (08/06/18 10:10 AM) mecA Methicillin Resistance [Not Detected] Not Detected (08/06/18 10:10 AM) Joanna Vancomycin Resistance [Not Detected] Not Detected (08/06/18 10:10 AM) vanB Vancomycin Resistance [Not Detected] Immunizations Not Given Vaccine Date Status Refusal Reason pneumococcal 13-valent vaccine 08/07/18 Not Given Patient Refuses Procedures Procedure Date Related Diagnosis Body Site Status Bronchoscopy 04/30/12 Completed Cataract surgery 03/28/12 Completed Craniotomy 04/27/07 Completed Knee replacement Completed Social History Social History Type Response Smoking Status Never smoker; Exposure to T obacco Smoke None; Cigarette Smoking Last 365 Days Yes; Reg Smoking Cessation [employer] Chair ing Yes entered on: 08/01/18 Assessment and Plan Extracted from: Title: Progress Note Complex * Author: Salvador Person Date: 08/07/18 MD Impression and Plan new onest seizure new [...] IV abx at facility dvt ppx Extracted from: Title: Discharge Summary * Author: Salvador Person Date: 08/07/18 Discharge Information new onest seizure new CVA - based on history and clinically patient has a CVA hx of brain 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 hypertension sepsis lactic acidosis pneumonia sepsis due to above resolving Discharge Plan Discharge Summary Plan Discharge Status: improved. Discharge instructions given: to patient. Discharge disposition: discharge to longterm facility. Prescriptions: e prescribed. Orders time spent > 35 minutes. Extracted from: Title: TELENEUROLOGY CONSULTATION Author: Liya Hassan MD Date: 08/02/18 NOTE TELENEUROLOGY CONSULTATION NOTE: CC: seizures HPI: Details [...] per HPI MEDS: Per list: lisinopril EXAM: VitalsTmp(F)[id number] 08/02 03:[id number]--- 08/01 22:[id number]--- 08/01 20:[id number]--- 08/01 18:55----[id number]------ 08/01 17:52----[id number]------ 24 Hr Tmax: 98F (36.67c) at 08/01 22:08V ital Signs are the last 5 in the [...] (NIHSS) 0 1a. Level of Consciousness; 0-alert 1- drowsy 2-stupor 3-comatose 1 1b. LOC Questions month and age; 0-b oth 1-one 2-neither 0 1c. LOC Commands open/close eyes, gr ip/release non-paretic hand; 0-both 1- one 2-neither 0 2. Best Gaze; 0-nl 1-partial 2-forced gaze 1 3. Visual Graham; 0-No visual loss. 1-Pa rtial hemianopia 2-Complete 3-Bilateral 0 4. Facial Palsy; 0-none 1-minor 2-pa rtial 3-complete 0 5. Motor - R arm; 0-No drift 1-Drift 2-Some antigravity 3-No antigravity 4-No movement 0 6. Motor - R leg; 0-No drift 1-Drift 2-Some antigravity 3-No antigravity 4-No movement 0 7. Motor - L arm; 0-No drift 1-Drift 2-Some antigravity 3-No antigravity 4-No movement 0 8. Motor - L leg; 0-No drift 1-Drift 2-Some antigravity 3-No antigravity 4-No movement 0 9. Limb Ataxia; 0 absent 1 - 1limb 2 - 2 limbs 0 10. Sensory; 0-nl 1-partial lo ss 2-dense loss 0 11. Best Language; 0-nl 1-mild/m od 2-severe 3-mute 1 12. Dysarthria; 0-nl 1-mild/mod 2-severe x-untestable 0 13. Extinction and Inattention (formerly Neglect); 0-none 1-partial 2-complete TOTAL SCORE 3 Pre-Morbid modified Lasalle Scale score: unknown DIAGNOSTIC TESTING: Brain wo [...] can follow up with Dr. Anibal Lombardo [facility] Neurology [id number] [place] [address] Dr. Altman [address] [place] [address] -Follow up with Oncologist Liya GonzalezMick Hassan MD Vascular Neurology Drill Operator of Neurology Call Center: [phone] Addendum by Mo Brain/Neck CARLOS Nickerson 08/02/2018 12:26 Impression : Betty CTA of the neck: on 1. Diffuse atherosclerotic changes. 08/02/2018 2. A 20% short segment sten osis at the origin of the right internal carotid artery. 14:35 3. A 50% stenosis at the or igin of the left internal carotid artery and a focal 65-70 % stenosis of the proximal internal carot id artery approximately 1.5 cm from the origin. 4. Codominant vertebral arteries withou t stenosis. 5. Extensive emphysematous changes in t he lung apices with scarring and atelectasis in the right perihilar region. Correlation wit h prior thoracic imaging and treatment history recommended. CTA of the [place]: Moderate atheromatous changes in bilate ral vertebral arteries. A focal 65-70% stenosis of the V4 segment left vertebral artery. 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 Chronic left sphenoid sinusitis. Significant intracranial atherosclerosi s, posterior circulation more affected, concern for small proximal basilar dissection Possible occipital infarct -No surgical intervention or anticoagul ation indicated -Aspirin, Plavix, statin -Correction to Neurology follow informa tion: [place] Neurology follow up, have patient/family call [phone] or email [email or web address] for vascular/stroke appointment. 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
--- OUTSIDE RECORDS SUMMARY | 2019-10-14 05:38 | XMS REPORT | CCD ---
Author Author Auto YELITZA Motley [facility] Address Unknown Phone Unavailable Care Team Providers Care Jacquard Lace Weaver Name Role Phone Claude Ford RP Allergies, Adverse Reactions, Alerts Substance Reaction Status NKDA Active NKFA Active Problem List Condition Effective Dates Status Cancer of respiratory system Resolved Cataracts Resolved Craniotomy Resolved GERD - Gastro-esophageal reflux disease Active Hemoptysis Active Hypertension Active Knee replacement Resolved Medications Medication Instructions Start Date End Date Status Protonix 40 mg oral 40 mg, 1 tab, PO, Daily, 30 tab, 04/27/20 Suspended enteric coated Substitution Allowed, ECTAB tablet lisinopril 10 mg 10 mg, 1 tab, PO, Daily, 30 tab, 04/27/2012 Suspended oral tablet Substitution Allowed, TAB Protonix 40 mg, 1 tab, Route: PO, Drug form: 04/30/201202/2012 Discontinued ECTAB, Daily, Dosing Weight 75.909, kg, Start date: 04/30/12 9:00:00, Duration: 30 day, Stop date: 05/29/12 9:00:00 lisinopril 10 mg, 1 tab, Route: PO, Drug form: 04/30/201202/2012 Discontinued TAB, Daily, Dosing Weight 75.909, kg, Start date: 04/30/12 9:00:00, Duration: 30 day, Stop date: 05/29/12 9:00:00 Vital Signs Most recent to oldest [Reference Range]: 1 2 3 Height 193.04 cm (04/27/2012 20:46:00) Systolic Blood Pressure [90-140 mmHg] 124 mmHg (04/30/2012 08:50:00) 129 mmHg (04/30/2012 08:45:00) 126 mmHg (04/30/2012 08:30:00) Diastolic Blood Pressure [60-90 mmHg] 94 mmHg *HI* (04/30/2012 08:50:00) 88 mmHg (04/30/2012 08:45:00) 89 mmHg (04/30/2012 08:30:00) Respiratory Rate [14-20 BRMIN] 16 BRMIN (04/30/2012 08:50:00) 18 BRMIN (04/30/2012 08:45:00) 18 BRMIN (04/30/2012 08:30:00) Peripheral Pulse Rate [60-100 bpm] 78 bpm (04/30/2012 08:50:00) 70 bpm (04/30/2012 06:41:00) Weight 75.909 kg (04/27/2012 20:46:00) Results HEMATOLOGY Most recent to oldest [Reference Range]: 1 WBC [3.7-10.4 K/CMM] 5.8 K/CMM (04/30/2012 06:15:00) RBC [4.70-6.10 M/CMM] 3.97 M/CMM *LOW* (04/30/2012 06:15:00) Hgb [14.0-18.0 g/dL] 12.6 g/dL *LOW* (04/30/2012 06:15:00) Hct [42.0-54.0 %] 38.3 % *LOW* (04/30/2012 06:15:00) MCV [80.0-94.0 fL] 96.4 fL *HI* (04/30/2012 06:15:00) MCH [27.0-31.0 pg] 31.6 pg *HI* (04/30/2012 06:15:00) MCHC [32.0-36.0 g/dL] 32.8 g/dL (04/30/2012 06:15:00) RDW [11.5-14.5 %] 14.6 % *HI* (04/30/2012 06:15:00) Platelet [133-450 K/CMM] 130 K/CMM *LOW* (04/30/2012 06:15:00) MPV [7.4-10.4 fL] 10.3 fL (04/30/2012 06:15:00) Segs [45.0-75.0 %] 62.5 % (04/30/2012 06:15:00) Lymphocytes [20.0-40.0 %] 24.1 % (04/30/2012 06:15:00) Monocytes [2.0-12.0 %] 11.5 % (04/30/2012 06:15:00) Eosinophils [0.0-4.0 %] 1.2 % (04/30/2012 06:15:00) Basophils [0.0-1.0 %] 0.7 % (04/30/2012 06:15:00) Segs-Bands # [1.5-8.1 K/CMM] 3.6 K/CMM (04/30/2012 06:15:00) Lymphocytes # [1.0-5.5 K/CMM] 1.4 K/CMM (04/30/2012 06:15:00) Monocytes # [0.0-0.8 K/CMM] 0.7 K/CMM (04/30/2012 06:15:00) Eosinophils # [0.0-0.5 K/CMM] 0.1 K/CMM (04/30/2012 06:15:00) Basophils # [0.0-0.2 K/CMM] 0.0 K/CMM (04/30/2012 06:15:00) PT [12.0-14.7 seconds] 13.4 seconds (04/30/2012 06:15:00) INR [0.85-1.17] 1.00 1 (04/30/2012 06:15:00) PTT [22.9-35.8 seconds] 36.7 seconds 2 *HI* (04/30/2012 06:15:00) 1Interpretive Data: RECOMMENDED RANGES FOR PROTIME INR: 2.0-3.0 for most medical and surgical thromboembolic states. 2.5-3.5 for artificial heart valves and recurrent embolism. INR SHOULD BE USED ONLY FOR PATIENTS ON STABLE ANTICOAGULANT THERAPY. 2Interpretive Data: Heparin Therapeutic Range: 57 - 92 Seconds Procedures Procedures Date Related Diagnosis Bronchoscopy 04/30/2012 00:00:00 Cataract surgery 03/28/2012 00:00:00 Craniotomy 04/27/2007 00:00:00 Knee replacement
--- OUTSIDE RECORDS SUMMARY | 2019-10-14 05:38 | XMS REPORT | Summary of Care ---
Author Organization Unknown Address Unknown Phone Unavailable Encounter FELICIA Stewart(ANNEMARIE) [id number] Date(s): 05/11/14 - 05/11/14 [facility] [address] [place] [address] Discharge Diagnosis: Back pain Discharge Disposition: Home Physician Attending: Rodney Conteh MD Physician Admitting: Rocco Jalloh MD Reason for Visit HERNIATED L4-L5 Vital Signs 1 2 3 Most recent to oldest [Reference Range]: 98.3 DegF (05/11/14 8:34 PM) 98.0 DegF (05/11/14 6:43 PM) 98.4 DegF (05/11/14 1:28 PM) Temperature Oral [96.4-99.1 DegF] 145 mmHg *HI* (05/11/14 8:34 PM) 119 mmHg (05/11/14 6:43 PM) 138 mmHg (05/11/14 5:43 PM) Systolic Blood Pressure [90-140 mmHg] 100 mmHg *HI* (05/11/14 8:34 PM) 79 mmHg (05/11/14 6:43 PM) 83 mmHg (05/11/14 5:43 PM) Diastolic Blood Pressure [60-90 mmHg] 18 BRMIN (05/11/14 8:34 PM) 18 BRMIN (05/11/14 6:43 PM) 18 BRMIN (05/11/14 1:28 PM) Respiratory Rate [14-20 BRMIN] 72 bpm (05/11/14 1:28 PM) Peripheral Pulse Rate [60-100 bpm] 91.818 kg (05/11/14 1:28 PM) Weight Problem List Condition Effective Dates Status Health Status Informan t Cancer of Resolved respiratory system(Confirmed) Cataracts(Confirmed) Resolved Craniotomy(Confirmed Resolved ) GERD - Active Gastro-esophageal reflux disease(Confirmed) Hemoptysis(Confirmed Active ) Hypertension(Confirm Active ed) Knee Resolved replacement(Confirme d) Allergies, Adverse Reactions, Alerts Substance Reaction Severity Status NKDA Active NKFA Active Medications No data available for this section Medications Administered During Your Visit No data available for this section Immunizations No data available for this section Social History Social History Type Response Smoking Status Never smoker, Exposure to T obacco Smoke None, Cigarette Smoking Last 365 Days Yes, Reg 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
--- NOTE | 2019-10-14 05:50 | NUR ---
Please see Code Blue sheet.
[2019-10-14] MEDS ORDERED: NOREPINEPHRINE 8 MG/D5W 250 ML 250 ML ONE (05:55)
[2019-10-14] MEDS ORDERED: CEFEPIME 2 GM/NS 0.9% 100 ML 100 ML IV ONE (06:00)
[2019-10-14] MEDS ORDERED: SODIUM CHLORIDE 0.9% 1000ML 1,000 ML IV ONE ×2 (06:00→06:15)
[2019-10-14] MEDS ORDERED: NOREPINEPHRINE INJ 4MG/4ML 8 MG in DEXTROSE 5% 250ML 250 ML IV PRN (06:00)
[2019-10-14] MEDS ORDERED: SODIUM CHLORIDE 0.9% 500ML 500 ML IV ONE (06:15)
[2019-10-14] MEDS ORDERED: SODIUM CHLORIDE 0.9% 1000ML 2,000 ML ONE (06:21)
[2019-10-14 06:24] LABS: HEMATOCRIT 25.1 % (38.2-49.6); HEMOGLOBIN 7.8 g/dL (14.0-18.0); LYMPHOCYTES # (AUTO) 0.5 (1.0-3.2); LYMPHOCYTES % 26.3 % (18.0-39.1); MEAN CORPUSCULAR HEMOGLOBIN 26.9 pg (28-32); MEAN CORPUSCULAR HGB CONC 31.1 g/dL (31-35); MEAN CORPUSCULAR VOLUME 86.6 fL (81-99); MONOCYTES % 1.6 % (4.4-11.3); NEUTROPHILS # (AUTO) 1.4 (2.1-6.9); PLATELET COUNT 55 x10e3/uL (140-360); RED CELL DISTRIBUTION WIDTH 17.3 % (11.7-14.4)
[2019-10-14] MEDS ORDERED: AZITHROMYCIN 500MG/NS 250 ML 250 ML IV STA (06:27)
[2019-10-14] MEDS ORDERED: VANCOMYCIN 1GM/NS 250 ML 250 ML IV STA (06:27)
[2019-10-14 06:41] LABS: INR 1.74; PROTHROMBIN TIME 21.6 seconds (11.9-14.5)
[2019-10-14 06:43] LABS: PARTIAL THROMBOPLASTIN TIME 93.6 seconds (23.8-35.5)
[2019-10-14 06:48] LABS: ALANINE AMINOTRANSFERASE 78 IU/L (0-55); ALBUMIN 1.3 g/dL (3.5-5.0); ALBUMIN/GLOBULIN RATIO 0.3 (0.8-2.0); ALKALINE PHOSPHATASE 85 IU/L (40-150); ANION GAP 14.3 mmol/L (8-16); BLOOD UREA NITROGEN 28 mg/dL (7-26); BUN/CREATININE RATIO 42 (6-25); CALCIUM 8.9 mg/dL (8.4-10.2); CARBON DIOXIDE 18 mmol/L (22-29); CHLORIDE 93 mmol/L (98-107); CREATINE KINASE 151 IU/L (30-200); CREATININE, SERUM 0.67 mg/dL (0.72-1.25); EST GLOMERULAR FILTRATION RATE > 60 ML/MIN (60-); GLUCOSE 121 mg/dL (74-118); POTASSIUM 4.3 mmol/L (3.5-5.1); SODIUM 121 mmol/L (136-145)
[2019-10-14 06:53] VITALS: BP 64/42
--- NOTE | 2019-10-14 06:56 | Emergency Department Note ---
History of Present Illnes History of Present Illness Chief Complaint: S/P CPR History of Present Illness This is a 83 year old male who presents via ems s/p cpr. per ems they were called for sob and agitation, ems reports he lost pulse when they were loading him on the stretcher for transport, ems reports epi times 4 and had return of pulse at 0520. on arrival at 0527 pt did not have a pulse, acls initiated, after epi times 2 here in er rosc achieved again. pt core body temp is 80.5 on arrival. . Historian: Dye Machine Tender/EMS Arrival Mode: [place] History limited by: other (pt is unresponsive) Onset (how long ago): minute(s) (30) Location: chest Quality: sob and then loss of pulse Severity: unable to specify Onset quality: sudden Duration (how long): hour(s) (30 minutes travel pta) Timing of current episode: unable to specify Chronicity: new Context: recent illness (was admitted to this facility september 26 for respiratory failure and pneumonia) Past Medical/Family History Physician Review I have reviewed the patient's past medical and family history. Any updates have been documented here. 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 Physical Exam Related Data Allergies: Coded Allergies: No Known Allergies (Unverified , 09/19/19) Triage Vital Signs Vital Signs Date Time Temp Pulse Resp B/P (MAP) Pulse Ox O2 Delivery O2 Flow Rate FiO2 10/14/19 05:48 63 22 100 22.0 Vital signs reviewed: Yes Physical Exam CONSTITUTIONAL Constitutional: cachectic HENT HENT: normocephalic, atraumatic, oropharynx clear/moist, nose normal HENT L/R: left ext ear normal, right ext ear normal EYES Eyes: PERRL, conjunctivae normal NECK Neck: other (trach present with copious amounts of sputum present, being ventilated with a bvm to trach) PULMONARY Pulmonary: other (bvm, bs decreased bilateral) CARDIOVASCULAR Cardiovascular: other (no pulse on arrival) GASTROINTESTINAL Abdominal: soft, nontender, bowel sounds normal GENITOURINARY Genitourinary: exam deferred SKIN Skin: warm, dry MUSCULOSKELETAL Musculoskeletal: ROM normal NEUROLOGICAL Neurological: no gross motor or sensory deficits, other (unresponsive) PSYCHOLOGICAL Psychological: other (cant determine unresponsive) Results Laboratory Laboratory Laboratory Tests Test 10/14/19 05:55 White Blood Count 1.90 x10e3/uL (4.8-10.8) Red Blood Count 2.90 x10e6/uL (4.3-5.7) Hemoglobin 7.8 g/dL (14.0-18.0) Hematocrit 25.1 % (38.2-49.6) Mean Corpuscular Volume 86.6 fL (81-99) Mean Corpuscular Hemoglobin 26.9 pg (28-32) Mean Corpuscular Hemoglobin Concent 31.1 g/dL (31-35) Red Cell Distribution Width 17.3 % (11.7-14.4) Platelet Count 55 x10e3/uL (140-360) Neutrophils (%) (Auto) 71.0 % (38.7-80.0) Lymphocytes (%) (Auto) 26.3 % (18.0-39.1) Monocytes (%) (Auto) 1.6 % (4.4-11.3) Eosinophils (%) (Auto) 0.0 % (0.0-6.0) Basophils (%) (Auto) 0.0 % (0.0-1.0) Neutrophils # (Auto) 1.4 (2.1-6.9) Lymphocytes # (Auto) 0.5 (1.0-3.2) Monocytes # (Auto) 0.0 (0.2-0.8) Eosinophils # (Auto) 0.0 (0.0-0.4) Basophils # (Auto) 0.0 (0.0-0.1) Absolute Immature Granulocyte (auto 0.02 x10e3/uL (0-0.1) Prothrombin Time 21.6 seconds (11.9-14.5) Prothromb Time International Ratio 1.74 Activated Partial Thromboplast Time 93.6 seconds (23.8-35.5) Sodium Level 121 mmol/L (136-145) Potassium Level 4.3 mmol/L (3.5-5.1) Chloride Level 93 mmol/L (98-107) Carbon Dioxide Level 18 mmol/L (22-29) Anion Gap 14.3 mmol/L (8-16) Blood Urea Nitrogen 28 mg/dL (7-26) Creatinine 0.67 mg/dL (0.72-1.25) Estimat Glomerular Filtration Rate > 60 ML/MIN (60-) BUN/Creatinine Ratio 42 (6-25) Glucose Level 121 mg/dL (74-118) Lactic Acid Level 9.1 mmol/L (0.5-2.0) Calcium Level 8.9 mg/dL (8.4-10.2) Total Bilirubin 0.3 mg/dL (0.2-1.2) Aspartate Amino Transf (AST/SGOT) 183 IU/L (5-34) Alanine Aminotransferase (ALT/SGPT) 78 IU/L (0-55) Alkaline Phosphatase 85 IU/L (40-150) Creatine Kinase 151 IU/L (30-200) Total Protein 5.8 g/dL (6.5-8.1) Albumin 1.3 g/dL (3.5-5.0) Globulin 4.5 g/dL (2.3-3.5) Albumin/Globulin Ratio 0.3 (0.8-2.0) Laboratory Tests Test 10/14/19 05:55 Lab results reviewed: Yes Imaging Imaging results reviewed: Yes Impressions right side hydro/pneumothorax Procedures 12 Lead ECG Interpretation Edge Burnisher Uppers: Interpreted by ED physician Prior CALENDER WIND UP TENDER tracings: reviewed Rhythm: sinus rhythm Rate: normal BPM: 60 QRS axis: normal ST segments normal: Yes T waves normal: Yes Q waves: V1, V2 Clinical Impression: abnormal ECG Central Line Placement Central Line Location: left femoral Time out performed: No Patient Placed on Monitor/Puls: No MD Prep: mask, gown, gloves Central Line Prep: Chlorhexidine scrub Ultrasound Used for Placement: No Central Line Lumen Inserted: triple Post Procedure: sutured in place, good blood return, all ports aspirated/flushed/capped, sterile dressing applied Patient tolerated procedure: no complications Complications: none Critical Care Time Total Critical Care Time (min): 40 Critcal care necessary due to: circulatory failure Critcal care time spent by me: discussion w consultants, interpret cardiac output measures, evaluation patient response to tx, examination of patient, review of old charts Subsequent provider I assumed direction of critical care for this patient from another provider of my specialty. Assessment & Plan Reassessment Reassessment return of spontaneous pulse after epi times 2, pulse 47 pt bradycardic with pulse atropine 0.5 mg iv vitals bp 103/89, heart rate 86, rr20, 02 100% on vent at 0556 bp 64/51 levophed started Assessment & Plan Final Impression: (1) Hypothermia (2) Neutropenia (3) Septic shock (4) Acute on chronic respiratory failure Assessment & Plan pt s/p cpr and is hypothermic, hypotensive, pt is most likely septic. initial lactic acid 9.1 wbc 1.9 fluid bolus of 2500 cc ordered cefepime 2 gram iv ordered zithromax 500 mg iv ordered vancomycin 1 gram iv ordered levophed ordered at 0556 dopmanine started at 0624 bp at this time 60/46 at 0645 i did a bedside fluid resuscitation exam, vitals at this time heart 62, rr24, bp 73/44, 02 100% on vent, temp 80.6 Depart Disposition: ADMITTED (to icu) Last Vital Signs Date Time Temp Pulse Resp B/P (MAP) Pulse Ox O2 Delivery O2 Flow Rate FiO2 10/14/19 05:48 63 22 100 22.0 Home Meds Reported Medications Valproate Sodium (VALPROIC ACID) 250 Mg/5 Ml Solution, 10 ML PEG Q12H, ML 09/20/19 Quetiapine Fumarate (QUETIAPINE FUMARATE) 25 Mg Tablet, 25 MG PEG Q12H 09/20/19 Multivitamin (MULTI-VITAMIN DAILY) 1 Each Tablet, 1 EA PEG HS 09/20/19 Levetiracetam (LEVETIRACETAM) 500 Mg Tablet, 1000 MG PEG Q12H 20 Ipratropium/Albuterol Sulfate (IPRAT-ALBUT 0.5-3(2.5) MG/3 ML) 3 Ml Ampul.neb, 3 ML IH Q6H 09/20/19 Guaifenesin (GUAIFENESIN) 100 Mg/5 Ml Liquid, 15 ML PEG Q12H PRN for NASAL CONGESTION 09/20/19 Glycopyrrolate (GLYCOPYRROLATE) 1 Mg/5 Ml Disp.syrin, 1 MG PEG Q8H 09/20/19 Furosemide (FUROSEMIDE) 40 Mg Tablet, 20 MG PEG Daily, #30 TAB 09/20/19 Famotidine (FAMOTIDINE) 20 Mg Tab, 20 MG PEG DAILY, #30 TAB 09/20/19 Enoxaparin Sodium (ENOXAPARIN SODIUM) 40 Mg/0.4 Ml Disp.syrin, 40 MG SC HS, SYR 09/20/19 Docusate Sodium (DOCUSATE SODIUM) 100 Mg Capsule, 100 MG PEG Q12H, CAP 09/19/19 Calcium Carbonate (CALCIUM CARBONATE) 500 Mg Tablet, 500 MG PEG Q12H, TAB 09/19/19 Budesonide, Micronized (BUDESONIDE) 0.5 Gm Powder, 2 ML IH Q12H 09/19/19 Bisacodyl* (DULCOLAX SUPP*) 10 Mg Supp, 10 MG RC DAILY PRN for CONSTIPATION, SUPP 09/19/19 Ascorbic Acid (ASCORBIC ACID) 500 Mg Tablet, 500 MG PEG Q12H, #30 TAB 09/19/19 Acetylcysteine (ACETYLCYSTEINE) 100 Mg/1 Ml Vial, 2 ML IH Q6H 09/19/19 Medications in the ED Norepinephrine Bitartrate 250 ml @ STK-MED ONCE .ROUTE ; Start 10/14/19 at 05:55; Stop 10/14/19 at 05:51; Status DC Sodium Chloride 1,000 ml @ 999 mls/hr Q1H1M ONCE IV ; Start 10/14/19 at 06:00; Stop 10/14/19 at 07:00 Cefepime HCl 100 ml @ 200 mls/hr ONCE ONCE IV ; Start 10/14/19 at 06:00; Stop 10/14/19 at 06:29 Norepinephrine 8 mg/Dextrose 258 ml @ 0 mls/hr TITRATE PRN IV LOW BLOOD PRESSURE; Start 10/14/19 at 06:00; Stop 11/13/19 at 05:59 Sodium Chloride 1,000 ml @ 0 mls/hr Q0M ONCE IV ; Start 10/14/19 at 06:15; Stop 10/14/19 at 06:16 Sodium Chloride 500 ml @ 0 mls/hr Q0M ONCE IV ; Start 10/14/19 at 06:15; Stop 10/14/19 at 06:16 Sodium Chloride 2,000 ml @ STK-MED ONCE .ROUTE ; Start 10/14/19 at 06:21; Stop 10/14/19 at 06:16; Status DC Dopamine HCl/ Dextrose 250 ml @ ud STK-MED ONCE IV ; Start 10/14/19 at 06:25; Stop 10/14/19 at 06:19; Status DC Dopamine HCl/ Dextrose 250 ml @ 13.778 mls/ hr TITRATE PRN IV HYPOTENSION; Start 10/14/19 at 06:30; Stop 11/13/19 at 06:29; Status UNV GINNA BYRNE MD October 14, 2019 06:56
--- NOTE | 2019-10-14 06:59 | Diagnostic Imaging Report ---
EXAMINATION: CHEST SINGLE (PORTABLE) INDICATION: S/P CPR COMPARISON: Chest radiograph 09-24-2019. FINDINGS: AP view TUBES and LINES: Unchanged tracheostomy tube. LUNGS: Bilateral airspace disease, increased in the right lung and decrease in the left lower lung. PLEURA: Increased moderate right pleural effusion. Possible trace left pleural effusion. Again noted is suspected moderate right pneumothorax, less pronounced at the right apex compared to prior study. There is also lucency overlying the right lung base. HEART AND MEDIASTINUM: The cardiomediastinal silhouette is unchanged. Unchanged fullness of the central pulmonary vasculature. Atherosclerotic calcification of the aortic arch. BONES AND SOFT TISSUES: No acute osseous lesion. Soft tissues are unremarkable. IMPRESSION: Multifocal airspace opacities, increased in the right lung and decrease in the left lower lung, which may represent pulmonary edema and/or multifocal pneumonia. Increased moderate right pleural effusion. Suspected moderate right-sided pneumothorax, which appears less pronounced at the apex and more pronounced at the base from prior radiograph. Recommend chest CT for further evaluation. The above findings were discussed with Dr. Love on 10/14/2019 at 6:53 AM. Signed by: Dr. Avril Merchant MD on 10/14/2019 6:56 AM
--- OUTSIDE RECORDS SUMMARY | 2019-10-14 07:12 | XMS REPORT | Continuity of Care Document ---
Author Author Tomas Johnson [employer] 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 Hemoptysis 06/20/2019 06/22/2019 [facility] Bronchiectasis 06/20/2019 06/22/2019 [facility] Cough 06/2006/22/2019 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 [facility] Cataracts Resolved Problem 05/02/2012 [facility] Craniotomy Resolved Problem 05/02/2012 [facility] GERD - Gastro-esophageal reflux disease Active Problem 05/02/2012 [facility] Hemoptysis Active Problem 05/02/2012 [facility] Hypertension Active Problem 05/02/2012 [facility] Knee replacement Resolved Problem 05/02/2012 [facility] 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 [facility] Bilateral cataracts (disorder) Resolved Problem 05/2019 [facility] [place] Craniotomy (procedure) Resolved Problem 06/22/2019 [facility] [place] Gastroesophageal reflux disease (disorder) Active Problem 06/22/2019 [facility] Hemoptysis (finding) Active Problem 06/22/2019 [facility] [place] Hypertensive disorder, systemic arterial (disorder) Active Problem 06/22/2019 [facility] Arthroplasty of knee (procedure) Resolved Problem 05/2019 [facility], [place] HEMOPTYSIS NOS Active [facility] UNSPECIFIED CONVULSIONS Active [facility] Medications Medication Details Route Status Patient Instructions Ordering Provider Order Date Source cefdinir 300 MG Oral Capsule 3 00 mg = 1 cap, PO, Q12H, X 7 day, # 14 cap, 0 Refill(s), Pharmacy: [id number] Active 08/09/2018 [facility] azithromycin 500 mg oral tablet 500 mg = 1 tab, PO, Daily, X 7 day, # 7 tab, 0 Refill(s), Pharmacy: [id number] Active 08/09/2018 [facility] doxycycline hyclate 150 MG Oral Tablet 150 mg = 1 tab, PO, BID, X 7 day, # 14 tab, 0 Refill(s), Pharmacy: [id number] Active 08/09/2018 [facility] vancomycin 1 g/150 mL-NaCl 0.9% intravenous solution 1,500 mg, IV, Q12H, # 2 ea, 0 Refill(s) Active 08/08/2018 [facility] Piperacillin 3000 MG / tazobactam 375 MG Injection [Zosyn] 3.375 gm, IV, Q8H, X 1 day, # 3 ea, 0 Re fill(s), Pharmacy: [id number] No Longer Active 08/08/2018 [facility] vancomycin + Sodium Chloride 0.9% IV 250 mL 2001 mg: infuse over 2.5 hours For adult patients only: Round to nearest 250 mg per Medical Staff approval MEDICATION WASTE Product Size: 1000 mg Product Wasted: ___ mg Inactive 08/07/2018 [facility] Zosyn + Sodium Chloride 0.9% IV 100 mL Notes: (Same as: Zosyn) Dosing based on Piperacillin component MEDICATION WASTE Product Size: 3375 mg Product Wasted: ___ mg No Longer Active 08/07/2018 [facility] Zosyn Notes: (Same as: Zosyn) Dosing based on Piperacillin component MEDICATION WASTE Product Size: 3375 mg Product Wasted: ___ mg Inactive 08/06/2018 [facility] Vancomycin Pharmacy Dosing + Sodium Chlo ride 0.9% IV 500 mL 2001 mg: infuse over 2.5 hours For ron lt patients only: Round to nearest 250 mg per Medical Staff approval MEDICATION WASTE Product Size: 1000 mg Product Wasted: ___ mg Inactive 08/06/2018 [facility] Vancomycin 2001 mg: infuse ov er 2.5 hours For adult patients only: Round to nearest 250 mg per Medical Staff approval No Longer Active 08/06/2018 [facility] normal saline 0.9% IV 1,000 mL 1,000 mL, Rate: 100 ml/hr, Infuse over: 10 hr, Route: IV, Dosing Weight 122 kg, Total Volume: 1,000, Start date: 08/06/18 11:36:00 CDT, Duration: 30 day, Stop date: 09/05/18 11:35:00 CDT, 2.57, m2 No Longer Active 08/06/2018 [facility] clopidogrel 75 mg oral tablet 75 mg = 1 tab, PO, Daily, # 30 tab, 1 Refill(s), Pharmacy: [facility] Active 08/06/2018 [facility] atorvastatin 40 mg oral tablet 40 mg = 1 tab, PO, Bedtime, # 30 tab, 1 Refill(s), Pharmacy: [facility] Active 08/06/2018 [facility] Aspirin 81 MG Enteric Coated Tablet 81 mg = 1 tab, PO, Daily, # 30 tab, 2 Refill(s), Pharmacy: [id number] Active 08/06/2018 [facility] Levetiracetam 1000 MG Oral Tablet [Keppra] 1,000 mg = 1 tab, PO, BID, # 60 tab, 1 Refill(s), Pharmacy: [facility] Active 08/06/2018 [facility] cefdinir 300 MG Oral Capsule 3 00 mg = 1 cap, PO, Q12H, X 7 day, # 14 cap, 0 Refill(s), Pharmacy: [id number] No Longer Active 08/06/2018 [facility] azithromycin 500 mg oral tablet 500 mg = 1 tab, PO, Daily, X 7 day, # 7 tab, 0 Refill(s), Pharmacy: [facility] No Longer Active 08/06/2018 [facility] Levofloxacin Notes: (Same as:Shaila espinal) Inactive 08/06/2018 [facility] Acetaminophen Notes: Do not ex ceed 4 gm/day. (Same as: Tylenol) No Longer Active 08/06/2018 [facility] Keppra 1,000 mg, 100 mL, Route : IVPB, Drug form: INJ, Q12H, Dosing Weight 122, kg, Start date: 08/05/18 20:55:00 CDT, Duration: 30 day, Stop date: 09/04/18 9:00:00 CDT No Longer Active 08/06/2018 [facility] Lasix Notes: (Same as: Lasix) MEDICATION WASTE Product Size: 40 mg Product Wasted: ___ mg Inactive 08/04/2018 [facility] Saline Flush 0.9% Notes: (Same as: BD Posiflush) No Longer Active 08/04/2018 [facility] Levetiracetam 1000 MG Oral Tablet [Keppra] Notes: (Same as:Keppra) No Longer Active 08/04/2018 [facility] Saline Flush 0.9% Notes: (Same as: BD Posiflush) No Longer Active 08/03/2018 [facility] Aspirin 81 MG Enteric Coated Tablet Notes: Do not crush or chew. (Same As: Ecotrin) No Longer Active 08/03/2018 [facility] Plavix Notes: (Same As: Plavix) No Longer Active 08/03/2018 [facility] Haldol Notes: (Same as: Haldol) Inactive 08/03/2018 [facility] Trazodone Notes: (Same As: Tye yrel) Inactive 08/03/2018 [facility] atorvastatin Notes: (Same as: Lipitor) No Longer Active 08/03/2018 [facility] Plavix Notes: (Same As: Plavix) Inactive 08/02/2018 [facility] Levetiracetam 1,000 mg, 100 mL , Route: IVPB, Drug form: INJ, Q12H, Dosing Weight 122, kg, Start date: 08/02/18 9:00:00 CDT, Duration: 30 day, Stop date: 08/31/18 21:00:00 CDT No Longer Active 08/02/2018 [facility] D5NS 1,000 mL 1,000 mL, Rate: 100 ml/hr, Infuse over: 10 hr, Route: IV, Dosing Weight 122 kg, Total Volume: 1,000, Start date: 08/02/18 5:02:00 CDT, Duration: 30 day, Stop date: 09/01/18 5:01:00 CDT, 2.57, m2 No Longer Active 08/02/2018 [facility] Aspirin Notes: Refrigerate. No Longer Active 08/01/2018 [facility] normal saline 0.9% IV 1,000 mL 1,000 mL, Rate: 75 ml/hr, Infuse over: 13.3 hr, Route: IV, Dosing Weight 122.727 kg, Total Volume: 1,000, Start date: 08/01/18 18:14:00 CDT, Duration: 30 day, Stop date: 08/31/18 18:13:00 CDT, 2.58, m2 No Longer Active 08/01/2018 [facility] Glucagon 1 mg, Route: IM, Drug form: PDR/INJ, PRN, Dosing Weight 122.727, kg, PRN Blood Glucose Results, Start date: 08/01/18 18:08:00 CDT, Duration: 30 day, Stop date: 08/31/18 18:07:00 CDT No Longer Active 08/01/2018 [facility] Dextrose 50% Syringe 25 gm, 50 mL, Route: IVP, Drug Form: INJ, Dosing Weight 122.727, kg, PRN, PRN Blood Glucose Results, Start date: 08/01/18 18:08:00 CDT, Duration: 30 day, Stop date: 08/31/18 18:07:00 CDT No Longer Active 08/01/2018 [facility] Keppra Notes: Same as Keppra Mix with 100 mL NS, LR or D5W MEDICATION WASTE Product Size: 500 mg Product Wasted: ___ mg Inactive 08/01/2018 [facility] Lorazepam Notes: (Same as: Byron morgan) Inactive 08/01/2018 [facility] Saline Flush 0.9% Notes: (Same as: BD Posiflush) No Longer Active 08/01/2018 [facility] Sodium Chloride 0.9% (Bolus) IV 1,000 mL, 1,000 ml/hr, Infuse Over: 1 hr, Route: IV, 1,000, Drug form: INJ, ONCE, Priority: STAT, Dosing Weight 122.727 kg, Start date: 08/01/18 12:26:00 CDT, Stop date: 08/01/18 12:26:00 CDT Inactive 08/01/2018 [facility] Protonix 40 mg, 1 tab, Route: PO, Drug form: ECTAB, Daily, Dosing Weight 75.909, kg, Start date: 04/30/12 9:00:00, Duration: 30 day, Stop date: 05/29/12 9:00:00 PO No Longer Active Tello 04/30/2012 [facility] lisinopril 10 mg, 1 tab, Route : PO, Drug form: TAB, Daily, Dosing Weight 75.909, kg, Start date: 04/30/12 9:00:00, Duration: 30 day, Stop date: 05/29/12 9:00:00 PO No Longer Active [place] 04/30/2012 [facility] Protonix 40 mg oral enteric coated tablet 40 mg, 1 tab, PO, Daily, 30 tab, Substitution Allowed, ECTAB PO On Hold Chance n 04/28/2012 [facility] lisinopril 10 mg oral tablet 1 0 mg, 1 tab, PO, Daily, 30 tab, Substitution Allowed, TAB PO On Hold [facility] n 04/28/2012 [facility] Allergies, Adverse Reactions, Alerts Substance Category Reaction Severity Reaction type Status Date Reported Comments Source NKFA Assertion Food allergy Active [facility] No Known Medication Allergies Assertion Drug aller gy [facility] Immunizations Immunization Date Given Site Status Last Updated Comments Source pneumococcal 13-valent vaccine 08/07/[address] [facility] Results Order Name Results Value Reference Range Date Interpretation Comments Source CHEM PANEL Glucose Lvl 85 70 - 99 06/20/2019 [facility] CHEM PANEL BUN 8 7 - 22 06/20/2019 [facility] CHEM PANEL Creatinine Lvl 0.58 0.50 - 1.40 06/20/2019 [facility] CHEM PANEL Sodium Lvl 140 135 - 145 06/20/2019 [facility] CHEM PANEL Potassium Lvl 3.6 3.5 - 5.1 06/20/2019 [facility] CHEM PANEL Chloride Lvl 103 95 - 109 06/20/2019 [facility] CHEM PANEL CO2 33 24 - 32 06/20/2019 [facility] CHEM PANEL Calcium Lvl 9.4 8.5 - 10.5 06/20/2019 [place] CHEM PANEL Total Protein 8.6 6.4 - 8.4 06/20/2019 [place] CHEM PANEL Albumin Lvl 2.8 3.5 - 5.0 06/20/2019 [place] CHEM PANEL ALT 10 0 - 65 06/20/2019 [place] CHEM PANEL AST 16 0 - 37 06/20/2019 [place] CHEM PANEL Alk Phos 81 39 - 136 06/20/2019 [place] CHEM PANEL Bili Total 0.7 0.2 - 1.3 06/20/2019 [place] CHEM PANEL AGAP 7.6 10.0 - 20.0 06/20/2019 [place] CHEM PANEL B/C Ratio 14 6 - 25 06/20/2019 [place] CHEM PANEL Globulin 5.8 2.7 - 4.2 06/20/2019 [place] CHEM PANEL A/G Ratio 0.5 0.7 - 1.6 06/20/2019 [place] CHEM PANEL eGFR 111 06/20/2019 Result Comment: [...] should be multiplied by the estimated BMI. [facility] HEMATOLOGY WBC 8.7 3.7 - 10.4 06/20/2019 [facility] HEMATOLOGY RBC 4.00 4.70 - 6.10 06/20/2019 [facility] HEMATOLOGY Hgb 11.6 14.0 - 18.0 06/20/2019 [facility] HEMATOLOGY Hct 35.5 42.0 - 54.0 06/20/2019 [facility] HEMATOLOGY MCV 88.9 80.0 - 94.0 06/20/2019 [facility] MCH 29.1 27.0 - 31.0 06/20/2019 [facility] MCHC 32.8 32.0 - 36.0 06/20/2019 [facility] RDW 15.4 11.5 - 14.5 06/20/2019 [facility] Platelet 255 133 - 450 06/20/2019 [facility] MPV 8.4 7.4 - 10.4 06/20/2019 [facility] PT 14.0 12.0 - 14.7 06/20/2019 [facility] HEMATOLOGY INR 1.08 0.85 - 1.17 06/20/2019 [facility] Segs 69.4 45.0 - 75.0 06/20/2019 [facility] Lymphocytes 17.1 20.0 - 40.0 06/20/2019 [facility] HEMATOLOGY Monocytes 10.1 2.0 - 12.0 06/20/2019 [facility] HEMATOLOGY Eosinophils 2.4 0.0 - 4.0 06/20/2019 [facility] HEMATOLOGY Basophils 1.0 0.0 - 1.0 06/20/2019 [facility] Neutrophils # 6.0 1.5 - 8.1 06/20/2019 [facility] Lymphocytes # 1.5 1.0 - 5.5 06/20/2019 [facility] Monocytes # 0.9 0.0 - 0.8 06/20/2019 [facility] HEMATOLOGY Eosinophils # 0.2 0.0 - 0.5 06/20/2019 [facility] Basophils # 0.1 0.0 - 0.2 06/20/2019 [facility] CHEM PANEL B/C Ratio 43 6 - 25 08/07/2018 [facility] CHEM PANEL Globulin 4.7 2.7 - 4.2 08/07/2018 [facility] CHEM PANEL AGAP 9.8 10.0 - 20.0 08/07/2018 [facility] CHEM PANEL A/G Ratio 0.5 0.7 - 1.6 08/07/2018 [facility] CHEM PANEL eGFR 82 08/07/2018 Result Comment: [...] should be multiplied by the estimated BMI. [facility] [place] [facility] [facility] AST 75 0 - 37 08/07/2018 [facility] [facility] ALT 37 0 - 65 08/07/2018 [facility] CHEM PANEL Bili Total 2.3 0.2 - 1.3 08/07/2018 [facility] CHEM PANEL Alk Phos 68 39 - 136 08/07/2018 [facility] [place] [facility] [facility] CO2 25 24 - 32 08/07/2018 [facility] [facility] Chloride Lvl 115 95 - 109 08/07/2018 [facility] [facility] Potassium Lvl 3.8 3.5 - 5.1 08/07/2018 [facility] [facility] Albumin Lvl 2.2 3.5 - 5.0 08/07/2018 [facility] CHEM PANEL Total Protein 6.9 6.4 - 8.4 08/07/2018 [facility] [facility] Calcium Lvl 8.6 8.5 - 10.5 08/07/2018 [facility] [facility] BUN 43 7 - 22 08/07/2018 [facility] [facility] Sodium Lvl 146 135 - 145 08/07/2018 [facility] CHEM PANEL Creatinine Lvl 1.00 0.50 - 1.40 08/07/2018 [place] CHEM PANEL Glucose Lvl 81 70 - 99 08/07/2018 [facility] HEMATOLOGY MPV 10.2 7.4 - 10.4 08/07/2018 [facility] HEMATOLOGY Platelet 122 133 - 450 08/07/2018 [facility] HEMATOLOGY RBC 4.05 4.70 - 6.10 08/07/2018 [facility] HEMATOLOGY Hgb 12.5 14.0 - 18.0 08/07/2018 [facility] HEMATOLOGY MCH 30.8 27.0 - 31.0 08/07/2018 [facility] HEMATOLOGY MCV 92.3 80.0 - 94.0 08/07/2018 [facility] Hct 37.4 42.0 - 54.0 08/07/2018 [facility] MCHC 33.4 32.0 - 36.0 08/07/2018 [facility] HEMATOLOGY RDW 13.8 11.5 - 14.5 08/07/2018 [facility] WBC 17.6 3.7 - 10.4 08/07/2018 [facility] Lymphocytes 8.0 20.0 - 40.0 08/07/2018 [facility] HEMATOLOGY Segs 68.0 45.0 - 75.0 08/07/2018 [facility] HEMATOLOGY Bands 11.0 0.0 - 11.0 08/07/2018 [facility] Atypical Lymphs 0.0 <=0.0 % 08/07/2018 [facility] Monocytes 13.0 2.0 - 12.0 08/07/2018 [facility] Plt Morph Brittany l (08/07/18 9:46 AM) 08/07/2018 [facility] RBC Morph Brittany l (08/07/18 9:46 AM) 08/07/2018 [facility] Hypochrom 1+ (08/07/18 9:46 AM) None Seen 08/07/2018 [facility] Neutrophils # 13.9 1.5 - 8.1 08/07/2018 [facility] Monocytes # 2.3 0.0 - 0.8 08/07/2018 [facility] Lymphocytes # 1.4 1.0 - 5.5 08/07/2018 [facility] CHEM PANEL Lactic Acid Lvl 1.5 0.5 - 2.2 08/07/2018 [facility] CHEM PANEL Lactic Acid Lvl 2.9 0.5 - 2.2 08/07/2018 [facility] CHEM PANEL Lactic Acid Lvl 3.3 0.5 - 2.2 08/06/2018 [facility] CHEM PANEL Procalcitonin Lvl 43.12 0.00 - 0.10 08/06/2018 Result Comment: Critical Result(s) anayeli ott at 08/06/2018 13:49 by kr. Read back OK. [facility] MOLECULAR DIAGNOSTIC mecA Methicilli n Resistance Not Detected (08/06/18 10:10 AM) Not Detected 08/06/2018 [facility] MOLECULAR DIAGNOSTIC vanB Vancomycin Resistance Not Detected (08/06/18 10:10 AM) Not Detected 08/06/2018 [facility] DIAGNOSTIC Joanna Vancomycin Resistance Not Detected (08/06/18 10:10 AM) Not Detected 08/06/2018 [facility] DIAGNOSTIC Streptococcus s pp. Not Detected (08/06/18 10:10 AM) Not Detected 08/06/2018 [facility] MOLECULAR DIAGNOSTIC Listeria spp. Not Detected (08/06/18 10:10 AM) Not Detected 08/06/2018 [facility] DIAGNOSTIC S. pyogenes Not Detected (08/06/18 10:10 AM) Not Detected 08/06/2018 [facility] DIAGNOSTIC S. pneumoniae Not Detected (08/06/18 10:10 AM) Not Detected 08/06/2018 [facility] DIAGNOSTIC S. agalactiae Not Detected (08/06/18 10:10 AM) Not Detected 08/06/2018 [facility] DIAGNOSTIC Staphylococcus spp. Detected *ABN* (08/06/18 10:10 AM) Not Detected 08/06/2018 [facility] DIAGNOSTIC E. faecium Not Detected (08/06/18 10:10 AM) Not Detected 08/06/2018 [facility] DIAGNOSTIC E. faecalis Not Detected (08/06/18 10:10 AM) Not Detected 08/06/2018 [facility] DIAGNOSTIC S. epidermidis Not Detected (08/06/18 10:10 AM) Not Detected 08/06/2018 [facility] DIAGNOSTIC S. aureus Not Detected (08/06/18 10:10 AM) Not Detected 08/06/2018 [facility] DIAGNOSTIC S. anginosus gr p Not Detected (08/06/18 10:10 AM) Not Detected 08/06/2018 [facility] DIAGNOSTIC S. lugdunensis Not Detected (08/06/18 10:10 AM) Not Detected 08/06/2018 [facility] CHEM PANEL Phosphorus 3.0 2.5 - 4.5 08/06/2018 [facility] CHEM PANEL Globulin 5.0 2.7 - 4.2 08/06/2018 [facility] CHEM PANEL B/C Ratio 29 6 - 25 08/06/2018 [facility] CHEM PANEL A/G Ratio 0.5 0.7 - 1.6 08/06/2018 [facility] CHEM PANEL AGAP 13.0 10.0 - 20.0 08/06/2018 [place] CHEM PANEL eGFR 53 08/06/2018 Result Comment: [...] should be multiplied by the estimated BMI. [place] CHEM PANEL BUN 42 7 - 22 08/06/2018 [facility] Creatinine Lvl 1.44 0.50 - 1.40 08/06/2018 [place] CHEM PANEL Sodium Lvl 139 135 - 145 08/06/2018 [place] CHEM PANEL Potassium Lvl 4.0 3.5 - 5.1 08/06/2018 [place] CHEM PANEL Chloride Lvl 106 95 - 109 08/06/2018 [place] CHEM PANEL Glucose Lvl 110 70 - 99 08/06/2018 [place] CHEM PANEL Calcium Lvl 8.8 8.5 - 10.5 08/06/2018 [place] CHEM PANEL CO2 24 24 - 32 08/06/2018 [facility] Albumin Lvl 2.6 3.5 - 5.0 08/06/2018 [place] CHEM PANEL Total Protein 7.6 6.4 - 8.4 08/06/2018 [place] CHEM PANEL AST 34 0 - 37 08/06/2018 [facility] [facility] ALT 13 0 - 65 08/06/2018 [facility] [facility] Alk Phos 76 39 - 136 08/06/2018 [facility] CHEM PANEL Bili Total 2.3 0.2 - 1.3 08/06/2018 [facility] [facility] Magnesium Lvl 2.1 1.8 - 2.4 08/06/2018 [facility] HEMATOLOGY RBC Morph Brittany l (3/18/19 4:04 AM) 08/06/2018 [facility] HEMATOLOGY Atypical Lymphs 0.0 <=0.0 % 08/06/2018 [facility] HEMATOLOGY Plt Morph Brittany l (08/06/18 4:04 AM) 08/06/2018 [facility] HEMATOLOGY Myelocytes 3.0 <=0.0 % 08/06/2018 [facility] HEMATOLOGY Monocytes 8.0 2.0 - 12.0 08/06/2018 [facility] HEMATOLOGY Metamyelocytes 1.0 0.0 - 1.0 08/06/2018 [facility] Monocytes # 1.2 0.0 - 0.8 08/06/2018 [facility] HEMATOLOGY Segs 55.0 45.0 - 75.0 08/06/2018 [facility] HEMATOLOGY Bands 25.0 0.0 - 11.0 08/06/2018 [facility] Lymphocytes 8.0 20.0 - 40.0 08/06/2018 [facility] Neutrophils # 12.2 1.5 - 8.1 08/06/2018 [facility] Lymphocytes # 1.2 1.0 - 5.5 08/06/2018 [facility] HEMATOLOGY Platelet 137 133 - 450 08/06/2018 [facility] HEMATOLOGY MPV 10.0 7.4 - 10.4 08/06/2018 [facility] HEMATOLOGY MCV 93.3 80.0 - 94.0 08/06/2018 [facility] Hct 45.3 42.0 - 54.0 08/06/2018 [facility] MCHC 33.0 32.0 - 36.0 08/06/2018 [facility] MCH 30.8 27.0 - 31.0 08/06/2018 [facility] HEMATOLOGY RDW 14.1 11.5 - 14.5 08/06/2018 [facility] HEMATOLOGY Hgb 15.0 14.0 - 18.0 08/06/2018 [facility] HEMATOLOGY RBC 4.86 4.70 - 6.10 08/06/2018 [facility] WBC 15.2 3.7 - 10.4 08/06/2018 [facility] CHEM PANEL Phosphorus 3.5 2.5 - 4.5 08/04/2018 [facility] CHEM PANEL Magnesium Lvl 1.9 1.8 - 2.4 08/04/2018 [facility] [place] CHEM PANEL eGFR 94 08/04/2018 Result Comment: [...] should be multiplied by the estimated BMI. [place] CHEM PANEL Total Protein 8.0 6.4 - 8.4 08/04/2018 [place] CHEM PANEL Albumin Lvl 3.0 3.5 - 5.0 08/04/2018 [place] CHEM PANEL A/G Ratio 0.6 0.7 - 1.6 08/04/2018 [place] CHEM PANEL Globulin 5.0 2.7 - 4.2 08/04/2018 [place] CHEM PANEL ALT 21 0 - 65 08/04/2018 [place] CHEM PANEL AST 14 0 - 37 08/04/2018 [place] CHEM PANEL Bili Total 0.9 0.2 - 1.3 08/04/2018 [place] CHEM PANEL Alk Phos 88 39 - 136 08/04/2018 [place] CHEM PANEL Chloride Lvl 105 95 - 109 08/04/2018 [place] CHEM PANEL CO2 27 24 - 32 08/04/2018 [place] CHEM PANEL Creatinine Lvl 0.86 0.50 - 1.40 08/04/2018 [place] CHEM PANEL Potassium Lvl 3.9 3.5 - 5.1 08/04/2018 [place] CHEM PANEL Sodium Lvl 138 135 - 145 08/04/2018 [place] CHEM PANEL BUN 9 7 - 22 08/04/2018 [place] CHEM PANEL Glucose Lvl 92 70 - 99 08/04/2018 [place] CHEM PANEL AGAP 9.9 10.0 - 20.0 08/04/2018 [facility] [place] CHEM PANEL B/C Ratio 10 6 - 25 08/04/2018 [facility] CHEM PANEL Calcium Lvl 8.5 8.5 - 10.5 08/04/2018 [facility] HEMATOLOGY Segs 70.1 45.0 - 75.0 08/04/2018 [facility] HEMATOLOGY Basophils # 0.1 0.0 - 0.2 08/04/2018 [facility] HEMATOLOGY Eosinophils # 0.2 0.0 - 0.5 08/04/2018 [facility] HEMATOLOGY Monocytes # 1.1 0.0 - 0.8 08/04/2018 [facility] HEMATOLOGY Lymphocytes # 1.1 1.0 - 5.5 08/04/2018 [facility] Neutrophils # 5.8 1.5 - 8.1 08/04/2018 [facility] Basophils 0.8 0.0 - 1.0 08/04/2018 [facility] Lymphocytes 13.5 20.0 - 40.0 08/04/2018 [facility] HEMATOLOGY Eosinophils 2.1 0.0 - 4.0 08/04/2018 [facility] Monocytes 13.5 2.0 - 12.0 08/04/2018 [facility] HEMATOLOGY Hct 39.9 42.0 - 54.0 08/04/2018 [facility] HEMATOLOGY Hgb 13.6 14.0 - 18.0 08/04/2018 [facility] HEMATOLOGY RBC 4.35 4.70 - 6.10 08/04/2018 [facility] MCH 31.3 27.0 - 31.0 08/04/2018 [facility] MCV 91.8 80.0 - 94.0 08/04/2018 [facility] HEMATOLOGY WBC 8.3 3.7 - 10.4 08/04/2018 [facility] RDW 13.7 11.5 - 14.5 08/04/2018 [facility] HEMATOLOGY Platelet 133 133 - 450 08/04/2018 [facility] [facility] MCHC 34.1 32.0 - 36.0 08/04/2018 [facility] MPV 9.9 7.4 - 10.4 08/04/2018 [facility] URINE AND STOOL UA WBC 4 0 - 5 08/03/2018 [facility] URINE AND STOOL UA Sq Epi None Seen (08/03/18 1:02 PM) Few 08/03/2018 [facility] URINE AND STOOL UA Bacteria Occasional /HPF None Seen /HPF 08/03/2018 [place] URINE AND STOOL UA RBC <1 0 - 2 08/03/2018 [facility] Color Yellow *NA* (08/03/18 1:02 PM) Yellow 08/03/2018 [place] URINE AND STOOL UA pH 8.0 5.0 - 8.0 08/03/2018 [place] URINE AND STOOL UA Protein Negative (08/03/18 1:02 PM) Negative 08/03/2018 [facility] URINE AND STOOL UA Spec Grav 1.009 <=1.030 08/03/2018 [facility] URINE AND STOOL UA Turbidity Slight *ABN* (08/03/18 1:02 PM) Clear 08/03/2018 [facility] URINE AND STOOL UA Nitrite Negative (08/03/18 1:02 PM) Negative 08/03/2018 [facility] URINE AND STOOL UA Leuk Est Negative (08/03/18 1:02 PM) Negative 08/03/2018 [facility] URINE AND STOOL UA Urobilinogen <=1.0 mg/dL 0.1 - 1.0 08/03/2018 Result Comment: performed on multistix by nm [facility] URINE AND STOOL UA Ketones Negative *NA* (08/03/18 1:02 PM) Negative 08/03/2018 [facility] URINE AND STOOL UA Glucose Negative *NA* (08/03/18 1:02 PM) Negative 08/03/2018 [facility] URINE AND STOOL UA Bili Negative *NA* (08/03/18 1:02 PM) Negative 08/03/2018 [facility] URINE AND STOOL UA Blood Negative (08/03/18 1:02 PM) Negative 08/03/2018 [facility] CHEM PANEL Magnesium Lvl 1.9 1.8 - 2.4 08/03/2018 [facility] CHEM PANEL Phosphorus 3.7 2.5 - 4.5 08/03/2018 [facility] HEMATOLOGY Eosinophils 4.1 0.0 - 4.0 08/03/2018 [facility] HEMATOLOGY Basophils 0.9 0.0 - 1.0 08/03/2018 [facility] HEMATOLOGY Basophils # 0.1 0.0 - 0.2 08/03/2018 [facility] HEMATOLOGY Eosinophils # 0.3 0.0 - 0.5 08/03/2018 [facility] LIPIDS CHD Risk 2.90 4.00 - 7.30 08/03/2018 [facility] LIPIDS VLDL 10 08/03/2018 [facility] LIPIDS LDL (Calculated) 64 <=99 mg/dL 08/03/2018 [facility] LIPIDS HDL 39 >=61 mg/dL 08/03/2018 [facility] LIPIDS Chol 113 <=199 mg/dL 08/03/2018 [facility] LIPIDS Trig 51 <=149 mg/dL 08/03/2018 [facility] SPECIAL CHEMISTRY Hgb A1C 5.2 <=5.6 % 08/03/2018 [facility] DRUG SCREEN UDS Note See Note *NA* (08/01/18 4:20 PM) 08/01/2018 [facility] DRUG SCREEN U Amph Scr Nega tive *NA* (08/01/18 4:20 PM) Negative 08/01/2018 [facility] DRUG SCREEN U Cannab Scr Nega tive *NA* (08/01/18 4:20 PM) Negative 08/01/2018 [facility] DRUG SCREEN U Opiate Scr Nega tive *NA* (08/01/18 4:20 PM) Negative 08/01/2018 [facility] DRUG SCREEN U Renita Scr Nega tive *NA* (08/01/18 4:20 PM) Negative 08/01/2018 [facility] DRUG SCREEN U Cocaine Scr Nega tive *NA* (08/01/18 4:20 PM) Negative 08/01/2018 [facility] DRUG SCREEN U Benzodiaz Scr Nega tive *NA* (08/01/18 4:20 PM) Negative 08/01/2018 [facility] DRUG SCREEN U Phencyclidine Scr Nega tive *NA* (08/01/18 4:20 PM) Negative 08/01/2018 [facility] URINE AND STOOL UA Nitrite Negative (08/01/18 4:20 PM) Negative 08/01/2018 [facility] URINE AND STOOL UA Leuk Est Negative (08/01/18 4:20 PM) Negative 08/01/2018 [facility] URINE AND STOOL UA Bili Negative *NA* (08/01/18 4:20 PM) Negative 08/01/2018 [facility] URINE AND STOOL UA Blood Small *ABN* (08/01/18 4:20 PM) Negative 08/01/2018 [facility] URINE AND STOOL UA Urobilinogen <=1.0 mg/dL 0.1 - 1.0 08/01/2018 [place] URINE AND STOOL UA Hyal Cast 1 0 - 2 08/01/2018 [facility] URINE AND STOOL UA Mucus Few /LPF None Seen /LPF 08/01/2018 [place] URINE AND STOOL UA WBC 1 0 - 5 08/01/2018 [facility] URINE AND STOOL UA RBC <1 0 - 2 08/01/2018 [place] URINE AND STOOL UA Sq Epi None Seen (08/01/18 4:20 PM) Few 08/01/2018 [place] URINE AND STOOL UA Bacteria Occasional /HPF None Seen /HPF 08/01/2018 [place] URINE AND STOOL UA Ketones Negative *NA* (08/01/18 4:20 PM) Negative 08/01/2018 [facility] URINE AND STOOL UA Protein Negative (08/01/18 4:20 PM) Negative 08/01/2018 [facility] URINE AND STOOL UA Glucose Negative *NA* (08/01/18 4:20 PM) Negative 08/01/2018 [facility] URINE AND STOOL UA Turbidity Clear (08/01/18 4:20 PM) Clear 08/01/2018 [facility] URINE AND STOOL UA Spec Grav 1.008 <=1.030 08/01/2018 [facility] URINE AND STOOL UA pH 8.0 5.0 - 8.0 08/01/2018 [facility] URINE AND STOOL UA Color STRAW 08/01/2018 [facility] CARDIAC ENZYMES Total CK 161 12 - 191 08/01/2018 [facility] CARDIAC ENZYMES Troponin-I <0.02 0.00 - 0.40 08/01/2018 [facility] CHEM PANEL Ammonia 59.0 <=45.0 uMol/L 08/01/2018 [facility] HEMATOLOGY Basophils 0.8 0.0 - 1.0 08/01/2018 [facility] HEMATOLOGY Eosinophils 1.4 0.0 - 4.0 08/01/2018 [facility] HEMATOLOGY Basophils # 0.1 0.0 - 0.2 08/01/2018 [facility] HEMATOLOGY Eosinophils # 0.1 0.0 - 0.5 08/01/2018 [facility] HEMATOLOGY INR 1.04 0.85 - 1.17 08/01/2018 [facility] HEMATOLOGY PT 13.4 12.0 - 14.7 08/01/2018 [facility] HEMATOLOGY PTT 35.2 22.9 - 35.8 08/01/2018 [facility] TOXICOLOGY Ethanol Lvl <3.0 mg/dL 08/01/2018 [facility] TOXICOLOGY Etoh (%) <0.003 % 08/01/2018 [facility] HEMATOLOGY Segs 62.5 45.0 - 75.0 04/30/2012 Normal [facility] HEMATOLOGY Eosinophils 1.2 0.0 - 4.0 04/30/2012 Normal [facility] HEMATOLOGY Monocytes 11.5 2.0 - 12.0 04/30/2012 Normal [facility] HEMATOLOGY Lymphocytes 24.1 20.0 - 40.0 04/30/2012 Normal [facility] HEMATOLOGY Segs-Bands # 3.6 1.5 - 8.1 04/30/2012 Normal [facility] HEMATOLOGY Basophils 0.7 0.0 - 1.0 04/30/2012 Normal [facility] HEMATOLOGY Lymphocytes # 1.4 1.0 - 5.5 04/30/2012 Normal [facility] HEMATOLOGY Monocytes # 0.7 0.0 - 0.8 04/30/2012 Normal [facility] HEMATOLOGY Eosinophils # 0.1 0.0 - 0.5 04/30/2012 Normal [facility] HEMATOLOGY Basophils # 0.0 0.0 - 0.2 04/30/2012 Normal [facility] HEMATOLOGY PT 13.4 12.0 - 14.7 04/30/2012 Normal [facility] HEMATOLOGY PTT 36.7 22.9 - 35.8 04/30/2012 [place] <sup>2</sup>Interpretive Data: Heparin T herapeutic Range: 57 - 92 Seconds [facility] HEMATOLOGY INR 1.00 0.85 - 1.17 04/30/2012 Normal <sup>1</sup>Interpretive Data: RECOMMEND ED RANGES FOR PROTIME INR:
2.0-3.0 for most medical and surgical thromboembolic states.
2.5-3.5 for artificial heart valves and recurrent embolism.

INR SHOULD BE USED ONLY FOR PATIENTS ON STABLE ANTICOAGULANT THERAPY. [facility] HEMATOLOGY Platelet 130 133 - 450 04/30/2012 LOW [facility] HEMATOLOGY MPV 10.3 7.4 - 10.4 04/30/2012 Normal [facility] HEMATOLOGY RDW 14.6 11.5 - 14.5 04/30/2012 [facility] HEMATOLOGY Hct 38.3 42.0 - 54.0 04/30/2012 [facility] HEMATOLOGY RBC 3.97 4.70 - 6.10 04/30/2012 [facility] HEMATOLOGY MCV 96.4 80.0 - 94.0 04/30/2012 [facility] HEMATOLOGY Hgb 12.6 14.0 - 18.0 04/30/2012 [facility] HEMATOLOGY MCH 31.6 27.0 - 31.0 04/30/2012 [facility] HEMATOLOGY MCHC 32.8 32.0 - 36.0 04/30/2012 [facility] HEMATOLOGY WBC 5.8 3.7 - 10.4 04/30/2012 Normal [facility] Pathology Reports No Data Provided for This [...] exam. Noah Philippe MD On 06/20/2019 19:28:19; [id number] 06/20/2019 [facility] 1view DX PROCEDURE INFOR MATION: Exam: XR [...] Victor Hugo Hanson MD On 06/20/2019 17:51:00; [id number] 06/20/2019 [facility] 1view DX Clinical Indica tion: - rule [...] right lung base, concerning for pneumonia. SL: [id number] 08/06/2018 [facility] 1view DX Patient Name: Tyrel MAGANA WHITE : 1935; Age: 82 years y/o Male MR: [id number] Study: Chest 1view DX 08/04/2018 10:01 AM [...] recommended for further evaluation. SL: [id number] 08/04/2018 [facility] Esophagus BA swallow function video DX (Total [...] delayed cough reflex with the cup swallow. [place]: No aspiration or penetration. Honey: Not done Pudding: No aspiration or penetration. Solid: Attempted, but patient spit out without swallowing See the Speech Pathologist's report for additional comments. MISTY [id number] 08/02/2018 [facility] Brain/Neck CTA EXAM: CTA BRAIN EXAM: CTA [...] to patient size -Use of iterative reconstruction SSN Funding ue CT Radiation Dose DLP 102 mGy-cm [...] rest of the basilar arteries unremarkable. 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 CTA of the chinik of [place]: Moderate atheromatous changes in bilateral [...] distal internal carotid artery {NASCET criteria}.) 08/02/2018 [facility] Chest 1view DX Clinical Indica tion: - [...] mass. 3. Mild left base atelectasis. SL: [id number] 08/01/2018 [facility] Brain wo contrast CT Clinical Indication: - [...] to patient size -Use of iterative reconstruction technKopo Kopo ue CT Radiation Dose DLP 2016 mGy-cm [...] he expressed understanding. ----- SL: CAT 08/01/2018 [facility] Spine lumbar wo contrast MRI M RI [...] to moderate bilateral neural foraminal stenosis. 05/11/2014 [facility] Spine lumbar wo contrast CT EX AM: [...] coronary calcifications. 6. Left renal cyst. 05/11/2014 [facility] Spine thoracic wo contrast CT EXAM: CT [...] coronary calcifications. 6. Left renal cyst. 05/11/2014 [facility] Consultation Notes No Data Provided for This Section Discharge Summaries No Data Provided for This Section History and Physicals No Data Provided for This Section Vital Signs Vital Sign Value Date Comments Source Systolic (mm Hg) 132 06/21/2019 [facility] Diastolic (mm Hg) 79 06/21/2019 [facility] Respitory Rate 16 06/21/2019 [facility] Heart Rate 95 06/21/2019 [facility] Temperature Oral (F) 98 F 06/21/2019 [facility] Heart Rate 96 06/20/2019 [facility] Respitory Rate 20 06/20/2019 [facility] Systolic (mm Hg) 142 06/20/2019 [facility] Diastolic (mm Hg) 94 06/20/2019 [facility] Systolic (mm Hg) 136 06/20/2019 [facility] Diastolic (mm Hg) 98 06/20/2019 [facility] Heart Rate 94 06/20/2019 [facility] Respitory Rate 17 06/20/2019 [facility] Temperature Oral (F) 98.1 F 06/20/2019 [facility] Height 193.04 cm 06/20/2019 [facility] BMI Calculated 21.96 06/20/2019 [facility] Weight 81.818 06/20/2019 [facility] Systolic (mm Hg) 123 08/07/2018 [facility] Diastolic (mm Hg) 77 08/07/2018 [facility] Respitory Rate 16 08/07/2018 [facility] Heart Rate 66 08/07/2018 [facility] Temperature Oral (F) 98.1 F 08/07/2018 [facility] Heart Rate 65 08/07/2018 [facility] Temperature Oral (F) 98.2 F 08/07/2018 [facility] Respitory Rate 16 08/07/2018 [facility] Systolic (mm Hg) 112 08/07/2018 [facility] Diastolic (mm Hg) 61 08/07/2018 [facility] Heart Rate 81 08/07/2018 [facility] Temperature Oral (F) 98.2 F 08/07/2018 [facility] Respitory Rate 17 08/07/2018 [facility] Systolic (mm Hg) 113 08/07/2018 [facility] Diastolic (mm Hg) 65 08/07/2018 [facility] Weight 122 08/02/2018 [facility] Weight 122.727 08/01/2018 [facility] BMI Calculated 32.93 08/01/2018 [facility] Height 193.04 cm 08/01/2018 [facility] Respitory Rate 18 05/12/2014 [facility] Temperature Oral (F) 98.3 F 05/12/2014 [facility] Diastolic (mm Hg) 100 05/12/2014 [facility] Systolic (mm Hg) 145 05/12/2014 [facility] Systolic (mm Hg) 119 05/12/2014 [facility] Diastolic (mm Hg) 79 05/12/2014 [facility] Temperature Oral (F) 98.0 F 05/12/2014 [facility] Respitory Rate 18 05/12/2014 [facility] Diastolic (mm Hg) 83 05/11/2014 [facility] Systolic (mm Hg) 138 05/11/2014 [facility] Heart Rate 72 05/11/2014 [facility] Respitory Rate 18 05/11/2014 [facility] Temperature Oral (F) 98.4 F 05/11/2014 [facility] Weight 91.818 05/11/2014 [facility] Diastolic (mm Hg) 94 04/30/2012 [facility] Systolic (mm Hg) 124 04/30/2012 [facility] Respitory Rate 16 04/30/2012 [facility] Heart Rate 78 04/30/2012 [facility] Systolic (mm Hg) 129 04/30/2012 [facility] Respitory Rate 18 04/30/2012 [facility] Diastolic (mm Hg) 88 04/30/2012 [facility] Systolic (mm Hg) 126 04/30/2012 [facility] Respitory Rate 18 04/30/2012 [facility] Diastolic (mm Hg) 89 04/30/2012 [facility] Heart Rate 70 04/30/2012 [facility] Height 193.04 cm 04/28/2012 [facility] Weight 75.909 04/28/2012 [facility] Encounters Location Location Details Encounter Type Encounter Number Reason For Visit Attending Provider ADM Date DC Date Status Source Verónica BUNNY [id number] KATIA TELLO 04/30/2012 04/30/2012 Active [facility] [id number] Rocco Jalloh 05/11/2014 05/12/2014 [facility] Inpatient [id number] Salvador Person 08/01/2018 08/07/2018 [facility] Emergency [id number] Allyson SepulvedaBrady 06/20/2019 06/21/2019 [facility] Procedures Procedure Code Date Perfomer Comments Source Bronchoscopy [id number] 04/30/2012 [facility] Bronchoscopy [id number] 04/30/2012 [facility] Cataract surgery [id number] 03/28/2012 [facility] Cataract surgery [id number] 03/28/2012 [facility] Craniotomy [id number] 04/27/2007 [facility] Craniotomy [id number] 04/27/2007 [facility] Knee replacement [id number] [facility] Knee replacement [id number] [facility] d Assessment and Plan Assessment and Plan [...] 2-neither 0 1c. LOC Commands open/close eyes, crate liner/r elease non-paretic hand; 0-both 1-one 2-neither 0 [...] can follow up with Dr. Anibal Lombardo [facility] Neurology [id number] [facility] [address] Altman [address] [place] [id number] -Follow up with Oncologist Liya Hassan MD (TC) Vascular Neurology Organic Section Technical Lead of Neurology Call Center: [phone] Addendum by Liya Hassan MD on 08/02/2018 [...] and treatment history recommended. CTA of the chinik of [place]: Moderate atheromatous changes in bilateral [...] statin -Correction to Neurology follow informat ion: [place] Neurology follow up, have patient/family call [phone] or email [email or web address] for vascular/stroke appointment. 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 Social History TypeResponse Smoking Status Never smoker, Exposure to Tobacco Smoke None, Cigarette Smoking Last 365 Days Yes, Reg Smoking Cessation Counseling Yes 05/11/2014 [facility] Family History No Data Provided for This Section Advance Directives No Data Provided for This Section Functional Status No Data Provided for This Section
[2019-10-14] MEDS ORDERED: VASOPRESSIN 100 UNIT in DEXTROSE 5% 100ML 100 ML IV PRN (07:15)
[2019-10-14] MEDS ORDERED: SODIUM CHLORIDE 0.9% 1000ML 1,000 ML IV SCH (07:15)
[2019-10-14] MEDS ORDERED: ALBUMIN 25% 25GM 100ML 0.25 GM/ML BTL IV ONE (07:15)
[2019-10-14] MEDS ORDERED: AZITHROMYCIN 500MG/SOD CHL 0.9% 250ML BAG IV SCH (07:15)
[2019-10-14] MEDS ORDERED: VANCOMYCIN HCL 1GM/NS 250 ML BAG IV SCH (07:15)
[2019-10-14 07:24] LABS: CLARITY,URINE CLOUDY (CLEAR); COLOR,URINE ORANGE (YELLOW); LEUKOCYTE ESTERASE ,URINE SMALL (NEGATIVE); NITRITE,URINE NEGATIVE (NEGATIVE); PROTEIN,URINE DIPSTICK >=300 (NEGATIVE)
[2019-10-14 07:25] LABS: BILIRUBIN,URINE NEGATIVE (NEGATIVE); KETONES,URINE NEGATIVE (NEGATIVE); URINE UROBILINOGEN 0.2 mg/dL (0.2 - 1)
[2019-10-14] MEDS ORDERED: EPINEPHRINE HCL 1:1000 1ML 4 MG in DEXTROSE 5% 250ML 250 ML IV PRN (07:30)
[2019-10-14 07:39] LABS: BACTERIA,URINE MANY /HPF; EPITHELIAL CELLS,URINE FEW /LPF; RBC,URINE >50 /HPF (0-5); WBC,URINE (MAN) >50 /HPF (0-5)
[2019-10-14] MEDS ORDERED: LEVETIRACETAM 500 MG TAB PEG SCH (08:00)
--- NOTE | 2019-10-14 08:54 | Consultation ---
DATE OF CONSULTATION: Pulmonary Critical Care Consultation CHIEF COMPLAINT: Hypothermia and decreased blood pressure, sepsis in a patient with no metastatic lung cancer. HISTORY OF PRESENT ILLNESS: The patient is an 83-year-old man. He has a history of lung cancer that originated in the right upper lobe. He has associated brain metastases. He was treated with surgery and radiation for his metastatic cancer. He required hospitalization to [facility] in July of this year for status epilepticus related to his brain metastases. He was placed on antiepileptic therapy. He was subsequently transferred to community [facility], but required readmission to [facility] in late August for recurrent dyspnea and low blood pressure. He received intravenous fluids and antibiotics. The family eventually decided on a DNR status. They were considering hospice, but had not made a final decision prior [facility] The patient now returns with worsening blood pressure. The temperature is low and CT scan shows a persistent right-sided abnormality. He received intravenous fluids as well as antibiotics. PAST SURGICAL HISTORY: 1. Status post feeding tube. 2. Status post tracheostomy. PAST MEDICAL HISTORY: 1. Metastatic lung cancer. 2. Brain metastases with seizure disorder. 3. Prior CVA. 4. History of recurrent aspiration pneumonia. 5. COPD. 6. Moderate protein-calorie malnutrition requiring a feeding tube. SOCIAL HISTORY: The patient is not actively smoking. He is not a drinker. [facility] FAMILY HISTORY: Family history is noncontributory. ALLERGIES: THERE ARE NO KNOWN DRUG ALLERGIES. REVIEW OF SYSTEMS: The patient had hypothermia. Apparently, he has been less responsive, although his baseline responsiveness is poor. He does not have any complaints of headache. He does have a chronic tracheostomy. He also has a feeding tube in place. There was no history of cough or phlegm production. The patient did not have nausea or vomiting. PHYSICAL EXAMINATION: VITAL SIGNS: The blood pressure is 75/40 on 100% oxygen. He is set on a PRVC mode of ventilation at a rate of 22 with a tidal volume of 450. HEENT: Shows no facial swelling or erythema. There is a tracheostomy tube in good position. There is no adenopathy. CARDIAC: Reveals regular rate and rhythm with normal S1 and S2. There are no murmurs or rubs heard. LUNGS: Auscultation of lungs reveals rhonchorous breath sounds bilaterally. There is no wheezing. ABDOMEN: Soft and nontender. There is no rebound or guarding. There is a feeding tube in place. EXTREMITIES: The patient has no leg edema or calf tenderness. There is no cyanosis. NEUROLOGICAL: He is not responding well. LABORATORY DATA: White blood cell count is 1.9 and hemoglobin is 7.8. The platelet count is 55. BUN to creatinine ratio is 28 to 0.67. The sodium is 121. Lactic acid is 9.1. ALT is 78. AST is 183. Albumin is 1.3. RADIOGRAPHIC DATA: Chest x-ray shows bilateral airspace opacities. There is also a right pleural effusion that seems to be increased in size. There may be some associated hydropneumothorax. IMPRESSION: 1. Severe sepsis secondary to healthcare acquired pneumonia and urinary tract infection present on admission. 2. Acute on chronic respiratory failure. 3. Metastatic lung cancer with brain metastases. 4. History of seizure disorder from brain metastases. 5. Leukopenia. 6. Anemia secondary to chronic blood loss. 7. Atrial fibrillation. 8. Moderate protein-calorie malnutrition. PLAN: 1. The patient has received a fluid bolus of 30 mL/kg. The patient is also receiving albumin. 2. Continue pressors. The patient is currently on Levophed and vasopressin. 3. Continue mechanical ventilation and await ABG results. 4. The patient is now DNR. 5. Prognosis remains very poor. 6. Continue antibiotics to cover for healthcare-acquired organisms. 7. Palliative Care consult. Raman Swenson MD [facility]/MODL /[id number]
[2019-10-14] MEDS ORDERED: FAMOTIDINE 20 MG TAB PEG SCH (09:00)
--- NOTE | 2019-10-14 09:28 | NUR ---
already on palliative care per attendant, on team endeavor.
--- NOTE | 2019-10-14 09:32 | NUR ---
PATIENT HR-0 BP-0 RESP-0 TEMP-85.6 DR. Renu CORDOVA CALLED ([phone]) TO INFORM OF PATIENT PASSING. DR. CORDOVA IN FACILITY AND WILL COME TO PRONOUNCE PATIENT.
--- NOTE | 2019-10-14 09:40 | NUR ---
DR. Renu CORDOVA IN ED TO PRONOUNCE PATIENT.
--- NOTE | 2019-10-14 09:58 | NUR ---
Ms. Bo called and advised of clients demise, was also advised that we would need information for the home.
--- NOTE | 2019-10-14 10:05 | NUR ---
[facility] contacted and client is not a candidate for tissue donation
--- NOTE | 2019-10-14 10:05 | NUR ---
contacted the [place] office and they will call us back with further inquiry and decision.
--- NOTE | 2019-10-14 10:34 | NUR ---
RECEIVED CALL FROM RI. NAKUL TO GAVE RELEASE CASE NUMER [id number]
--- NOTE | 2019-10-14 10:35 | NUR ---
INFORMED DR. Ella RAMOS OF PATIENT EXPIRING
[2019-10-14] MEDS ORDERED: CEFEPIME HCL 2 GM/SOD CHL 0.9% 100 ML BAG IV SCH (14:00)
--- NOTE | 2019-10-14 17:08 | NUR ---
HOME IN ED TO SALES SUPPORT TECHNICIAN PT BODY.
[2019-10-14] MEDS ORDERED: LIDOCAINE HCL 2% 100 MG/5 ML IV ONE (19:54)
[2019-10-14] MEDS ORDERED: EPINEPHRINE HCL SYRINGE ONE (19:54)
[2019-10-14] MEDS ORDERED: ATROPINE SULFATE 0.1 MG/ML 10ML SYR ONE (19:54)
[2019-10-14] MEDS ORDERED: SODIUM CHLORIDE FLUSH 10 ML SYR ONE (19:54)
[2019-10-14] MEDS ORDERED: ENOXAPARIN SOD INJ 40 MG/0.4 ML SYR SC SCH (21:00)
== END 2019-10-14 17:08 | disposition expired | DRG 871 ==
LOC: ER 05:34 → ERHOLD 07:08
PROC: 02HV33Z Insertion of Infusion Device into Superior Vena Cava, Percutaneous Approach (ICD-10-PCS; principal; 2019-10-14)
PROC: B548ZZA Ultrasonography of Superior Vena Cava, Guidance (ICD-10-PCS; 2019-10-14)
PROC: 5A1935Z Respiratory Ventilation, Less than 24 Consecutive Hours (ICD-10-PCS; 2019-10-14)
PROC: 5A12012 Performance of Cardiac Output, Single, Manual (ICD-10-PCS; 2019-10-14)
PROC: 3E043XZ Introduction of Vasopressor into Central Vein, Percutaneous Approach (ICD-10-PCS; 2019-10-14)
DX: A41.9 Sepsis, unspecified organism (principal); R65.21 Severe sepsis with septic shock; J96.20 Acute and chronic respiratory failure, unspecified whether with hypoxia or hypercapnia; J18.9 Pneumonia, unspecified organism; C34.11 Malignant neoplasm of upper lobe, right bronchus or lung; C79.31 Secondary malignant neoplasm of brain; N39.0 Urinary tract infection, site not specified; G40.509 Epileptic seizures related to external causes, not intractable, without status epilepticus; E44.0 Moderate protein-calorie malnutrition; I10 Essential (primary) hypertension; I25.10 Atherosclerotic heart disease of native coronary artery without angina pectoris; F03.90 Unspecified dementia, unspecified severity, without behavioral disturbance, psychotic disturbance, mood disturbance, and anxiety; Z93.0 Tracheostomy status; D70.9 Neutropenia, unspecified; T68.XXXA Hypothermia, initial encounter; D50.0 Iron deficiency anemia secondary to blood loss (chronic); I48.91 Unspecified atrial fibrillation; Z68.21 Body mass index [BMI] 21.0-21.9, adult; Z11.59 Encounter for screening for other viral diseases; Z93.1 Gastrostomy status
CPT/HCPCS: 36415; 36555; 71045; 80053; 81001; 82550; 82553; 83605; 84484; 85025; 85610; 85730; 87040; 87071; 87086; 87186; 87205; 87635; 93005; 94002; 99284; J0171; J0456; J2001; J3370; J7030; J7040; J7070; P9047